=== PATIENT | female | born 1930 | race Caucasian/White ===

== ENCOUNTER 2016-11-09 13:50 | Inpatient (IN) ==
[2016-11-09] MEDS ORDERED: SODIUM CHLORIDE 0.9% 1,000 ML IV STA (14:37)
[2016-11-09] MEDS ORDERED: ALBUTEROL/IPRATROPIUM 3 ML NEB RESP TX STA (14:42)
--- NOTE | 2016-11-09 14:42 | Emergency Department Note ---
Harrison Romero Meredith, am scribing for, and in the presence of, Fredrick Foreman MD 14:39. Kellen Romero Phillip K, MD, personally performed the services described in this documentation, ascribed by Natacha Terry in my presence, and it is both accurate and complete [id number] . Arrival - Arrival Chief Complaint: Shortness of Breath Stated Complaint: ?pneumonia/afib ED Nursing Triage Note: pt found on floor by family this morning. didnt feel well yesterday. has been sick with a cough and cold. pt had low sugar on ems arrival. Mode of Arrival: Stretcher Limitations: No Limitations Source: Patient, Family, Old Records Reviewed, RN Notes Reviewed Time Seen by Provider: 11/09/16 14:32 - History of Present Illness HPI Narrative: Pt is an 86 y/o white female transferred to the ED by EMS after family found her on the floor this morning. When EMS arrived at [facility] she had a blood sugar of 35 mg/dL and was in atrial fibrillation. Pt was given D5 and normal saline. Pt had a liter of fluid and Zosyn IV. Her sugar has now improved and she is back in normal sinus rhythm. Pt has been ill with a cough and cold for about a week. She confirms fever, chills, and shortness of breath. At [facility], pt had a scan which showed a right lower lobe pneumonia. Pt has a history of HTN , HLD, thyroid disorder, and NIDDM. Daughter states pt is a former smoker. Onset (ago): hour(s) Allergies/Adverse Reactions: Allergies Allergy/AdvReac Type Severity Reaction Status Date / Time No Known Allergies Allergy Unverified 11/09/16 14:11 Review of System - Review of System 12 point system: reviewed and no additional remarkable complaints except as stated - Review of System Constitutional: Present: as per HPI, chills, fever, other (hypoglycemia) Respiratory: Present: as per HPI, cough, other (SOB) Cardiovascular: Present: as per HPI, other (a-fib) Medical,Surgical,& Family Hx - Medical History Cardio: History of: Hypertension Endocrine: History of: Diabetes Mellitus (NIDDM), Dyslipidemia, Thyroid Disorder - Surgical History Neurologic Surgeries: Patient denies: Neurologic Surgery - Family History Family History: Denies;: Additional Family History - Social History Smoking Status: Former smoker Exam Vital Signs: Vital Signs Temperature 97.5 F L 11/09/16 14:55 Pulse Rate 92 H 11/09/16 16:30 Respiratory Rate 20 11/09/16 16:30 Blood Pressure 113/61 11/09/16 16:30 O2 Sat by Pulse Oximetry 97 11/09/16 16:30 - General General appearance: alert, in no apparent distress - Head Head exam: Present: atraumatic, normocephalic - Eye Eye exam: Present: normal appearance, PERRL, EOMI - ENT ENT exam: Present: mucous membranes dry, normal external ear exam - Neck Neck exam: Present: full ROM, trachea midline. Absent: tenderness, meningismus , lymphadenopathy, thyromegaly - Chest Chest inspection: Present: symmetric chest wall rise. Absent: tenderness, rash - Respiratory Respiratory exam: Present: rales, wheezes (expiratory) - Cardiovascular Cardiovascular exam: Present: normal rhythm, tachycardia - Abdominal Exam Abdominal exam: Present: soft, normal bowel sounds. Absent: distention, tenderness - Extremities Exam Extremities exam: Present: full ROM, normal capillary refill. Absent: tenderness, pedal edema, calf tenderness - Back Exam Back exam: Present: full ROM. Absent: tenderness - Neurological Exam Neurological exam: Present: alert, oriented X3, CN II-XII intact. Absent: motor sensory deficit - Psychiatric Psychiatric exam: Present: normal affect, normal mood - Skin Skin exam: Present: warm, dry, intact, normal color Course Course Narrative: Patient discussed with the hospitalist who admitted for IV fluids and antibiotics. Results - Labs CBC & BMP: 11/09/16 15:15 11/09/16 15:15 Lab Results: I have reviewed the patients labs Labs: Laboratory Tests 11/09/16 15:15 WBC 15.8 H RBC 3.69 L Hgb 10.6 L Hct 33.7 L MCHC 31.5 L Plt Count 189 Neut % (Auto) 95.4 H Lymph % (Auto) 1.3 L Neut # (Auto) 15.1 H Lymph # (Auto) 0.2 L Laboratory Tests 11/09/16 11/09/16 14:06 15:15 Sodium 147 H Potassium 3.0 L Chloride 110 H Anion Gap 18.0 H BUN 51 H Creatinine 1.30 H BUN/Creatinine Ratio 39.00 H Glucose 154 H POC Glucose 245 H Calculated Osmolality 308.4 H Calcium 7.9 L ALT 12 L Total Protein 5.1 L Albumin 2.2 L Albumin/Globulin Ratio 0.7 L - EKG EKG results: interpreted by SAAD (sinus tachycardia) - Diagnostic Findings Procedure: Chest x-ray: report reviewed by me (Dense consolidation of the right upper lobe. Enlarged heart. Suspected hiatal hernia. ) Disposition Clinical Impression: Right upper lobe pneumonia, rule out early sepsis Case discussed with: patient Disposition: Still a Patient Condition: Critical
--- NOTE | 2016-11-09 14:53 | XRay Report ---
Portable chest. Indication: Shortness of breath. Comparison: Exam from earlier today. The heart is enlarged. Calcific plaque is present within the aortic knob. There is a large hiatal hernia suggested. There is consolidation of the right upper lobe. No pneumothorax or pleural effusion. Degenerative changes of both shoulders. Postoperative changes of the right shoulder. Scoliosis and degenerative change in the spinal column. Carotid bulb calcification. Impression: Dense consolidation of the right upper lobe. Enlarged heart. Suspected hiatal hernia. Follow-up recommended. PROCEDURE INTERPRETED AT [facility] DEPARTMENT OF RADIOLOGY Final Report Signed by: Dr. Mulu Yoon
[2016-11-09 15:34] LABS: Basophils # 0.1 10*3/uL (0.0-0.2); Basophils % 0.6 % (0.0-0.8); Hematocrit 33.7 VOL% (35.7-47.0); Hemoglobin 10.6 GM/DL (12.0-16.0); Immature Granulocytes % 0.8 %; Immature Granulocytes Absolute 0.13 #; Lymphocytes # 0.2 10*3/uL (1.4-4.0); Lymphocytes % 1.3 % (21.3-54.2); Mean Corpuscular HGB Conc 31.5 GM/DL (32-36); Mean Corpuscular Hemoglobin 29 PG (27-34); Mean Corpuscular Volume 91.3 FL (87-102); Monocytes # 0.3 10*3/uL (0.11-0.8); Monocytes % 1.9 % (1.7-12.7); NRBC # 0.02 10*3/uL; Neutrophils # 15.1 10*3/uL (1.4-7.4); Neutrophils % 95.4 % (38.7-73.9); Platelet Count 189 T/CUMM (130-400); Red Blood Count 3.69 MC/CUMM (3.8-5.5); Red Cell Distribution Width 17.1 % (9.3-17.3); White Blood Count 15.8 T/CUMM (4-12)
[2016-11-09 15:49] LABS: Albumin 2.2 G/DL (3.4-5.0); Bilirubin,Total 0.6 MG/DL (0.2-1.0); Calcium 7.9 MG/DL (8.5-10.1); Magnesium 2.2 MG/DL (1.8-2.4); Osmolality,Calculated 308.4 MOS/KG (273-304); Total Protein 5.1 G/DL (6.4-8.3)
--- NOTE | 2016-11-09 16:08 | Hospitalist History & Physical ---
<Mukund Esparza - Last Filed: 11/09/16 17:11> Assessment and Plan (1) RLL pneumonia Status: Acute Assessment and plan: Breathing treatments ordered. Oxygen therapy initiated. IV antibiotics ordered. Will continue to monitor Current Visit: Yes (2) Respiratory distress Status: Acute Assessment and plan: Pt. placed in ICU for close monitoring. ABGs ordered. O2 ordered for pt. Current Visit: Yes (3) Leukocytosis Status: Acute Assessment and plan: Believed to be secondary to underlying disease process. Will monitor CBC for any changes. Current Visit: Yes History of Present Illness Chief complaint: shortness of breath History of present illness: Ms. Lake is a 86-year-old white female patient was brought into the ED today via EMS from [facility]. Pt. was found lethargic on floor at home this am by granddaughter. Pt's daughter is at bedside and stated pt had a similar incident yesterday afternoon where she was found lethargic on living room floor. Pt. states that she doesn't remember episode. Pt's daughter said that the pt. didn't want to be brought in for examination at that time. Today when pt was found, BP was taken at home and reported to be "low". Upon arrival to patient's home, EMS discovered pt to be hypoglycemic with blood sugar of 35. The patient was taken to [facility] for stabilization. At [facility] patient was found to be hypotensive and in afib with RLL pneumonia. The patient was transferred here for further evaluation. Pt has been ill with a cough and cold for about a week. Pt. states that the cough was productive but she doesn't know how it looks. She did confirm feeling feverish and short of breath. Pt. is visibly having difficulties with breathing. O2 in ER at 0.5. R D [employer] increased to 2L. Pt. is a former smoker with a history of htn, hld, thyroid disorder. Pt. will be admitted to the ICU Allergies Allergy/AdvReac Type Severity Reaction Status Date / Time No Known Allergies Allergy Unverified 11/09/16 14:11 Medical,Surgical,& Family Hx - Medical History Cardio: History of: Hypertension Endocrine: History of: Diabetes Mellitus (NIDDM), Dyslipidemia, Thyroid Disorder - Surgical History Neurologic Surgeries: Patient denies: Neurologic Surgery - Family History Family History: Denies;: Additional Family History - Social History Smoking Status: Former smoker Lives With:: Children Functional capacity: independent ambulation - Constitutional Constitutional: Present: chills, fever(s) - EENT Eyes: Absent: loss of vision - Cardiovascular Cardiovascular: Absent: chest pain at rest - Respiratory Respiratory: Present: cough, dyspnea, wheezing - Gastrointestinal Gastrointestinal: Absent: abdominal pain, nausea, vomiting - Genitourinary Genitourinary: Absent: difficulty urinating - Neurological Neurological: Present: behavioral changes, confusion, memory loss Exam - Constitutional Vitals: Period Temp Pulse Resp BP Sys/Aquino Pulse Ox Last 24 Hr 97.5 F-97.5 F 89-98 18-24 97-109/57-66 96-98 General appearance: normal weight, mild distress - Head Head exam: Present: normal inspection, normocephalic - Eye Eye exam: Present: EOMI Pupils: Present: ROMANA - Respiratory Respiratory exam: Present: wheezes - Cardiovascular Cardiovascular exam: Present: irregular rhythm - GI/Abdominal GI/Abdominal exam: Present: normal bowel sounds, soft. Absent: tenderness - Extremities Exam Extremities exam: Present: normal inspection, normal capillary refill, full ROM. Absent: edema - Neurological Exam Neurological exam: Present: alert, oriented X3, normal gait - Psychiatric Psychiatric exam: Present: normal affect, normal mood - Skin Skin exam: Present: normal color, warm, dry Results - Labs CBC & BMP: 11/09/16 15:15 11/09/16 15:15 Lab Results: I have reviewed the past 24 hour labs <Randi Hagen - Last Filed: 11/10/16 07:33> History of Present Illness History of present illness: Ms. Lake is a 86 year old female with hypoglycemic episode,pneumonia and respiratory distress. ICU IV Zosyn ABG IV steroids SSC BC,SC IVF Nebs treatment Exam - Constitutional Vitals: Period Temp Pulse Resp BP Sys/Aquino Pulse Ox Last 24 Hr 97.4 F-98.8 F 7-100 19-28 76-140/41-75 91-100 Results - Labs CBC & BMP: 11/10/16 04:14 11/10/16 04:14
[2016-11-09] MEDS ORDERED: DEXTROSE 50% 25 GM/50 ML VIAL IV PRN (17:34)
[2016-11-09] MEDS ORDERED: guaiFENesin/DM ER 600-30 MG TABLET PO PRN (17:34)
[2016-11-09] MEDS ORDERED: ENOXAPARIN 40 MG/0.4 ML SYRINGE SUBCUT SCH (17:34)
[2016-11-09] MEDS ORDERED: ONDANSETRON 4 MG/2 ML VIAL IV PRN (17:34)
[2016-11-09] MEDS ORDERED: GLUCAGON 1 MG VIAL IM PRN (17:34)
[2016-11-09] MEDS ORDERED: POTASSIUM CHLORIDE INJ 10 MEQ in SODIUM CHLORIDE 0.9% 1,000 ML IV SCH (17:34)
[2016-11-09] MEDS ORDERED: ACETAMINOPHEN 325 MG TABLET PO PRN (17:34)
[2016-11-09] MEDS ORDERED: SODIUM CHLORIDE 0.9% 1,000 ML IV SCH (17:34)
[2016-11-09] MEDS ORDERED: methylPREDNISolone SOD SUC 40 MG/1 ML VIAL ONE (17:55)
[2016-11-09] MEDS: methylPREDNISolone SOD SUC 40 MG/1 ML VIAL IV SCH (18:14)
[2016-11-09 18:20] LABS: ABG Base Excess -5.4 MMOL/L (-2.5-2.5); ABG HCO3 17.7 MMOL/L (20-26); ABG Oxygen Saturation 94.3 % (95-100); ABG PCO2 27.1 MM HG (35-48); ABG PH 7.433 (7.35-7.45); ABG PO2 73.4 MM HG (80-95); ABG TCO2 18.5 MMOL/L (23-27); Allen Test Positive
[2016-11-09 18:43] LABS: Band Neutrophils 9 % (0-10); Lymphocytes 1 % (20-55); Segmented Neutrophils 87 % (50-85); Total Cells Counted 100
[2016-11-09 18:44] LABS: Platelet Estimate Adequate; Polychromasia Few
--- NOTE | 2016-11-09 18:51 | CT Report ---
CT of the head without contrast. Indication: Right-sided weakness. Comparison: Exam from earlier today at an outside hospital. There is calcific plaque present within the intracranial internal carotid arteries and vertebral arteries. The ventricles are normal in size and configuration for the patient's age. There is no mass effect, midline shift, or area of hemorrhage. No cortical infarcts are seen at this time. There are prominent areas of low density in the periventricular white matter, likely attributable to chronic microvascular ischemia. There are lacunar infarcts in the basal ganglia bilaterally, worse on the right, including the right external capsule. The calvarium is intact. The included paranasal sinuses and the mastoid air cells are clear. Impression: Prominent findings of chronic microvascular ischemia. Lacunar infarcts within the basal ganglia. No cortical infarct is seen at this time. The CT exam was performed using one or more of the following dose reduction techniques: Automated exposure control, adjustment of the mA and/or kV according to patient size, or use of iterative reconstruction technique. PROCEDURE INTERPRETED AT [facility] DEPARTMENT OF RADIOLOGY Final Report Signed by: Dr. Mulu Yoon
[2016-11-09] MEDS: INSULIN LISPRO 100 UNIT/ML SUBCUT SCH ×2 (19:01→23:51)
[2016-11-09] MEDS: PIPERACILLIN/TAZOBACTAM 3,375 MG in SODIUM CHLORIDE 0.9% 100 ML IV SCH (19:27)
[2016-11-09 19:56] LABS: INR 1.1; PT Patient Result 11.9 SECS; Partial Thromboplastin Time 36.4 SECS (0-40)
[2016-11-09] MEDS ORDERED: tiZANidine 4 MG TABLET PO PRN (21:08)
[2016-11-09] MEDS ORDERED: SODIUM CHLORIDE 0.9% 500 ML IV ONE (22:18)
[2016-11-09] MEDS ORDERED: PHENYLEPHRINE DRIP 40 MG/250 ML PREMIX IV ONE (23:10)
--- NOTE | 2016-11-09 23:16 | Event Note ---
Patient had a change in mental status. She is becoming less responsive. We repeated a CT scan. Results of that are pending. This is a second CT scan of the night. According to nursing this is different than how she was earlier. When I examined the patient she is minimally responsive but will open up her eyes when you talk to her. Her blood pressure is significantly lower ordered pressors to be placed on the patient. This could be part of a sepsis scenario or could be a stroke.
[2016-11-09] MEDS ORDERED: PHENYLEPHRINE DRIP 40 MG/250 ML PREMIX IV SCH (23:30)
[2016-11-10] MEDS: methylPREDNISolone SOD SUC 40 MG/1 ML VIAL IV SCH ×3 (00:38→16:26)
[2016-11-10] MEDS: PIPERACILLIN/TAZOBACTAM 3,375 MG in SODIUM CHLORIDE 0.9% 100 ML IV SCH ×3 (03:20→20:05)
[2016-11-10 04:50] LABS: Basophils # 0.1 10*3/uL (0.0-0.2); Basophils % 0.6 % (0.0-0.8); Hematocrit 29.9 VOL% (35.7-47.0); Hemoglobin 9.6 GM/DL (12.0-16.0); Immature Granulocytes % 0.8 %; Immature Granulocytes Absolute 0.14 #; Lymphocytes # 0.2 10*3/uL (1.4-4.0); Mean Corpuscular HGB Conc 32.1 GM/DL (32-36); Mean Corpuscular Hemoglobin 29 PG (27-34); Mean Corpuscular Volume 90.1 FL (87-102); Monocytes # 0.2 10*3/uL (0.11-0.8); Monocytes % 1.2 % (1.7-12.7); Neutrophils # 17.2 10*3/uL (1.4-7.4); Neutrophils % 96.4 % (38.7-73.9); Platelet Count 185 T/CUMM (130-400); Red Blood Count 3.32 MC/CUMM (3.8-5.5); Red Cell Distribution Width 17.3 % (9.3-17.3); White Blood Count 17.8 T/CUMM (4-12)
[2016-11-10 05:11] LABS: Alanine Aminotransferase 11 U/L (13-56); Albumin 1.8 G/DL (3.4-5.0); Alkaline Phosphatase 88 U/L (45-117); Aspartate Amino Transferase 15 U/L (0-37); Blood Urea Nitrogen 45 MG/DL (7-18); Calcium 7.8 MG/DL (8.5-10.1); Cholesterol 69 MG/DL (50-200); Glucose 141 MG/DL (74-106); HDL Cholesterol < 10 MG/DL (40-60); Magnesium 2.3 MG/DL (1.8-2.4); Potassium 3.5 MMOL/L (3.5-5.1); Sodium 150 MMOL/L (136-145); Total Protein 4.5 G/DL (6.4-8.3); Triglycerides 102 MG/DL (2-150); VLDL CHOLESTEROL 20.4 MG/DL
[2016-11-10 05:14] LABS: Band Neutrophils 4 % (0-10); Burr Cells Slight; Platelet Estimate Normal; Segmented Neutrophils 95 % (50-85); Total Cells Counted 100
[2016-11-10] MEDS: INSULIN LISPRO 100 UNIT/ML SUBCUT SCH ×3 (05:54→18:35)
--- NOTE | 2016-11-10 06:32 | CT Report ---
CT head/brain wo con Indication: 86-year-old female, altered mental status. Change occurred in [address] BRAIN WITH AND WITHOUT CONTRAST DLP: 1073 mGy*cm. One or more of the following dose reduction techniques was used: Automated exposure control, adjustment of the mA and/or kV according the patient size, or use of iterative reconstruction techniques. Comparison: 11/10/2016 at 1839 hours. Date of admission: 11/10/2016. Technique: Axial CT images of the brain were obtained before and after the IV administration of Omnipaque 350, 80 cc. Findings: Generalized atrophy and extensive patchy periventricular white matter hypodensities again shown, stable. Prior left frontal lobe infarct is stable. No acute hemorrhage. No mass or mass effect. No new ischemic changes identified on CT. Vascular calcinosis of the augustine of Leon noted. No bone lesion seen. Impression: No change from 4 hours earlier. PROCEDURE INTERPRETED AT [facility] DEPARTMENT OF RADIOLOGY Final Report Signed by: Quintin Irene M.D.
[2016-11-10] MEDS ORDERED: PANTOPRAZOLE 40 MG TABLET PO SCH (09:00)
[2016-11-10] MEDS: ASPIRIN 300 MG SUPP RECTAL SCH (09:22)
--- NOTE | 2016-11-10 09:42 | Hospitalist Progress Note ---
Assessment and Plan (1) Altered mental status Status: Acute Assessment and plan: CT head x2- showed no acute changes. Patient is less conversive, her right UE is flaccid. Her WBC is up,no fever documented. Her sodium is higher at 150. Plan DC IV Nacl start free water MR of the brain Speech therapy for swallowing eval Carotids Echo cardiac enzymes, ammonia level Aspirin Neuro consult Current Visit: Yes (2) Hypernatremia Status: Acute Assessment and plan: will start free water, dc Nacl, follow response Current Visit: Yes (3) Right upper lobe pneumonia Status: Acute Assessment and plan: continue with IV Zosyn. follow cultures Current Visit: Yes (4) Acute respiratory distress Status: Acute Assessment and plan: continue with IV steroids, nebs treatment and IV antibiotics Current Visit: Yes (5) Right sided weakness Status: Acute Assessment and plan: will r/o a TIA vs CVA Plan MRI ASA stroke workup lipids-noted Current Visit: Yes Hospitalist: Subjective Interval history: Patient had a mental status change overnight. A repeat CT head didnt show any acute change. This am, she was less conversive, restless and her right upper extremity was flaccid with some weakness on her right side. Exam - Constitutional Vitals: Period Temp Pulse Resp BP Sys/Aquino Pulse Ox Last 24 Hr 97.4 F-98.8 F 7-100 19-28 76-140/41-75 91-100 General appearance: no acute distress, other (right sided weakness UE>LE) - Head Head exam: Present: normal inspection - Respiratory Respiratory exam: Present: clear to auscultation bilaterally - Cardiovascular Cardiovascular exam: Present: regular rate and rhythm - GI/Abdominal GI/Abdominal exam: Present: normal bowel sounds - Extremities Exam Extremities exam: Present: normal inspection - Neurological Exam Neurological exam: Present: alert (less conversive, flaccid RUE), other Results - Labs CBC & BMP: 11/10/16 04:14 11/10/16 04:14 Lab Results: I have reviewed the past 24 hour labs
--- NOTE | 2016-11-10 10:41 | Physician Query Form ---
CLICK EDIT DOCUMENT TO SELECT QUERY ANSWER --> OK --> SIGN Clarisa Lindsey RN Clinical Vendor Relationship Manager W) [phone] (f) [phone] [email or web address]: Make your selection(s) from the choices in EACH section by typing an "x" and enter comments in the comment section. Please use your independent medical judgment in providing your response. This request does not imply that any particular answer is desired or expected. CLINICAL INDICATORS: (Providers should not edit this section) Based on documentation of "Acute respiratory distress" "Acute pneumonia" Oxygen saturation 94% on 2L NC. tachypnea, shortness of breath, labored respirations. respirations of 28. If possible, please further clarify the type and acuity of respiratory diagnosis : AxCUITY: (x ) Acute ( ) Chronic ( ) Acute on Chronic TYPE: ( x) Respiratory failure with hypoxia ( ) Respiratory failure with hypercapnia ( ) Respiratory Arrest ( ) Postprocedural/postoperative respiratory failure ( ) ARDS (Adult/Acute Respiratory Distress Syndrome) ( ) Other, please specify: ( ) Clinically unable to determine Recognized criteria for respiratory failure PH <7.35 or >7.45 PO2 <60 PCO2 >50 RR >24 O2 Sat <90% on RA or <95% on O2 Use of accessory muscles Unable to speak in full sentences Intubation is not required COMMENTS: Use of terms such as suspected, likely, or probable (associated with a specific diagnosis that is being evaluated, monitored, or treated as if it exists) are acceptable and can be restated in the discharge summary if not ruled out. MTDD
--- NOTE | 2016-11-10 10:45 | Physician Query Form ---
CLICK EDIT DOCUMENT TO SELECT QUERY ANSWER --> OK --> SIGN Clarisa Lindsey RN Clinical Representative W) [phone] (f) [phone] [email or web address]: Make your selection(s) from the choices in EACH section by typing an "x" and enter comments in the comment section. Please use your independent medical judgment in providing your response. This request does not imply that any particular answer is desired or expected. CLINICAL INDICATORS: (Providers should not edit this section) Based on documentation of "Rule out early sepsis" "Blood pressure is significantly lower. ordered pressors. Could be a part of sepsis scenario" "Had change in mental status" Treated with IV Zosyn, IV Jaycob, and IV Solu Medrol. WBC 17.8. Banded Neutrophils 9 Please clarify which, if any, of the following is the etiology of the above symptoms and treatment rendered: (x ) Septic Shock (severe sepsis with hypotension) ( ) Severe Sepsis (sepsis with acute organ failure) - Please specify type acute organ failure: ( ) Sepsis due to a localized infection, please specify site: ( ) Sepsis due to a device, implant or graft, please specify: ( ) Localized infection only, without systemic illness, please specify site: ( ) Bacteremia (abnormal lab finding only, does not indicate systemic illness) ( ) Other condition, please specify: ( ) Clinically unable to determine Criteria for Sepsis (SIRS due to an infection) should be based on 2 or more of the following being present: Temperature > 101F or < 96.8F WBC > 12,000 or < 4,000, or > 10% bands Tachycardia HR > 90 beats/minute Tachypnea RR > 20 breaths/minute or PaCO2 > 32mmHg Lactate level > 2.0 mmol/L (>4 is equivalent to severe sepsis) Altered Mental Status Mottling of skin or prolonged capillary refill Non-diabetic hyperglycemia (blood sugar >120 mg/dl) Other evidence of acute organ failure associated with sepsis ( severe sepsis) COMMENTS: Use of terms such as suspected, likely, or probable (associated with a specific diagnosis that is being evaluated, monitored, or treated as if it exists) are acceptable and can be restated in the discharge summary if not ruled out. MTDD
--- NOTE | 2016-11-10 10:48 | Physician Query Form ---
CLICK EDIT DOCUMENT TO SELECT QUERY ANSWER --> OK --> SIGN Clarisa Lindsey RN Clinical Upholstery Trimmer W) [phone] (f) [phone] [email or web address]: Make your selection(s) from the choices in EACH section by typing an "x" and enter comments in the comment section. Please use your independent medical judgment in providing your response. This request does not imply that any particular answer is desired or expected. CLINICAL INDICATORS: (Providers should not edit this section) Based on documentation of "Acute pneumonia" Acute hyponatremia" "Acute altered mental status" "Less conversive" Treated with IV Zosyn, IV Solu Medrol, and NS bolus. ACUITY: (x ) Acute ( ) Acute on Chronic ( ) Chronic ( ) Clinically unable to determine NATURE: ( ) Delirium due to general medical condition ( ) Dementia (x ) Encephalopathy ( ) Unconscious ( ) Transient level of awareness ( ) Comatose ( ) Locked-in State ( ) Persistent Vegetative State ( ) Other, please specify: ( ) Clinically unable to determine Please indicate the underlying cause of the altered mental status (CHECK ALL THAT APPLY): ( ) Baseline dementia ( ) Alzheimer's disease ( ) Parkinson's disease ( ) Lewy body dementia (x ) Acute stroke ( ) Late effect of stroke ( ) Reactive (from emotional stress, psychological trauma) ( ) Due to narcotics/other drugs ( ) Post procedural delirium ( ) Transient ischemic attack ( ) Generalized cerebral edema ( ) Normal pressure hydrocephalus ( ) Psychiatric illness ( ) Other, please specify: ( ) Clinically unable to determine Please indicate if there is an infection, sepsis, dehydration or specific organ failure that is causing the dementia. Be specific with clarifying the relationship between that process and the mental status change. COMMENTS: Use of terms such as suspected, likely, or probable (associated with a specific diagnosis that is being evaluated, monitored, or treated as if it exists) are acceptable and can be restated in the discharge summary if not ruled out. MTDD
--- NOTE | 2016-11-10 10:53 | Physician Query Form ---
CLICK EDIT DOCUMENT TO SELECT QUERY ANSWER --> OK --> SIGN Clarisa Lindsey RN Clinical Home Care Attendant W) [phone] (f) [phone] [email or web address] PROVIDERS: Make your selection(s) from the choices in EACH section by typing an "x" and enter comments in the comment section. Please use your independent medical judgment in providing your response. This request does not imply that any particular answer is desired or expected. CLINICAL INDICATORS: (Providers should not edit this section) Based on documentation of "Had a change in mental status" "Blood pressure is significantly lower. ordered pressors. Could be a stroke" "CT didnt show any acute changes" "Less conversive, restless, right upper ext was flaccid, weakness on right side." CT done. NS bolus given, IV JOHANNA started. Based on the above, could you clarify the appropriate diagnosis, if significant , that supports the above abnormalities and additional evaluation, monitoring, and/or treatment rendered: x( ) Left sided hemiparesis due to acute CVA ( ) Left sided hemiparesis due to ( ) Did not have a CVA ( ) Other, please specify: ( ) Clinically unable to determine COMMENTS: Use of terms such as suspected, likely, or probable (associated with a specific diagnosis that is being evaluated, monitored, or treated as if it exists) are acceptable and can be restated in the discharge summary if not ruled out. MTDD
--- NOTE | 2016-11-10 11:12 | Magnetic Resonance Report ---
MR angio head wo con (COW) Indication: Right-sided weakness Comparison: None Technique: MRA of the brain was performed without the use of intravenous contrast. 3-D reformats provided. Findings: Study somewhat limited secondary to motion. No significant vessel cut off or gross evidence of aneurysm formation demonstrated within the anterior or posterior intracranial circulation. origin of the right PILLAR MAN noted. The left posterior commuting artery is not well demonstrated. IMPRESSION: Limited exam without convincing evidence of significant intracranial arterial abnormality. PROCEDURE INTERPRETED AT [facility] DEPARTMENT OF RADIOLOGY Final Report Signed by: Dr Hernan Moreira
[2016-11-10 11:16] LABS: ABG Base Excess -10.9 MMOL/L (-2.5-2.5); ABG HCO3 15.9 MMOL/L (20-26); ABG Oxygen Saturation 96.6 % (95-100); ABG PCO2 23.3 MM HG (35-48); ABG PH 7.359 (7.35-7.45); ABG TCO2 11.8 MMOL/L (23-27)
[2016-11-10] MEDS ORDERED: DILTIAZEM INJ 100 MG in SODIUM CHLORIDE 0.9% 100 ML IV SCH (11:30)
[2016-11-10] MEDS: PANTOPRAZOLE 40 MG VIAL IV SCH (11:41)
[2016-11-10] MEDS ORDERED: DIGOXIN 0.5 MG/2 ML AMP IV ONE (12:26)
--- NOTE | 2016-11-10 12:39 | Cardiology Consult Note ---
<Mulu Otero - Last Filed: 11/10/16 13:52> Assessment and Plan - Time spent with patient Time spent with patient: Greater than 30 minutes (1) Atrial fibrillation with rapid ventricular response Status: Acute Assessment and plan: This appears to be a new onset. IV digoxin and Cardizem unsuccessful. After further discussing this patient with Dr. Ochoa, we will switch patient to IV amiodarone and anticoagulate her with heparin drip. Current Visit: Yes (2) Altered mental status Status: Acute Assessment and plan: Urine culture and sputum culture revealed no growth at 12 hours. Blood cultures pending. Carotid ultrasound pending. CT head x2- showed no acute changes. Head MRA showed no evidence of significant intracranial arterial abnormality. Neurology has been consulted by attending. Current Visit: Yes (3) Dyslipidemia Status: Chronic Assessment and plan: Continue current plan of care with lipid lowering agent. Current Visit: Yes (4) Right sided weakness Status: Acute Assessment and plan: Defer further management to attending and neurology. Current Visit: Yes (5) Right upper lobe pneumonia Status: Acute Assessment and plan: Continue current plan of care with antibiotics. Current Visit: Yes (6) Hypertension Status: Acute Assessment and plan: Patient has actually been hypotensive this admission. All antihypertensive medications are on hold. Current Visit: Yes (7) Hypothyroidism Status: Acute Assessment and plan: I have ordered a TSH Current Visit: Yes (8) Anemia Status: Acute Assessment and plan: Patient is mildly anemic. Will order anemia profile and check stools for occult blood. Current Visit: Yes (9) Acute respiratory distress Status: Acute Assessment and plan: Continue with duo nebs, IV steroids and IV antibiotics. Current Visit: Yes History of Present Illness - Data of Consult Patient: new to practice Consult date: 11/10/16 Requesting Physician: Randi Hagen - Consult Narrative Reason for consult: Atrial fibrillation with rapid ventricular response History of present illness: Disclaimer: Patient is a very poor historian. Unable to obtain adequate review of systems and past medical history due to patient's altered mental status. Majority of information in this HPI was obtained from medical personnel and past medical records. Ms. Lake is a 86 year old female without known history of coronary artery disease, not routinely followed by cardiology. Patient was brought into the emergency department yesterday via EMS from [facility]. Patient's granddaughter found her at home with altered mental status. At that time the patient's granddaughter arrived at her home the patient was on the floor and seemed very lethargic. Patient has cardiac risk factors significant for advanced age, hyperlipidemia former smoker, sedentary lifestyle and hypertension. Patient has a past medical history of hypothyroidism, patient is on Synthroid. No known prior history of atrial fibrillation. Patient was transferred from [facility] yesterday after being found at home by her granddaughter with altered mental status. Patient was noted to be on the floor at the time of her granddaughters arrival to her home and seemed to be very lethargic. Her blood pressure was noted to be "low" when her granddaughter took it at home. Apparently, she had a similar incident 2 days ago where she was found to be lethargic on living room floor. However, at that time the patient refused to go to ER for further evaluation. Upon arrival to [facility] ER yesterday, patient was noted to be hypoglycemic with a blood sugar of 35. She was also hypotensive and noted to be in atrial fibrillation. She was then transferred to [facility]. Upon arrival to [place] ER she was noted to be in normal sinus rhythm. Chest x-ray revealed right lower lobe pneumonia. Head CT revealed no cortical infarct. Patient was admitted to the hospitalist' s service and housed in the ICU. Late last night patient was noted to have a change in mental status. She became less responsive. CT head was repeated at that time. No new findings were noted. She was seen and examined in the ICU. Patient is lethargic this afternoon and appears to be in mild distress. Altered mental status continues. Oxygen saturations are stable. Right-sided weakness noted. Nurse reports that after she came back from MRI she was noted to be in atrial fibrillation with rapid ventricular response. Patient did not respond to IV Cardizem nor IV digoxin. Will change patient to IV amiodarone at this time and anticoagulate her with heparin drip. Head MRA showed no evidence of significant intracranial arterial abnormality. Neurology has been consulted by attending. Echo has been ordered. Carotid ultrasound pending. We will continue to monitor patient closely in the ICU. CC: Randi Hagen MD - Home Medications and Allergies Home Medications: Home Medications Medication Instructions Recorded Confirmed Type Levothyroxine Tab [Synthroid Tab] 0.025 mg PO DAILY 11/09/16 11/09/16 History Lisinopril/Hydrochlorothiazide 1 tablet PO DAILY 11/09/16 11/09/16 History [Lisinopril-Hctz 10-12.5 mg Tab] Lovastatin 80 mg PO AC LUNCH 11/09/16 11/09/16 History Sertraline [Zoloft] 50 mg PO BEDTIME 11/09/16 11/09/16 History rOPINIRole [Requip] 0.5 mg PO BEDTIME 11/09/16 11/09/16 History tiZANidine [Zanaflex] 2 mg PO Q8HR PRN 11/09/16 11/09/16 History Allergies/Adverse Reactions: Allergies Allergy/AdvReac Type Severity Reaction Status Date / Time No Known Allergies Allergy Unverified 11/09/16 14:11 ROS unobtainable: due to mental status Medical,Surgical,& Family Hx - Medical History Cardio: History of: Hypertension Neurology: History of: Dementia Endocrine: History of: Dyslipidemia, Thyroid Disorder Gastrointestinal: History of: Diverticulitis/ Diverticulosis, Ulcerative Colitis - Surgical History Neurologic Surgeries: Patient denies: Neurologic Surgery HEENT Surgeries: Surgical HX of: Eye Surgery (cataracts) Abdominal Surgeries: Surgical HX of: Cholecystectomy Reproductive Surgeries: Surgical HX of;: Hysterectomy Orthopedic Surgeries: Surgical HX of;: Orthopedic Surgery (shoulder repair) - Family History Family History: Reports;: Family Cancer (father colon, brother gastric), Family Heart Disease (siblings CABG, Mother [place], brother [place]) Denies;: Additional Family History - Social History Smoking Status: Former smoker Physical Examination Vital Signs Temp Pulse Resp BP Pulse Ox 97.5 F L 98 H 18 109/66 98 11/09/16 14:02 11/09/16 14:02 11/09/16 14:02 11/09/16 14:02 11/09/16 14:02 General: Present: Other (Patient appears lethargic and in mild distress.) Neck: Present: Supple Neck, Midline Trachea, No Masses Cardiac: Present: No Murmur, Tachycardia, Other (Atrial fibrillation with rapid ventricular response). Absent: Gallop Lungs: Present: Bibasilar Rales, Scattered Rhonchi, Oxygen Neuro: Present: Other (Right upper extremity weakness) Abdomen: Present: Soft, Active Bowel Sounds, No Masses, Non-Tender. Absent: Tender, Firm Skin: Present: Clear. Absent: Rash, Suspicious Lesions, Ulceration Extremities: Present: No Clubbing, No Cyanosis, No Edema, Normal Upper Extr. Pulses, Normal Lower Extr. Pulses Result/EKG - Labs CBC & BMP: 11/10/16 04:14 11/10/16 04:14 Lab Results: I have reviewed the past 24 hour labs Labs: Laboratory Results - last 24 hr 11/09/16 11/09/16 11/09/16 18:15 18:24 18:25 WBC RBC Hgb Hct MCV MCH MCHC RDW Plt Count MPV Neut % (Auto) Lymph % (Auto) [place] % (Auto) Eos % (Auto) Baso % (Auto) Neut # (Auto) Lymph # (Auto) [place] # (Auto) Eos # (Auto) Baso # (Auto) Total Counted Immature Gran % Nucleated RBC % Immature Gran # Segmented Neutrophils Band Neutrophils Monocytes Nucleated RBCs # Platelet Estimate Yariel Cells Morphology Comment INR PT Patient/Control Mix Circ Anticoag PTT ABG pH 7.433 ABG pCO2 27.1 L ABG pO2 73.4 L ABG HCO3 17.7 L ABG Total CO2 18.5 L ABG O2 Saturation 94.3 L ABG Base Excess -5.4 L FiO2 28.00 Sodium Potassium Chloride Carbon Dioxide Anion Gap BUN Creatinine GFR Calculation BUN/Creatinine Ratio Glucose POC Glucose 110 H Calculated Osmolality Lactic Acid 2.0 Calcium Magnesium Total Bilirubin AST ALT Alkaline Phosphatase Total Protein Albumin Globulin Albumin/Globulin Ratio Triglycerides Cholesterol LDL Cholesterol VLDL Cholesterol HDL Cholesterol Heart Disease Risk Ratio 11/09/16 11/09/16 11/09/16 19:20 22:10 23:47 WBC RBC Hgb Hct MCV MCH MCHC RDW Plt Count MPV Neut % (Auto) Lymph % (Auto) [place] % (Auto) Eos % (Auto) Baso % (Auto) Neut # (Auto) Lymph # (Auto) [place] # (Auto) Eos # (Auto) Baso # (Auto) Total Counted Immature Gran % Nucleated RBC % Immature Gran # Segmented Neutrophils Band Neutrophils Monocytes Nucleated RBCs # Platelet Estimate Yariel Cells Morphology Comment INR 1.1 PT Patient/Control Mix 11.9 Circ Anticoag PTT 36.4 ABG pH ABG pCO2 ABG pO2 ABG HCO3 ABG Total CO2 ABG O2 Saturation ABG Base Excess FiO2 Sodium Potassium Chloride Carbon Dioxide Anion Gap BUN Creatinine GFR Calculation BUN/Creatinine Ratio Glucose POC Glucose 139 H 144 H Calculated Osmolality Lactic Acid Calcium Magnesium Total Bilirubin AST ALT Alkaline Phosphatase Total Protein Albumin Globulin Albumin/Globulin Ratio Triglycerides Cholesterol LDL Cholesterol VLDL Cholesterol HDL Cholesterol Heart Disease Risk Ratio 11/10/16 11/10/16 11/10/16 04:14 04:14 04:14 WBC 17.8 H RBC 3.32 L Hgb 9.6 L Hct 29.9 L MCV 90.1 MCH 29 MCHC 32.1 RDW 17.3 Plt Count 185 MPV 11.0 Neut % (Auto) 96.4 H Lymph % (Auto) 1.0 L [place] % (Auto) 1.2 L Eos % (Auto) 0.0 Baso % (Auto) 0.6 Neut # (Auto) 17.2 H Lymph # (Auto) 0.2 L [place] # (Auto) 0.2 Eos # (Auto) 0.0 Baso # (Auto) 0.1 Total Counted 100 Immature Gran % 0.8 Nucleated RBC % 0.0 Immature Gran # 0.14 Segmented Neutrophils 95 H Band Neutrophils 4 Monocytes 1 L Nucleated RBCs # 0.00 Platelet Estimate Normal [place] Cells Slight Morphology Comment INR PT Patient/Control Mix Circ Anticoag PTT ABG pH ABG pCO2 ABG pO2 ABG HCO3 ABG Total CO2 ABG O2 Saturation ABG Base Excess FiO2 Sodium 150 H Potassium 3.5 Chloride 117 H Carbon Dioxide 17 L Anion Gap 19.5 H BUN 45 H Creatinine 0.90 GFR Calculation 54 BUN/Creatinine Ratio 50.00 H Glucose 141 H POC Glucose Calculated Osmolality 311.0 H Lactic Acid 1.3 Calcium 7.8 L Magnesium 2.3 Total Bilirubin 1.00 AST 15 ALT 11 L Alkaline Phosphatase 88 Total Protein 4.5 L Albumin 1.8 L Globulin 2.7 Albumin/Globulin Ratio 0.6 L Triglycerides 102 Cholesterol 69 LDL Cholesterol 33.0 VLDL Cholesterol 20.4 HDL Cholesterol < 10 L Heart Disease Risk Ratio 6.90 11/10/16 11/10/16 11/10/16 05:49 09:39 11:16 WBC RBC Hgb Hct MCV MCH MCHC RDW Plt Count MPV Neut % (Auto) Lymph % (Auto) [place] % (Auto) Eos % (Auto) Baso % (Auto) Neut # (Auto) Lymph # (Auto) [place] # (Auto) Eos # (Auto) Baso # (Auto) Total Counted Immature Gran % Nucleated RBC % Immature Gran # Segmented Neutrophils Band Neutrophils Monocytes Nucleated RBCs # Platelet Estimate [place] Cells Morphology Comment INR PT Patient/Control Mix Circ Anticoag PTT ABG pH 7.359 ABG pCO2 23.3 L ABG pO2 89.0 ABG HCO3 15.9 L ABG Total CO2 11.8 L ABG O2 Saturation 96.6 ABG Base Excess -10.9 L FiO2 32.00 Sodium Potassium Chloride Carbon Dioxide Anion Gap BUN Creatinine GFR Calculation BUN/Creatinine Ratio Glucose POC Glucose 145 H 131 H Calculated Osmolality Lactic Acid Calcium Magnesium Total Bilirubin AST ALT Alkaline Phosphatase Total Protein Albumin Globulin Albumin/Globulin Ratio Triglycerides Cholesterol LDL Cholesterol VLDL Cholesterol HDL Cholesterol Heart Disease Risk Ratio 11/10/16 11:38 WBC RBC Hgb Hct MCV MCH MCHC RDW Plt Count MPV Neut % (Auto) Lymph % (Auto) [place] % (Auto) Eos % (Auto) Baso % (Auto) Neut # (Auto) Lymph # (Auto) [place] # (Auto) Eos # (Auto) Baso # (Auto) Total Counted Immature Gran % Nucleated RBC % Immature Gran # Segmented Neutrophils Band Neutrophils Monocytes Nucleated RBCs # Platelet Estimate [place] Cells Morphology Comment INR PT Patient/Control Mix Circ Anticoag PTT ABG pH ABG pCO2 ABG pO2 ABG HCO3 ABG Total CO2 ABG O2 Saturation ABG Base Excess FiO2 Sodium Potassium Chloride Carbon Dioxide Anion Gap BUN Creatinine GFR Calculation BUN/Creatinine Ratio Glucose POC Glucose 133 H Calculated Osmolality Lactic Acid Calcium Magnesium Total Bilirubin AST ALT Alkaline Phosphatase Total Protein Albumin Globulin Albumin/Globulin Ratio Triglycerides Cholesterol LDL Cholesterol VLDL Cholesterol HDL Cholesterol Heart Disease Risk Ratio <Tracey Ochoa - Last Filed: 11/10/16 17:08> History of Present Illness - Consult Narrative History of present illness: I personally interviewed and examined the patient, reviewed the chart and discussed medical decision-making with practitioner Branden. I have read this note and agree with the findings herein. The patient likely has her paroxysmal atrial fibrillation due to her pneumonia, possibly sepsis contributing to her hypotension. It is very concerning that she has right upper extremity paralysis , I suspect she may have had a stroke. We're going to begin anticoagulation. Because her rhythm has been paroxysmal we will try amiodarone to keep her in a regular rhythm. I have discussed the patient's care with her daughter and son- in-law. CC: Randi Hagen MD Physical Examination Vital Signs Temp Pulse Resp BP Pulse Ox 97.5 F L 98 H 18 109/66 98 11/09/16 14:02 11/09/16 14:02 11/09/16 14:02 11/09/16 14:02 11/09/16 14:02 Result/EKG - Labs CBC & BMP: 11/10/16 14:17 11/10/16 04:14 Labs: Laboratory Results - last 24 hr 11/09/16 11/09/16 11/09/16 18:15 18:24 18:25 WBC RBC Hgb Hct MCV MCH MCHC RDW Plt Count MPV Neut % (Auto) Lymph % (Auto) [place] % (Auto) Eos % (Auto) Baso % (Auto) Neut # (Auto) Lymph # (Auto) [place] # (Auto) Eos # (Auto) Baso # (Auto) Total Counted Immature Gran % Nucleated RBC % Immature Gran # Segmented Neutrophils Band Neutrophils Lymphocytes Monocytes Nucleated RBCs # Platelet Estimate Yariel Cells Morphology Comment ESR Westergren Absolute Retic Percent Retic Retic Hgb Equivalent INR PT Patient/Control Mix Circ Anticoag PTT ABG pH 7.433 ABG pCO2 27.1 L ABG pO2 73.4 L ABG HCO3 17.7 L ABG Total CO2 18.5 L ABG O2 Saturation 94.3 L ABG Base Excess -5.4 L FiO2 28.00 Sodium Potassium Chloride Carbon Dioxide Anion Gap BUN Creatinine GFR Calculation BUN/Creatinine Ratio Glucose POC Glucose 110 H Calculated Osmolality Lactic Acid 2.0 Calcium Magnesium Ferritin Total Bilirubin AST ALT Alkaline Phosphatase Ammonia Total Creatine Kinase CK-MB (CK-2) CK and CKMB Interp Troponin I Total Protein Albumin Globulin Albumin/Globulin Ratio Triglycerides Cholesterol LDL Cholesterol VLDL Cholesterol HDL Cholesterol Heart Disease Risk Ratio TSH 3rd Generation Urine Color Urine Appearance Urine pH Ur Specific [place] Urine Protein Urine Glucose (UA) Urine Ketones Urine Blood Urine Nitrate Urine Bilirubin Urine Urobilinogen Urine Leukocytes Urine RBC Urine WBC Ur Culture Indicated? REYNA (IgG-AHG) REYNA, Polyspecific 11/09/16 11/09/16 11/09/16 19:20 22:10 23:47 WBC RBC Hgb Hct MCV MCH MCHC RDW Plt Count MPV Neut % (Auto) Lymph % (Auto) [place] % (Auto) Eos % (Auto) Baso % (Auto) Neut # (Auto) Lymph # (Auto) [place] # (Auto) Eos # (Auto) Baso # (Auto) Total Counted Immature Gran % Nucleated RBC % Immature Gran # Segmented Neutrophils Band Neutrophils Lymphocytes Monocytes Nucleated RBCs # Platelet Estimate [place] Cells Morphology Comment ESR Westergren Absolute Retic Percent Retic Retic Hgb Equivalent INR 1.1 PT Patient/Control Mix 11.9 Circ Anticoag PTT 36.4 ABG pH ABG pCO2 ABG pO2 ABG HCO3 ABG Total CO2 ABG O2 Saturation ABG Base Excess FiO2 Sodium Potassium Chloride Carbon Dioxide Anion Gap BUN Creatinine GFR Calculation BUN/Creatinine Ratio Glucose POC Glucose 139 H 144 H Calculated Osmolality Lactic Acid Calcium Magnesium Ferritin Total Bilirubin AST ALT Alkaline Phosphatase Ammonia Total Creatine Kinase CK-MB (CK-2) CK and CKMB Interp Troponin I Total Protein Albumin Globulin Albumin/Globulin Ratio Triglycerides Cholesterol LDL Cholesterol VLDL Cholesterol HDL Cholesterol Heart Disease Risk Ratio TSH 3rd Generation Urine Color Urine Appearance Urine pH Ur Specific [place] Urine Protein Urine Glucose (UA) Urine Ketones Urine Blood Urine Nitrate Urine Bilirubin Urine Urobilinogen Urine Leukocytes Urine RBC Urine WBC Ur Culture Indicated? REYNA (IgG-AHG) REYNA, Polyspecific 11/10/16 11/10/16 11/10/16 04:14 04:14 04:14 WBC 17.8 H RBC 3.32 L Hgb 9.6 L Hct 29.9 L MCV 90.1 MCH 29 MCHC 32.1 RDW 17.3 Plt Count 185 MPV 11.0 Neut % (Auto) 96.4 H Lymph % (Auto) 1.0 L [place] % (Auto) 1.2 L Eos % (Auto) 0.0 Baso % (Auto) 0.6 Neut # (Auto) 17.2 H Lymph # (Auto) 0.2 L [place] # (Auto) 0.2 Eos # (Auto) 0.0 Baso # (Auto) 0.1 Total Counted 100 Immature Gran % 0.8 Nucleated RBC % 0.0 Immature Gran # 0.14 Segmented Neutrophils 95 H Band Neutrophils 4 Lymphocytes Monocytes 1 L Nucleated RBCs # 0.00 Platelet Estimate Normal [place] Cells Slight Morphology Comment ESR Westergren Absolute Retic Percent Retic Retic Hgb Equivalent INR PT Patient/Control Mix Circ Anticoag PTT ABG pH ABG pCO2 ABG pO2 ABG HCO3 ABG Total CO2 ABG O2 Saturation ABG Base Excess FiO2 Sodium 150 H Potassium 3.5 Chloride 117 H Carbon Dioxide 17 L Anion Gap 19.5 H BUN 45 H Creatinine 0.90 GFR Calculation 54 BUN/Creatinine Ratio 50.00 H Glucose 141 H POC Glucose Calculated Osmolality 311.0 H Lactic Acid 1.3 Calcium 7.8 L Magnesium 2.3 Ferritin Total Bilirubin 1.00 AST 15 ALT 11 L Alkaline Phosphatase 88 Ammonia Total Creatine Kinase CK-MB (CK-2) CK and CKMB Interp Troponin I Total Protein 4.5 L Albumin 1.8 L Globulin 2.7 Albumin/Globulin Ratio 0.6 L Triglycerides 102 Cholesterol 69 LDL Cholesterol 33.0 VLDL Cholesterol 20.4 HDL Cholesterol < 10 L Heart Disease Risk Ratio 6.90 TSH 3rd Generation Urine Color Urine Appearance Urine pH Ur Specific [place] Urine Protein Urine Glucose (UA) Urine Ketones Urine Blood Urine Nitrate Urine Bilirubin Urine Urobilinogen Urine Leukocytes Urine RBC Urine WBC Ur Culture Indicated? REYNA (IgG-AHG) REYNA, Polyspecific 11/10/16 11/10/16 11/10/16 04:14 05:49 09:39 WBC RBC Hgb Hct MCV MCH MCHC RDW Plt Count MPV Neut % (Auto) Lymph % (Auto) [place] % (Auto) Eos % (Auto) Baso % (Auto) Neut # (Auto) Lymph # (Auto) [place] # (Auto) Eos # (Auto) Baso # (Auto) Total Counted Immature Gran % Nucleated RBC % Immature Gran # Segmented Neutrophils Band Neutrophils Lymphocytes Monocytes Nucleated RBCs # Platelet Estimate Yariel Cells Morphology Comment ESR Westergren Absolute Retic Percent Retic Retic Hgb Equivalent INR PT Patient/Control Mix Circ Anticoag PTT ABG pH ABG pCO2 ABG pO2 ABG HCO3 ABG Total CO2 ABG O2 Saturation ABG Base Excess FiO2 Sodium Potassium Chloride Carbon Dioxide Anion Gap BUN Creatinine GFR Calculation BUN/Creatinine Ratio Glucose POC Glucose 145 H 131 H Calculated Osmolality Lactic Acid Calcium Magnesium Ferritin Total Bilirubin AST ALT Alkaline Phosphatase Ammonia Total Creatine Kinase CK-MB (CK-2) CK and CKMB Interp Troponin I Total Protein Albumin Globulin Albumin/Globulin Ratio Triglycerides Cholesterol LDL Cholesterol VLDL Cholesterol HDL Cholesterol Heart Disease Risk Ratio TSH 3rd Generation Urine Color Urine Appearance Urine pH Ur Specific [place] Urine Protein Urine Glucose (UA) Urine Ketones Urine Blood Urine Nitrate Urine Bilirubin Urine Urobilinogen Urine Leukocytes Urine RBC Urine WBC Ur Culture Indicated? REYNA (IgG-AHG) Negative REYNA, Polyspecific Negative 11/10/16 11/10/16 11/10/16 11:16 11:38 12:44 WBC RBC Hgb Hct MCV MCH MCHC RDW Plt Count MPV Neut % (Auto) Lymph % (Auto) [place] % (Auto) Eos % (Auto) Baso % (Auto) Neut # (Auto) Lymph # (Auto) [place] # (Auto) Eos # (Auto) Baso # (Auto) Total Counted Immature Gran % Nucleated RBC % Immature Gran # Segmented Neutrophils Band Neutrophils Lymphocytes Monocytes Nucleated RBCs # Platelet Estimate [place] Cells Morphology Comment ESR Westergren Absolute Retic Percent Retic Retic Hgb Equivalent INR PT Patient/Control Mix Circ Anticoag PTT ABG pH 7.359 ABG pCO2 23.3 L ABG pO2 89.0 ABG HCO3 15.9 L ABG Total CO2 11.8 L ABG O2 Saturation 96.6 ABG Base Excess -10.9 L FiO2 32.00 Sodium Potassium Chloride Carbon Dioxide Anion Gap BUN Creatinine GFR Calculation BUN/Creatinine Ratio Glucose POC Glucose 133 H Calculated Osmolality Lactic Acid Calcium Magnesium Ferritin 165.5 Total Bilirubin AST ALT Alkaline Phosphatase Ammonia Total Creatine Kinase CK-MB (CK-2) CK and CKMB Interp Troponin I Total Protein Albumin Globulin Albumin/Globulin Ratio Triglycerides Cholesterol LDL Cholesterol VLDL Cholesterol HDL Cholesterol Heart Disease Risk Ratio TSH 3rd Generation Urine Color Urine Appearance Urine pH Ur Specific [place] Urine Protein Urine Glucose (UA) Urine Ketones Urine Blood Urine Nitrate Urine Bilirubin Urine Urobilinogen Urine Leukocytes Urine RBC Urine WBC Ur Culture Indicated? REYNA (IgG-AHG) REYNA, Polyspecific 11/10/16 11/10/16 11/10/16 12:44 12:53 13:48 WBC RBC Hgb Hct MCV MCH MCHC RDW Plt Count MPV Neut % (Auto) Lymph % (Auto) [place] % (Auto) Eos % (Auto) Baso % (Auto) Neut # (Auto) Lymph # (Auto) [place] # (Auto) Eos # (Auto) Baso # (Auto) Total Counted Immature Gran % Nucleated RBC % Immature Gran # Segmented Neutrophils Band Neutrophils Lymphocytes Monocytes Nucleated RBCs # Platelet Estimate [place] Cells Morphology Comment ESR [place]gren Absolute Retic Percent Retic Retic Hgb Equivalent INR PT Patient/Control Mix Circ Anticoag PTT ABG pH ABG pCO2 ABG pO2 ABG HCO3 ABG Total CO2 ABG O2 Saturation ABG Base Excess FiO2 Sodium Potassium Chloride Carbon Dioxide Anion Gap BUN Creatinine GFR Calculation BUN/Creatinine Ratio Glucose POC Glucose Calculated Osmolality Lactic Acid Calcium Magnesium Ferritin Total Bilirubin AST ALT Alkaline Phosphatase Ammonia 12 Total Creatine Kinase 65 CK-MB (CK-2) 6.9 H CK and CKMB Interp 10.6 Troponin I 0.531 H Total Protein Albumin Globulin Albumin/Globulin Ratio Triglycerides Cholesterol LDL Cholesterol VLDL Cholesterol HDL Cholesterol Heart Disease Risk Ratio TSH 3rd Generation 2.030 Urine Color Yellow Urine Appearance Clear Urine pH 5.0 Ur Specific [place] 1.021 Urine Protein 30 Urine Glucose (UA) Negative Urine Ketones 5 Urine Blood Moderate Urine Nitrate Negative Urine Bilirubin Negative Urine Urobilinogen < 2.0 H Urine Leukocytes Negative Urine RBC 3 Urine WBC 3 Ur Culture Indicated? Not indicated REYNA (IgG-AHG) REYNA, Polyspecific 11/10/16 11/10/16 14:17 14:17 WBC 15.9 H RBC 3.58 L Hgb 10.3 L Hct 32.7 L MCV 91.3 MCH 29 MCHC 31.5 L RDW 17.3 Plt Count 182 MPV 11.2 Neut % (Auto) 96.0 H Lymph % (Auto) 1.9 L [place] % (Auto) 1.1 L Eos % (Auto) 0.0 Baso % (Auto) 0.2 Neut # (Auto) 15.2 H Lymph # (Auto) 0.3 L [place] # (Auto) 0.2 Eos # (Auto) 0.0 Baso # (Auto) 0.0 Total Counted 100 Immature Gran % 0.8 Nucleated RBC % 0.1 Immature Gran # 0.13 Segmented Neutrophils 94 H Band Neutrophils 3 Lymphocytes 3 L Monocytes Nucleated RBCs # 0.02 Platelet Estimate Adequate [place] Cells Few Morphology Comment ESR Westergren 114 H Absolute Retic 0.0 Percent Retic 0.7 Retic Hgb Equivalent 23.6 L INR 1.0 PT Patient/Control Mix 10.9 Circ Anticoag PTT 39.2 ABG pH ABG pCO2 ABG pO2 ABG HCO3 ABG Total CO2 ABG O2 Saturation ABG Base Excess FiO2 Sodium Potassium Chloride Carbon Dioxide Anion Gap BUN Creatinine GFR Calculation BUN/Creatinine Ratio Glucose POC Glucose Calculated Osmolality Lactic Acid Calcium Magnesium Ferritin Total Bilirubin AST ALT Alkaline Phosphatase Ammonia Total Creatine Kinase CK-MB (CK-2) CK and CKMB Interp Troponin I Total Protein Albumin Globulin Albumin/Globulin Ratio Triglycerides Cholesterol LDL Cholesterol VLDL Cholesterol HDL Cholesterol Heart Disease Risk Ratio TSH 3rd Generation Urine Color Urine Appearance Urine pH Ur Specific [place] Urine Protein Urine Glucose (UA) Urine Ketones Urine Blood Urine Nitrate Urine Bilirubin Urine Urobilinogen Urine Leukocytes Urine RBC Urine WBC Ur Culture Indicated? REYNA (IgG-AHG) REYNA, Polyspecific
[2016-11-10] MEDS: HEPARIN DRIP 25,000 UNITS/500 ML PREMIX IV SCH (13:37)
[2016-11-10 13:38] LABS: CKMB % 10.6 %
[2016-11-10 13:40] LABS: Troponin I Only 0.531 NG/ML (0.00-0.045)
[2016-11-10] MEDS ORDERED: AMIODARONE INJ 450 MG in DEXTROSE 5% 241 ML IV SCH (14:00)
[2016-11-10 14:05] LABS: Apearance,Urine CLEAR (Clear); Bilirubin,Urine Negative (Negative); Blood, Urine Moderate mg/dL (Negative); Glucose,Urine (UA) Negative (Negative); Ketones,Urine 5 mg/dL (Negative); Nitrite,Urine Negative (Negative); Protein,Urine 30 MG/DL; RBC,Urine 3 /HPF (0-4); Urine Color Yellow (Yellow); Urine Specific Gravity 1.021 (1.001-1.035); Urine Urobilinogen < 2.0 EU/DL (0.2-1.0); WBC,Urine 3 /HPF (0-6)
[2016-11-10 14:33] LABS: Basophils % 0.2 % (0.0-0.8); Hematocrit 32.7 VOL% (35.7-47.0); Hemoglobin 10.3 GM/DL (12.0-16.0); Immature Granulocytes % 0.8 %; Immature Granulocytes Absolute 0.13 #; Lymphocytes # 0.3 10*3/uL (1.4-4.0); Lymphocytes % 1.9 % (21.3-54.2); Mean Corpuscular HGB Conc 31.5 GM/DL (32-36); Mean Corpuscular Hemoglobin 29 PG (27-34); Mean Corpuscular Volume 91.3 FL (87-102); Mean Platelet Volume 11.2 FL (9.6-12.0); Monocytes # 0.2 10*3/uL (0.11-0.8); Monocytes % 1.1 % (1.7-12.7); NRBC # 0.02 10*3/uL; Neutrophils # 15.2 10*3/uL (1.4-7.4); Platelet Count 182 T/CUMM (130-400); Red Blood Count 3.58 MC/CUMM (3.8-5.5); Red Cell Distribution Width 17.3 % (9.3-17.3); White Blood Count 15.9 T/CUMM (4-12)
[2016-11-10 14:44] LABS: PT Patient Result 10.9 SECS; Partial Thromboplastin Time 39.2 SECS (0-40)
--- NOTE | 2016-11-10 14:57 | ECHO Report ---
Jacy Lake Exam Date: 11/10/2016 10:56 Referring Physician: Technologist: Kayla Mtz RDCS Age: 86 Ht (in): 61 Wt (lb): 131 Gender: F Exam Location: [facility] ([place]) Echo Indications: RLL pneumonia, Altered mental status, Shortness of breath, Essential (primary) hypertension, NIDDM, Lethargic, Respiratory distress, Leukocytosis BP: 127 / 72 HR: 176 Rhythm: Atrial fibrillation Technical Quality: Fair IMPRESSIONS Normal left ventricular cavity size. Mild left ventricular hypertrophy. Left ventricular ejection fraction is estimated at 65 %. The right ventricle is normal in size and function. Mild atrial enlargement in apical view (elongated RA). Mild atrial enlargement in apical view (elongated LA). Morphologically normal mitral valve. Mild mitral annular calcification. Mild-moderate mitral valve regurgitation. Aortic valve sclerosis without stenosis. Trace to mild aortic valve regurgitation. Morphologically normal tricuspid valve. Nyvjbhna-kb-fxkfao tricuspid valve regurgitation. Tricuspid regurgitation velocities suggest a PAP of 57 mmHg. Morphologically normal pulmonic valve without significant stenosis. There is no pulmonic regurgitation. Normal pericardium without effusion. Normal ascending aorta dimension. MEASUREMENTS (Male / Female) Normal Values 2D ECHO LV Diastolic Diameter PLAX 3.9 cm 4.2 - 5.9 / 3.9 - 5.3 cm LV Systolic Diameter PLAX 3.2 cm LV Fractional Shortening PLAX 19.6 % IVS Diastolic Thickness 1.1 cm 0.6 - 1.0 / 0.6 - 0.9 cm LVPW Diastolic Thickness 1.1 cm 0.6 - 1.0 / 0.6 - 0.9 cm RV Internal Dim ED PLAX 2.1 cm Aortic Root Diameter 3.0 cm LA Systolic Diameter LX 3.4 cm 3.0 - 4.0 / 2.7 - 3.8 cm DOPPLER TR Peak Velocity 341.0 cm/s TR Peak Gradient 46.5 mmHg FINDINGS Left Ventricle Normal left ventricular cavity size. Mild left ventricular hypertrophy. Left ventricular ejection fraction is estimated at 65 %. Right Ventricle The right ventricle is normal in size and function. Right Atrium Mild atrial enlargement in apical view (elongated RA). Left Atrium Mild atrial enlargement in apical view (elongated LA). Mitral Valve Morphologically normal mitral valve. Mild mitral annular calcification. Mild-moderate mitral valve regurgitation. Aortic Valve Aortic valve sclerosis without stenosis. Trace to mild aortic valve regurgitation. Tricuspid Valve Morphologically normal tricuspid valve. Kzlooetp-ux-ungsmx tricuspid valve regurgitation. Tricuspid regurgitation velocities suggest a PAP of 57 mmHg. Pulmonic Valve Morphologically normal pulmonic valve without significant stenosis. There is no pulmonic regurgitation. Pericardium Normal pericardium without effusion. Aorta Normal ascending aorta dimension. Benjamín Paulino MD (Electronically Signed) Final Date: 10 November 2016 14:57
[2016-11-10] MEDS: SODIUM CHLORIDE 23.4% CONC INJ 38.5 MEQ in STERILE WATER INJ 1,000 ML IV SCH (15:19)
--- NOTE | 2016-11-10 15:22 | XRay Report ---
XR chest 1V portable Indication: Confirm NG tube placement Comparison: Chest x-ray dated November 09, 2016 Technique: Single frontal view of the chest Findings: Continued cardiomegaly. Continued significant consolidation of the right mid and upper lung. Nonweighted enteric tube takes a serpentine course with distal tip directed superolaterally just below the level of the left diaphragm. Tube likely within a hiatal hernia . IMPRESSION: As above. PROCEDURE INTERPRETED AT [facility] DEPARTMENT OF RADIOLOGY Final Report Signed by: Dr Hernan Moreira
[2016-11-10 15:29] LABS: Band Neutrophils 3 % (0-10); Burr Cells Few; Lymphocytes 3 % (20-55); Segmented Neutrophils 94 % (50-85); Total Cells Counted 100
[2016-11-10 15:30] LABS: Platelet Estimate Adequate
--- NOTE | 2016-11-10 15:31 | EKG Report ---
Stationary ECG Study [facility] ER Test Date: 11/09/2016 2:24:44 PM Pat Name: CORDELL JAMES Department: Room: 111 Gender: F Last Trimmer: : [id number] Requested by: Fredrick Parry Order Number: [id number] Arlette MD: JACQUELIN ROLAND Intervals [place] Rate: 95 P: 999 MT: 0 QRS: 43 QRSD: 96 T: 80 QT: 325 QTc: 377 Interpretive Statements SINUS RHYTHM MINOR NON-SPECIFIC ST-T ABNORMALITIES Electronically Signed On 11-11-16 07:12:10 CDT by JACQUELIN ROLAND [email or web address]
[2016-11-10 15:37] LABS: Sedimentation Rate-Westergren 114 MM/HR (0-30)
--- NOTE | 2016-11-10 16:40 | Ultrasound Report ---
Bilateral carotid Doppler. Indication: Right-sided weakness. Grayscale, color-flow, and spectral analysis performed and interpreted. There is heavy calcific plaque present within each carotid bulb, and proximal internal carotid artery. Scattered areas of mixed plaque are seen within the external carotid arteries in the common carotid arteries. The right internal carotid artery peak systolic velocity is 82 cm/s, with an IC/CC ratio of 1.1. The left internal carotid artery peak systolic velocity is 212 cm/s, with an IC/CC ratio of 7.0. The right common carotid artery peak systolic velocity is 76 cm/s The left common carotid artery peak systolic velocity is 30 cm/s. It is possible that there is a degree of stenosis at the origin of the left common carotid artery. There is antegrade flow within each vertebral artery. Impression: Using NASCET criteria, findings consistent with less than 50% stenosis on the right, and greater than 70% stenosis on the left. Suggested possibility of stenosis at the origin of the left common carotid artery. A CTA or MRA of the neck is recommended with contrast. PROCEDURE INTERPRETED AT [facility] DEPARTMENT OF RADIOLOGY Final Report Signed by: Dr. Mulu Yoon
[2016-11-10 19:06] LABS: Folate 5.5 NG/ML (5.4-24.0); Vitamin B12 > 2000 PG/ML (211-911)
[2016-11-10] MEDS ORDERED: ETOMIDATE 20 MG/10 ML VIAL IV ONE (19:25)
[2016-11-10] MEDS ORDERED: VECURONIUM 10 MG VIAL IV ONE (19:25)
[2016-11-10] MEDS ORDERED: HEPARIN 5,000 UNIT/1 ML VIAL ONE (20:32)
[2016-11-10] MEDS: AMIODARONE INJ 450 MG in DEXTROSE 5% 241 ML IV SCH (20:45)
[2016-11-10] MEDS: HEPARIN 5,000 UNIT/1 ML VIAL IV PRN (20:46)
[2016-11-11] MEDS: methylPREDNISolone SOD SUC 40 MG/1 ML VIAL IV SCH ×4 (00:32→23:55)
[2016-11-11] MEDS: INSULIN LISPRO 100 UNIT/ML SUBCUT SCH ×5 (00:32→23:55)
[2016-11-11 01:25] LABS: PT Patient Result 10.7 SECS
[2016-11-11 01:36] LABS: Partial Thromboplastin Time 47.5 SECS (0-40)
[2016-11-11] MEDS: PIPERACILLIN/TAZOBACTAM 3,375 MG in SODIUM CHLORIDE 0.9% 100 ML IV SCH ×3 (02:28→20:05)
[2016-11-11 05:15] LABS: Basophils % 0.1 % (0.0-0.8); Hematocrit 35.2 VOL% (35.7-47.0); Hemoglobin 11.1 GM/DL (12.0-16.0); Immature Granulocytes Absolute 0.17 #; Lymphocytes # 0.4 10*3/uL (1.4-4.0); Lymphocytes % 2.7 % (21.3-54.2); Mean Corpuscular HGB Conc 31.5 GM/DL (32-36); Mean Corpuscular Hemoglobin 29 PG (27-34); Mean Platelet Volume 11.3 FL (9.6-12.0); Monocytes # 0.4 10*3/uL (0.11-0.8); Monocytes % 2.1 % (1.7-12.7); NRBC # 0.02 10*3/uL; Neutrophils # 15.3 10*3/uL (1.4-7.4); Neutrophils % 94.1 % (38.7-73.9); Platelet Count 194 T/CUMM (130-400); Red Blood Count 3.87 MC/CUMM (3.8-5.5); Red Cell Distribution Width 17.4 % (9.3-17.3); White Blood Count 16.3 T/CUMM (4-12)
[2016-11-11 05:27] LABS: PT Patient Result 10.6 SECS; Partial Thromboplastin Time 32.9 SECS (0-40)
[2016-11-11 05:40] LABS: Band Neutrophils 2 % (0-10); Burr Cells Slight; Elliptocytes Few; Hypochromasia Slight; Lymphocytes 4 % (20-55); Platelet Estimate Normal; Segmented Neutrophils 94 % (50-85); Total Cells Counted 100
[2016-11-11 05:43] LABS: Calcium 8.1 MG/DL (8.5-10.1); Magnesium 2.4 MG/DL (1.8-2.4); Osmolality,Calculated 309.1 MOS/KG (273-304); Potassium 3.6 MMOL/L (3.5-5.1)
[2016-11-11 05:48] LABS: Phosphorous 4.2 MG/DL (2.5-4.9); Prealbumin 4.2 MG/DL (20-40)
--- NOTE | 2016-11-11 08:34 | Vascular Surgery Consult Note ---
History of Present Illness Chief complaint: symptomatic left carotid stenosis History of present illness: Ms. Lake is a 86 year old female Ms. Lake is an 86-year-old woman previously healthy and active food was found at home lethargic on the floor has been admitted with a right lower lobe pneumonia but also developed apparent left brain CVA with aphasia or dysphagia and right upper extremity flaccidity. The initial CT scan to his initial CT scans have not revealed an obvious stroke and MRA of the brain was done yesterday that did not reveal any obvious abnormalities there but clinically she has never had a left brain CVA. Carotid ultrasound as indicated a significant left internal carotid artery stenosis and possibly stenosis in the origin of the left internal carotid arteries well. The patient also has apparently developed atrial fibrillation is being currently treated for that. On exam she is basically nonverbal but awake and alert it appears she has no use of the right arm is moving the right leg some point. At this point I think it would be appropriate to get an MRI to get a CT angiogram to best to find the aortic arch and carotids and determine if there is critical stenosis that should be addressed sometime in the future. Generally it is not recommended to operate on the carotid arteries in the face of a completed stroke. Also I have been somewhat dissatisfied with the accuracy of the MRA studies versus the CT angiograms and normal carotid arteriograms. I will order a CT angiogram as it appears her creatinine is normal. Home Medications Medication Instructions Recorded Confirmed Type Levothyroxine Tab [Synthroid Tab] 0.025 mg PO DAILY 11/09/16 11/09/16 History Lisinopril/Hydrochlorothiazide 1 tablet PO DAILY 11/09/16 11/09/16 History [Lisinopril-Hctz 10-12.5 mg Tab] Lovastatin 80 mg PO AC LUNCH 11/09/16 11/09/16 History Sertraline [Zoloft] 50 mg PO BEDTIME 11/09/16 11/09/16 History rOPINIRole [Requip] 0.5 mg PO BEDTIME 11/09/16 11/09/16 History tiZANidine [Zanaflex] 2 mg PO Q8HR PRN 11/09/16 11/09/16 History Allergies Allergy/AdvReac Type Severity Reaction Status Date / Time No Known Allergies Allergy Unverified 11/09/16 14:11 Medical,Surgical,& Family Hx - Medical History Cardio: History of: Hypertension Neurology: History of: Dementia Endocrine: History of: Diabetes Mellitus (NIDDM), Dyslipidemia, Thyroid Disorder Gastrointestinal: History of: Diverticulitis/ Diverticulosis, Ulcerative Colitis - Surgical History Neurologic Surgeries: Patient denies: Neurologic Surgery HEENT Surgeries: Surgical HX of: Eye Surgery (cataracts) Abdominal Surgeries: Surgical HX of: Cholecystectomy Reproductive Surgeries: Surgical HX of;: Hysterectomy Orthopedic Surgeries: Surgical HX of;: Orthopedic Surgery (shoulder repair) - Family History Family History: Reports;: Family Cancer (father colon, brother gastric), Family Heart Disease (siblings CABG, Mother IN, brother IN) Denies;: Additional Family History - Social History Smoking Status: Former smoker Exam - Constitutional Vitals: Period Temp Pulse Resp BP Sys/Aquino Pulse Ox Last 24 Hr 97.0 F-98.1 F 81-159 14-33 93-137/55-98 92-99 Results - Labs CBC & BMP: 11/11/16 04:30 11/11/16 04:30
--- NOTE | 2016-11-11 08:53 | Neurology Consult Note ---
History of Present Illness History of present illness: Patient is unable to provide me any history. History basically obtained from the chart. Ms. Lake is a 86-year-old white female patient was brought into the ED today via EMS from [facility]. Pt. was found lethargic on floor at home by granddaughter. Back to back to CT scan did not reveal any acute pathology the day she was brought into the hospital. She was found to have extremely low blood sugar as well. The patient was taken to [facility] for stabilization. At [facility] patient was found to be hypotensive and in afib with RLL pneumonia. She has not been able to swallow either. The patient was transferred here for further evaluation. Pt has been ill with a cough and cold for about a week. Home Medications Medication Instructions Recorded Confirmed Type Levothyroxine Tab [Synthroid Tab] 0.025 mg PO DAILY 11/09/16 11/09/16 History Lisinopril/Hydrochlorothiazide 1 tablet PO DAILY 11/09/16 11/09/16 History [Lisinopril-Hctz 10-12.5 mg Tab] Lovastatin 80 mg PO AC LUNCH 11/09/16 11/09/16 History Sertraline [Zoloft] 50 mg PO BEDTIME 11/09/16 11/09/16 History rOPINIRole [Requip] 0.5 mg PO BEDTIME 11/09/16 11/09/16 History tiZANidine [Zanaflex] 2 mg PO Q8HR PRN 11/09/16 11/09/16 History Allergies Allergy/AdvReac Type Severity Reaction Status Date / Time No Known Allergies Allergy Unverified 11/09/16 14:11 ROS unobtainable: due to mental status Medical,Surgical,& Family Hx - Medical History Cardio: History of: Hypertension Neurology: History of: Dementia Endocrine: History of: Diabetes Mellitus (NIDDM), Dyslipidemia, Thyroid Disorder Gastrointestinal: History of: Diverticulitis/ Diverticulosis, Ulcerative Colitis - Surgical History Neurologic Surgeries: Patient denies: Neurologic Surgery HEENT Surgeries: Surgical HX of: Eye Surgery (cataracts) Abdominal Surgeries: Surgical HX of: Cholecystectomy Reproductive Surgeries: Surgical HX of;: Hysterectomy Orthopedic Surgeries: Surgical HX of;: Orthopedic Surgery (shoulder repair) - Family History Family History: Reports;: Family Cancer (father colon, brother gastric), Family Heart Disease (siblings CABG, Mother PA, brother PA) Denies;: Additional Family History - Social History Smoking Status: Former smoker Exam - Constitutional Vitals: Period Temp Pulse Resp BP Sys/Aquino Pulse Ox Last 24 Hr 97.0 F-98.1 F 81-159 14-33 93-137/55-98 92-99 Exam: GENERAL: Patient is in no acute distress. NECK: Neck is supple. There is no JVD. No carotid bruits present. No thyroid masses. CVS: First and second heart sounds are normal. There is no S3 present. Regular rate and rhythm. RESPIRATORY: Lungs are clear to auscultation without any rales or rhonchi. ABDOMEN: Soft and non-tender. Bowel sounds are present. There is no hepatosplenomegaly. EXT: There is no palpable edema. Peripheral pulses are present. Skin: No rashes Central Nervous system: General: Alert, awake Speech: Non-fluent Comprehension: Fair Facial expressions: Normal Cranial Nerves: CN1/Olfactory: Normal CN II/ Optic: Normal, Visual Chatman right homonymous hemianopia. CN III, and : ROMANA & EOMI Motor: Bulk and Tone is normal. Strength in the right 1-2/5 Strength in the left 3-4/5 Sensory: Unreliable Reflexes: 1+ and symmetrical Cerebellar function: Not tested Toes: Equivocal Gait: Not tested Results - Labs CBC & BMP: 11/11/16 04:30 11/11/16 04:30 Assessment and Plan (1) Acute CVA (cerebrovascular accident) Status: Acute Assessment and plan: This is likely acute CVA in the left MCA distribution. Risk factors included atrial fibrillation as well as left ICA stenosis. Continue IV heparin. We will not pursue a carotid artery stenosis at this time and wait for few weeks Add Coumadin once she has feeding tube in place We will try to do MRI of the brain Consult TMR Current Visit: Yes (2) Carotid artery disease Status: Acute Assessment and plan: Cancel CTA Current Visit: Yes
--- NOTE | 2016-11-11 09:01 | Hospitalist Progress Note ---
Assessment and Plan (1) Altered mental status Status: Acute Assessment and plan: 11/10/2016 CT head x2- showed no acute changes. Patient is less conversive, her right UE is flaccid. Her WBC is up,no fever documented. Her sodium is higher at 150. 11/11/2016- She is scheduled for an MRI this am.Carotid dopplers showed findings consistent with less than 50% stenosis on the right,greater than 70% stenosis on the left, suggested possibility of stenosis at the origin of the left common carotid artery.Vascular Surgery has seen her and they have ordered a CT angiogram. Echo showed normal left ventricular cavity size, mild left ventricular hypertrophy. EF-65%. Neuro has seen-they think it is likely acute CVA in the left MCA distribution. Risk factors included atrial fibrillation as well as left ICA stenosis. Sodium level is slowly improving.Sputum culture grew gram positive cocci- microstrep Plan Follow CT angiogram, MRI brain Continue anticogulation Continue with Neuro's recommendations continue IV antibiotics t Current Visit: Yes (2) Hypernatremia Status: Acute Assessment and plan: slowly improving on sterile water, bmp in am Current Visit: Yes (3) Right upper lobe pneumonia Status: Acute Assessment and plan: Sputum grew gram positive cocci-microstrep. BC-negative so far plan continue with IV Zosyn. Current Visit: Yes (4) Acute respiratory distress Status: Acute Assessment and plan: continue with IV steroids, nebs treatment and IV antibiotics Current Visit: Yes (5) Right sided weakness Status: Acute Assessment and plan: This is likely acute CVA in the left MCA distribution. Risk factors included atrial fibrillation as well as left ICA stenosis. CT head x2-no active changes Carotid dopplers showed findings consistent with less than 50% stenosis on the right,greater than 70% stenosis on the left, suggested possibility of stenosis at the origin of the left common carotid artery.Vascular Surgery has seen her and they have ordered a CT angiogram. Echo showed normal left ventricular cavity size, mild left ventricular hypertrophy. EF-65%. Neurology and CT surgery are following-will not pursue a carotid artery stenosis at this time and wait for few weeks Failed swallowing study Plan Continue IV heparin. Start Coumadin Follow MR brain and CT angiogram of the neck For a dubboff tube placement today Continue PT/OT Continue other management. Current Visit: Yes (6) Atrial fibrillation with rapid ventricular response Status: Acute Assessment and plan: Appears to be new onset. Heart rate did not respond to IV Cardizem or digoxin. She was initiated on IV amiodarone infusion continue with Amiodarone and Heparin ggt Follow Cardiology's recommendations Commence Coumadin-Pharmacy to dose Current Visit: Yes (7) Septic shock Status: Acute Assessment and plan: -improving. Jaycob has been weaned off, BC-no growth so far. Sputum grew gram positive cocci- microstrep. Plan Continue with IV antibiotics, IVF Current Visit: Yes Hospitalist: Subjective Interval history: Patient went into A.Fib with RVR yesterday. Heart rate did not respond to IV Cardizem or digoxin. She was initiated on IV amiodarone infusion.She will going for an MRI today and we are trying to pass a dubboff tube as well for feeding. Exam - Constitutional Vitals: Period Temp Pulse Resp BP Sys/Aquino Pulse Ox Last 24 Hr 97.0 F-98.1 F 81-159 14-33 93-137/55-98 92-99 General appearance: no acute distress - Respiratory Respiratory exam: Present: clear to auscultation bilaterally - Cardiovascular Cardiovascular exam: Present: irregular rhythm - GI/Abdominal GI/Abdominal exam: Present: normal bowel sounds - Extremities Exam Extremities exam: Present: normal inspection - Neurological Exam Neurological exam: Present: alert, other (right sided weakness) Results - Labs CBC & BMP: 11/11/16 04:30 11/11/16 04:30 Lab Results: I have reviewed the past 24 hour labs
[2016-11-11] MEDS: ASPIRIN 300 MG SUPP RECTAL SCH (09:19)
[2016-11-11] MEDS: PANTOPRAZOLE 40 MG VIAL IV SCH (09:19)
[2016-11-11 10:17] LABS: Hemoglobin A1 (Alkaline) 97.5 % (96.5-98.5); Hemoglobin A2 (Alkaline) 2.5 % (1.5-3.5)
[2016-11-11] MEDS: HEPARIN 5,000 UNIT/1 ML VIAL IV PRN (10:21)
[2016-11-11] MEDS: HEPARIN DRIP 25,000 UNITS/500 ML PREMIX IV SCH ×2 (10:22→17:48)
[2016-11-11] MEDS: MORPHINE 2 MG/1 ML SYRINGE IV PRN ×3 (10:25→20:43)
[2016-11-11] MEDS: SODIUM CHLORIDE 23.4% CONC INJ 38.5 MEQ in STERILE WATER INJ 1,000 ML IV SCH (10:43)
[2016-11-11] MEDS: AMIODARONE INJ 450 MG in DEXTROSE 5% 241 ML IV SCH (14:01)
--- NOTE | 2016-11-11 16:20 | Magnetic Resonance Report ---
Referring physician: Randi Hagen MD Exam: MRI brain without contrast Date: November 11, 2016 Comparison: MRA head November 10, 2016, CT brain without contrast November 09, 2016 Reason: Right-sided weakness The patient is an inpatient who was admitted on November 09, 2016. Technique: MRI of the brain was performed without the use of contrast. Obtained images include sagittal T1, axial diffusion-weighted, axial FLAIR, axial T2, coronal T2, axial gradient and axial T1 sequences. Findings: There are scattered areas of diffusion restriction with corresponding T2/FLAIR hyperintensity at the posterior left frontal lobe, left parietal lobe and left parietal occipital region. This involves the cortex and subcortical white matter and is concerning for moderate to large acute infarction. This is mainly in a left MCA distribution, but a watershed type infarction could also be considered. There is mild generalized cerebral atrophy/volume loss. Multiple scattered areas of T2/FLAIR hyperintensity are seen within the cerebral white matter bilaterally and slightly within the poonam. This is nonspecific but likely represents prominent chronic microvascular ischemic change. Less likely considerations include a demyelinating process, vasculitis or viral process. No hydrocephalus or midline shift is present. There is no evidence of recent intracranial hemorrhage or an abnormal extra-axial fluid collection. Major vascular flow voids are visualized. There is a questionable small remote lacunar type infarction at the left cerebellum. The patient is likely status post cataract surgery. The orbits, sella and brainstem are otherwise unremarkable. The paranasal sinuses and mastoid air cells are clear. Impression: 1. Scattered areas of diffusion restriction are seen within the left cerebral hemisphere. This is concerning for a moderate to large acute infarction. It is mainly in a left MCA distribution, but a watershed type infarction should also be considered. 2. Mild generalized cerebral atrophy/volume loss and probable prominent chronic microvascular ischemic change. Findings were discussed with Dr. Hagen on November 11, 2016 at 4:15 PM. This is a critical test. PROCEDURE INTERPRETED AT [facility] DEPARTMENT OF RADIOLOGY Final Report Signed by: Dr. Toni Das
[2016-11-11] MEDS: WARFARIN 5 MG TABLET PO SCH (17:56)
--- NOTE | 2016-11-11 23:13 | Cardiology Progress Note ---
Jeremy Romero Vanessa, RN, am scribing for, and in the presence of, Tracey Ochoa MD 23:13. Assessment and Plan - Time spent with patient Time spent with patient: Greater than 30 minutes (1) Atrial fibrillation with rapid ventricular response Status: Acute Assessment and plan: Appears to be new onset. Heart rate did not respond to IV Cardizem or digoxin. She was initiated on IV amiodarone infusion yesterday, and today he is currently infusing at 0.5 mg/min per protocol. More controlled ventricular response today and pulse rate is 110 bpm. Currently anticoagulated with IV heparin drip. Echocardiogram 11/10/16 with mild LVH, LV ejection fraction 65%, moderate to severe TR with PA pressure 57 mmHg. Current Visit: Yes (2) Acute respiratory distress Status: Acute Current Visit: Yes (3) Altered mental status Status: Acute Assessment and plan: Urine and blood cultures with no growth at this time. Carotid Doppler ultrasound did reveal significant stenosis of the right ICA. MRA of head yesterday showed no evidence of and intracranial abnormality. MRI brain to be completed today. Neurology has been consulted, and they will evaluate also. Current Visit: Yes (4) Anemia Status: Acute Assessment and plan: Anemia panel is pending. Current Visit: Yes (5) Hypertension Status: Acute Assessment and plan: Blood pressure well controlled at this time antihypertensive medications have been held as she has been actually hypotensive on admission. Current Visit: Yes (6) Hypothyroidism Status: Chronic Assessment and plan: TSH level 2.03. Current Visit: Yes (7) Right sided weakness Status: Acute Current Visit: Yes (8) Right upper lobe pneumonia Status: Acute Assessment and plan: Agree with IV steroids and IV antibiotics and DuoNebs. Defer primary management to hospital medicine. Current Visit: Yes (9) Dyslipidemia Status: Chronic Assessment and plan: Will need to resume statin when able to. She is to have Keofeed tube placed later today in interventional radiology as there was difficulty attempting to place yesterday due to hiatal hernia that could not be bypassed. Current Visit: Yes Cardiology - PN: Subj Interval history: Close observation in ICU this morning. Patient is awake and does not appear to be in any acute distress. Atrial fib with more controlled ventricular response today, pulse rate is 110 bpm. She does have her verbal response, but also response to every question asked is "yes". Right-sided weakness is observed today also, but she does very weakly move right lower extremity. She does not track to the right with her eyes. Carotid Doppler ultrasound 11/10/16 reveals greater than 70% stenosis of the left ICA with a less than 50% stenosis of the right ICA. MRI of the brain to be obtained this morning. WBC 16,300, H&H is stable, sodium is 149, potassium is 3.6, and magnesium is 2.4. Exam (Progress Note) - Constitutional Vitals: Period Temp Pulse Resp BP Sys/Aquino Pulse Ox Last 24 Hr 97.0 F-98.1 F 81-159 14-33 93-137/55-98 92-99 Exam: General: Present: No acute distress, frail. Neck: Present: Supple Neck, Midline Trachea, No Masses Cardiac: Present: No Murmur, Tachycardia, Other. Absent: Gallop Lungs: Present: Bibasilar Rales, Scattered Rhonchi, Oxygen Neuro: Present: Other (Right upper extremity weakness) Abdomen: Present: Soft, Active Bowel Sounds, No Masses, Non-Tender. Absent: Tender, Firm Skin: Present: Clear. Absent: Rash, Suspicious Lesions, Ulceration Extremities: Present: No Clubbing, No Cyanosis, No Edema, Normal Upper Extr. Pulses, Normal Lower Extr. Pulses Result/EKG - Labs CBC & BMP: 11/11/16 04:30 11/11/16 04:30 Lab Results: I have reviewed the past 24 hour labs Labs: Laboratory Results - last 24 hr 11/10/16 11/10/16 11/10/16 04:14 09:39 11:16 WBC RBC Hgb Hct MCV MCH MCHC RDW Plt Count MPV Neut % (Auto) Lymph % (Auto) [place] % (Auto) Eos % (Auto) Baso % (Auto) Neut # (Auto) Lymph # (Auto) [place] # (Auto) Eos # (Auto) Baso # (Auto) Total Counted Immature Gran % Nucleated RBC % Immature Gran # Segmented Neutrophils Band Neutrophils Lymphocytes Nucleated RBCs # Platelet Estimate Hypochromasia [place] Cells Elliptocytes ESR [place]gren Absolute Retic Percent Retic Retic Hgb Equivalent INR PT Patient/Control Mix Circ Anticoag PTT ABG pH 7.359 ABG pCO2 23.3 L ABG pO2 89.0 ABG HCO3 15.9 L ABG Total CO2 11.8 L ABG O2 Saturation 96.6 ABG Base Excess -10.9 L FiO2 32.00 Sodium Potassium Chloride Carbon Dioxide Anion Gap BUN Creatinine GFR Calculation BUN/Creatinine Ratio Glucose POC Glucose 131 H Calculated Osmolality Calcium Phosphorus Magnesium Ferritin Ammonia Total Creatine Kinase CK-MB (CK-2) CK and CKMB Interp Troponin I Prealbumin Vitamin B12 Folate TSH 3rd Generation Urine Color Urine Appearance Urine pH Ur Specific [place] Urine Protein Urine Glucose (UA) Urine Ketones Urine Blood Urine Nitrate Urine Bilirubin Urine Urobilinogen Urine Leukocytes Urine RBC Urine WBC Ur Culture Indicated? REYNA (IgG-AHG) Negative REYNA, Polyspecific Negative 11/10/16 11/10/16 11/10/16 11:38 12:44 12:44 WBC RBC Hgb Hct MCV MCH MCHC RDW Plt Count MPV Neut % (Auto) Lymph % (Auto) [place] % (Auto) Eos % (Auto) Baso % (Auto) Neut # (Auto) Lymph # (Auto) [place] # (Auto) Eos # (Auto) Baso # (Auto) Total Counted Immature Gran % Nucleated RBC % Immature Gran # Segmented Neutrophils Band Neutrophils Lymphocytes Nucleated RBCs # Platelet Estimate Hypochromasia [place] Cells Elliptocytes ESR [place]gren Absolute Retic Percent Retic Retic Hgb Equivalent INR PT Patient/Control Mix Circ Anticoag PTT ABG pH ABG pCO2 ABG pO2 ABG HCO3 ABG Total CO2 ABG O2 Saturation ABG Base Excess FiO2 Sodium Potassium Chloride Carbon Dioxide Anion Gap BUN Creatinine GFR Calculation BUN/Creatinine Ratio Glucose POC Glucose 133 H Calculated Osmolality Calcium Phosphorus Magnesium Ferritin 165.5 Ammonia Total Creatine Kinase CK-MB (CK-2) CK and CKMB Interp Troponin I Prealbumin Vitamin B12 Folate TSH 3rd Generation 2.030 Urine Color Urine Appearance Urine pH Ur Specific [place] Urine Protein Urine Glucose (UA) Urine Ketones Urine Blood Urine Nitrate Urine Bilirubin Urine Urobilinogen Urine Leukocytes Urine RBC Urine WBC Ur Culture Indicated? REYNA (IgG-AHG) REYNA, Polyspecific 11/10/16 11/10/16 11/10/16 12:53 13:48 14:17 WBC 15.9 H RBC 3.58 L Hgb 10.3 L Hct 32.7 L MCV 91.3 MCH 29 MCHC 31.5 L RDW 17.3 Plt Count 182 MPV 11.2 Neut % (Auto) 96.0 H Lymph % (Auto) 1.9 L [place] % (Auto) 1.1 L Eos % (Auto) 0.0 Baso % (Auto) 0.2 Neut # (Auto) 15.2 H Lymph # (Auto) 0.3 L [place] # (Auto) 0.2 Eos # (Auto) 0.0 Baso # (Auto) 0.0 Total Counted 100 Immature Gran % 0.8 Nucleated RBC % 0.1 Immature Gran # 0.13 Segmented Neutrophils 94 H Band Neutrophils 3 Lymphocytes 3 L Nucleated RBCs # 0.02 Platelet Estimate Adequate Hypochromasia [place] Cells Few Elliptocytes ESR Westergren 114 H Absolute Retic 0.0 Percent Retic 0.7 Retic Hgb Equivalent 23.6 L INR PT Patient/Control Mix Circ Anticoag PTT ABG pH ABG pCO2 ABG pO2 ABG HCO3 ABG Total CO2 ABG O2 Saturation ABG Base Excess FiO2 Sodium Potassium Chloride Carbon Dioxide Anion Gap BUN Creatinine GFR Calculation BUN/Creatinine Ratio Glucose POC Glucose Calculated Osmolality Calcium Phosphorus Magnesium Ferritin Ammonia 12 Total Creatine Kinase 65 CK-MB (CK-2) 6.9 H CK and CKMB Interp 10.6 Troponin I 0.531 H Prealbumin Vitamin B12 Folate TSH 3rd Generation Urine Color Yellow Urine Appearance Clear Urine pH 5.0 Ur Specific [place] 1.021 Urine Protein 30 Urine Glucose (UA) Negative Urine Ketones 5 Urine Blood Moderate Urine Nitrate Negative Urine Bilirubin Negative Urine Urobilinogen < 2.0 H Urine Leukocytes Negative Urine RBC 3 Urine WBC 3 Ur Culture Indicated? Not indicated REYNA (IgG-AHG) REYNA, Polyspecific 11/10/16 11/10/16 11/10/16 14:17 14:17 17:55 WBC RBC Hgb Hct MCV MCH MCHC RDW Plt Count MPV Neut % (Auto) Lymph % (Auto) [place] % (Auto) Eos % (Auto) Baso % (Auto) Neut # (Auto) Lymph # (Auto) [place] # (Auto) Eos # (Auto) Baso # (Auto) Total Counted Immature Gran % Nucleated RBC % Immature Gran # Segmented Neutrophils Band Neutrophils Lymphocytes Nucleated RBCs # Platelet Estimate Hypochromasia [place] Cells Elliptocytes ESR [place]gren Absolute Retic Percent Retic Retic Hgb Equivalent INR 1.0 PT Patient/Control Mix 10.9 Circ Anticoag PTT 39.2 ABG pH ABG pCO2 ABG pO2 ABG HCO3 ABG Total CO2 ABG O2 Saturation ABG Base Excess FiO2 Sodium Potassium Chloride Carbon Dioxide Anion Gap BUN Creatinine GFR Calculation BUN/Creatinine Ratio Glucose POC Glucose 165 H Calculated Osmolality Calcium Phosphorus Magnesium Ferritin Ammonia Total Creatine Kinase CK-MB (CK-2) CK and CKMB Interp Troponin I Prealbumin Vitamin B12 > 2000 H Folate 5.5 TSH 3rd Generation Urine Color Urine Appearance Urine pH Ur Specific [place] Urine Protein Urine Glucose (UA) Urine Ketones Urine Blood Urine Nitrate Urine Bilirubin Urine Urobilinogen Urine Leukocytes Urine RBC Urine WBC Ur Culture Indicated? REYNA (IgG-AHG) REYNA, Polyspecific 11/10/16 11/11/16 11/11/16 19:58 00:06 01:00 WBC RBC Hgb Hct MCV MCH MCHC RDW Plt Count MPV Neut % (Auto) Lymph % (Auto) [place] % (Auto) Eos % (Auto) Baso % (Auto) Neut # (Auto) Lymph # (Auto) [place] # (Auto) Eos # (Auto) Baso # (Auto) Total Counted Immature Gran % Nucleated RBC % Immature Gran # Segmented Neutrophils Band Neutrophils Lymphocytes Nucleated RBCs # Platelet Estimate Hypochromasia [place] Cells Elliptocytes ESR W[place] Absolute Retic Percent Retic Retic Hgb Equivalent INR 1.0 PT Patient/Control Mix 10.7 Circ Anticoag PTT 25.2 D 47.5 H D ABG pH ABG pCO2 ABG pO2 ABG HCO3 ABG Total CO2 ABG O2 Saturation ABG Base Excess FiO2 Sodium Potassium Chloride Carbon Dioxide Anion Gap BUN Creatinine GFR Calculation BUN/Creatinine Ratio Glucose POC Glucose 174 H Calculated Osmolality Calcium Phosphorus Magnesium Ferritin Ammonia Total Creatine Kinase CK-MB (CK-2) CK and CKMB Interp Troponin I Prealbumin Vitamin B12 Folate TSH 3rd Generation Urine Color Urine Appearance Urine pH Ur Specific [place] Urine Protein Urine Glucose (UA) Urine Ketones Urine Blood Urine Nitrate Urine Bilirubin Urine Urobilinogen Urine Leukocytes Urine RBC Urine WBC Ur Culture Indicated? REYNA (IgG-AHG) REYNA, Polyspecific 11/11/16 11/11/16 11/11/16 04:30 04:30 04:30 WBC 16.3 H RBC 3.87 Hgb 11.1 L Hct 35.2 L MCV 91.0 MCH 29 MCHC 31.5 L RDW 17.4 H Plt Count 194 MPV 11.3 Neut % (Auto) 94.1 H Lymph % (Auto) 2.7 L [place] % (Auto) 2.1 Eos % (Auto) 0.0 Baso % (Auto) 0.1 Neut # (Auto) 15.3 H Lymph # (Auto) 0.4 L [place] # (Auto) 0.4 Eos # (Auto) 0.0 Baso # (Auto) 0.0 Total Counted 100 Immature Gran % 1.0 Nucleated RBC % 0.1 Immature Gran # 0.17 Segmented Neutrophils 94 H Band Neutrophils 2 Lymphocytes 4 L Nucleated RBCs # 0.02 Platelet Estimate Normal Hypochromasia Slight [place] Cells Slight Elliptocytes Few ESR Westergren Absolute Retic Percent Retic Retic Hgb Equivalent INR 1.0 PT Patient/Control Mix 10.6 Circ Anticoag PTT 32.9 D ABG pH ABG pCO2 ABG pO2 ABG HCO3 ABG Total CO2 ABG O2 Saturation ABG Base Excess FiO2 Sodium 149 H Potassium 3.6 Chloride 119 H Carbon Dioxide 16 L Anion Gap 17.6 H BUN 44 H Creatinine 0.90 GFR Calculation 54 BUN/Creatinine Ratio 48.00 H Glucose 156 H POC Glucose Calculated Osmolality 309.1 H Calcium 8.1 L Phosphorus Magnesium 2.4 Ferritin Ammonia Total Creatine Kinase CK-MB (CK-2) CK and CKMB Interp Troponin I Prealbumin Vitamin B12 Folate TSH 3rd Generation Urine Color Urine Appearance Urine pH Ur Specific [place] Urine Protein Urine Glucose (UA) Urine Ketones Urine Blood Urine Nitrate Urine Bilirubin Urine Urobilinogen Urine Leukocytes Urine RBC Urine WBC Ur Culture Indicated? REYNA (IgG-AHG) REYNA, Polyspecific 11/11/16 11/11/16 04:30 06:03 WBC RBC Hgb Hct MCV MCH MCHC RDW Plt Count MPV Neut % (Auto) Lymph % (Auto) [place] % (Auto) Eos % (Auto) Baso % (Auto) Neut # (Auto) Lymph # (Auto) [place] # (Auto) Eos # (Auto) Baso # (Auto) Total Counted Immature Gran % Nucleated RBC % Immature Gran # Segmented Neutrophils Band Neutrophils Lymphocytes Nucleated RBCs # Platelet Estimate Hypochromasia [place] Cells Elliptocytes ESR [place] Absolute Retic Percent Retic Retic Hgb Equivalent INR PT Patient/Control Mix Circ Anticoag PTT ABG pH ABG pCO2 ABG pO2 ABG HCO3 ABG Total CO2 ABG O2 Saturation ABG Base Excess FiO2 Sodium Potassium Chloride Carbon Dioxide Anion Gap BUN Creatinine GFR Calculation BUN/Creatinine Ratio Glucose POC Glucose 168 H Calculated Osmolality Calcium Phosphorus 4.2 Magnesium Ferritin Ammonia Total Creatine Kinase CK-MB (CK-2) CK and CKMB Interp Troponin I Prealbumin 4.2 L Vitamin B12 Folate TSH 3rd Generation Urine Color Urine Appearance Urine pH Ur Specific [place] Urine Protein Urine Glucose (UA) Urine Ketones Urine Blood Urine Nitrate Urine Bilirubin Urine Urobilinogen Urine Leukocytes Urine RBC Urine WBC Ur Culture Indicated? REYNA (IgG-AHG) REYNA, Polyspecific - EKG EKG results: interpreted by me EKG shows: atrial fibrillation (Pulse rate 110 bpm per) IDon Jennifer, MD, personally performed the services described in this documentation, ascribed by Elsy Luna RN in my presence, and it is both accurate and complete 313 .
[2016-11-12] MEDS: ALBUTEROL/IPRATROPIUM 3 ML NEB RESP TX PRN (01:12)
[2016-11-12] MEDS: PIPERACILLIN/TAZOBACTAM 3,375 MG in SODIUM CHLORIDE 0.9% 100 ML IV SCH ×3 (04:23→18:48)
[2016-11-12 05:47] LABS: Calcium 7.9 MG/DL (8.5-10.1); Osmolality,Calculated 298.8 MOS/KG (273-304); Potassium 3.6 MMOL/L (3.5-5.1)
[2016-11-12] MEDS: INSULIN LISPRO 100 UNIT/ML SUBCUT SCH ×3 (06:42→18:47)
[2016-11-12 06:59] LABS: Basophils % 0.1 % (0.0-0.8); Hematocrit 32.3 VOL% (35.7-47.0); Immature Granulocytes % 1.1 %; Immature Granulocytes Absolute 0.09 #; Lymphocytes # 0.4 10*3/uL (1.4-4.0); Lymphocytes % 4.5 % (21.3-54.2); Mean Corpuscular Hemoglobin 29 PG (27-34); Mean Corpuscular Volume 93.6 FL (87-102); Mean Platelet Volume 11.4 FL (9.6-12.0); Monocytes # 0.3 10*3/uL (0.11-0.8); Monocytes % 3.3 % (1.7-12.7); NRBC # 0.04 10*3/uL; Neutrophils # 7.5 10*3/uL (1.4-7.4); Platelet Count 171 T/CUMM (130-400); Red Blood Count 3.45 MC/CUMM (3.8-5.5); Red Cell Distribution Width 17.3 % (9.3-17.3); White Blood Count 8.3 T/CUMM (4-12)
[2016-11-12 07:18] LABS: Burr Cells Slight; Hypochromasia Slight; Lymphocytes 1 % (20-55); Nucleated Red Blood Cells 1 (0-5); Ovalocytes Slight; Platelet Estimate Normal; Polychromasia Slight; Segmented Neutrophils 96 % (50-85); Total Cells Counted 100
[2016-11-12] MEDS: SODIUM CHLORIDE 23.4% CONC INJ 38.5 MEQ in STERILE WATER INJ 1,000 ML IV SCH (07:47)
[2016-11-12] MEDS: AMIODARONE INJ 450 MG in DEXTROSE 5% 241 ML IV SCH ×3 (07:47→22:31)
--- NOTE | 2016-11-12 08:45 | Neurology Progress Note ---
Neurology - PN : Subjective Interval history: Ms. Lake seems to be doing better. He is more alert and awake and following commands in the left side. Some movement in the right leg but no movement in the right upper extremity. Swallowing better. Her chest x-ray reveals consolidation in the right lung and family is concerned about this mass. Will go ahead and order a CT of the chest. Exam (Progress Note) - Constitutional Vitals: Period Temp Pulse Resp BP Sys/Aquino Pulse Ox Last 24 Hr 96.5 F-97.8 F 88-117 17-26 97-140/56-97 93-100 Exam: GENERAL: Patient is in no acute distress. NECK: Neck is supple. There is no JVD. No carotid bruits present. No thyroid masses. CVS: First and second heart sounds are normal. There is no S3 present. Regular rate and rhythm. RESPIRATORY: Lungs are clear to auscultation without any rales or rhonchi. ABDOMEN: Soft and non-tender. Bowel sounds are present. There is no hepatosplenomegaly. EXT: There is no palpable edema. Peripheral pulses are present. Skin: No rashes Central Nervous system: General: Alert, awake Speech: Non-fluent Comprehension: Fair Facial expressions: Normal Cranial Nerves: CN1/Olfactory: Normal CN II/ Optic: Normal, Visual [place] right homonymous hemianopia. CN III, and : ROMANA & EOMI Motor: Bulk and Tone is normal. Strength in the right 1-2/5 Strength in the left 3-4/5 Sensory: Unreliable Reflexes: 1+ and symmetrical Cerebellar function: Not tested Toes: Equivocal Gait: Not tested Results - Labs CBC & BMP: 11/12/16 06:41 11/12/16 04:56 Assessment and Plan (1) Acute CVA (cerebrovascular accident) Status: Acute Assessment and plan: Left MCA acute CVA Continue IV heparin and Coumadin Check PT and INR periodically once Stable heart cano then will take her to rehab CT of the chest with and without Current Visit: Yes (2) Carotid artery disease Status: Acute Assessment and plan: Continue watchful observation Current Visit: Yes
[2016-11-12] MEDS: methylPREDNISolone SOD SUC 40 MG/1 ML VIAL IV SCH ×2 (08:52→16:01)
[2016-11-12] MEDS: ASPIRIN 300 MG SUPP RECTAL SCH (08:53)
[2016-11-12] MEDS: PANTOPRAZOLE 40 MG VIAL IV SCH (08:53)
--- NOTE | 2016-11-12 11:08 | Hospitalist Progress Note ---
Assessment and Plan (1) Altered mental status Status: Acute Assessment and plan: 11/10/2016 CT head x2- showed no acute changes. Patient is less conversive, her right UE is flaccid. Her WBC is up,no fever documented. Her sodium is higher at 150. 11/11/2016- She is scheduled for an MRI this am.Carotid dopplers showed findings consistent with less than 50% stenosis on the right,greater than 70% stenosis on the left, suggested possibility of stenosis at the origin of the left common carotid artery.Vascular Surgery has seen her and they have ordered a CT angiogram. Echo showed normal left ventricular cavity size, mild left ventricular hypertrophy. EF-65%. Neuro has seen-they think it is likely acute CVA in the left MCA distribution. Risk factors included atrial fibrillation as well as left ICA stenosis. Sodium level is slowly improving.Sputum culture grew gram positive cocci- microstrep 11/12/2016 Patient is more alert, oriented x3. MRI showed a moderate to large acute infarction mainly in the left MCA distribution, but a watershed type infarction should be considered. MRA- Limited exam without convincing evidence of significant intracranial arterial abnormalities Plan Continue with Neuro's recommendations continue IV antibiotics, IV Heparin and Coumadin PT/OT consult INR check t Current Visit: Yes (2) Hypernatremia Status: Acute Assessment and plan: improved, dc sterile water. Current Visit: Yes (3) Right upper lobe pneumonia Status: Acute Assessment and plan: Sputum grew gram positive cocci-microstrep. BC-negative so far plan continue with IV Zosyn. Current Visit: Yes (4) Acute respiratory distress Status: Acute Assessment and plan: Questionavle lung mass Plan Follow CT chest continue with IV steroids, nebs treatment and IV antibiotics Current Visit: Yes (5) Right sided weakness Status: Acute Assessment and plan: This is likely acute CVA in the left MCA distribution. Risk factors included atrial fibrillation as well as left ICA stenosis. CT head x2-no active changes Carotid dopplers showed findings consistent with less than 50% stenosis on the right,greater than 70% stenosis on the left, suggested possibility of stenosis at the origin of the left common carotid artery.Vascular Surgery has seen her and they have ordered a CT angiogram. Echo showed normal left ventricular cavity size, mild left ventricular hypertrophy. EF-65%. Neurology and CT surgery are following-will not pursue a carotid artery stenosis at this time and wait for few weeks 11/02/2016 Speech therapy re-evaluated patient and recommended a pureed diet. Patient is more alert and oriented x3. MRI showed a moderate to large acute infarction mainly in the left MCA distribution, but a watershed type infarction should be considered. MRA- Limited exam without convincing evidence of significant intracranial arterial abnormalities Plan Continue IV heparin and Coumadin Pharmacy consult Continue PT/OT Continue other management. Current Visit: Yes (6) Atrial fibrillation with rapid ventricular response Status: Acute Assessment and plan: Appears to be new onset. Heart rate did not respond to IV Cardizem or digoxin. She was initiated on IV amiodarone infusion continue with Amiodarone and Heparin ggt Follow Cardiology's recommendations, Pharm will dose Coumadin Current Visit: Yes (7) Septic shock Status: Acute Assessment and plan: -improving. [place]ob has been weaned off, BC-no growth so far. Sputum grew gram positive cocci- microstrep. Plan Continue with IV antibiotics, dc IVF Current Visit: Yes Hospitalist: Subjective Interval history: Patient seen this am, she was more alert, conversive, obeyed commands. Exam - Constitutional Vitals: Period Temp Pulse Resp BP Sys/Aquino Pulse Ox Last 24 Hr 96.5 F-97.8 F 88-117 17-26 97-140/56-87 93-100 General appearance: no acute distress - Respiratory Respiratory exam: Present: clear to auscultation bilaterally - Cardiovascular Cardiovascular exam: Present: regular rate and rhythm - GI/Abdominal GI/Abdominal exam: Present: normal bowel sounds - Extremities Exam Extremities exam: Present: other (right sided weakness UR>LE) - Neurological Exam Neurological exam: Present: alert, oriented X3, other (RUE flaccid) Results - Labs CBC & BMP: 11/12/16 06:41 11/12/16 04:56 Lab Results: I have reviewed the past 24 hour labs
--- NOTE | 2016-11-12 11:48 | CT Report ---
CT chest wo/w con Indication: Mass. CT CHEST WITH AND WITHOUT CONTRAST DLP: 546 mGy*cm. One or more of the following dose reduction techniques was used: Automated exposure control, adjustment of the mA and/or kV according the patient size, or use of iterative reconstruction techniques. Comparison: None Technique: Axial CT images of the chest were obtained before and after the IV administration of Omnipaque 350, 80 cc. Findings: Surrounding the right hilum is an 18 x 20 mm soft tissue mantle that may be inflammatory in nature, or may be a mass. It does not cause significant compression of the adjacent pulmonary arteries or airways. There is dense alveolar consolidation without volume loss involving the majority of the lateral and posterior right upper lobe. Air bronchograms are present and there are several cystic areas noted within this area of consolidation. The consolidation is such that underlying tumor cannot be excluded. There is an area of developing groundglass and reticular prominence within the anterior and central left upper lobe mostly around the periphery. However, this is nowhere near the degree of opacification of the process in the right lung. Both lower lobes demonstrate atelectasis, and tiny bilateral pleural effusions are present. Heart is minimally enlarged. Calcified atheromatous disease the aorta is significant in the aortic arch is elongated. No aneurysm or dissection of the aorta. No pathologic mediastinal, axillary or left hilar lymphadenopathy. There is a large hiatal hernia containing at least 80% of the stomach. In the upper abdomen, there is a subcapsular 15 mm hypodensity associated with the medial segment left liver lobe. Internal density is close to water, 15 Hounsfield units. This does not enhance appreciably. No other liver lesion identified. Mild intrahepatic duct prominence is noted. Upper abdomen is otherwise unremarkable. Impression: 1. Area of dense alveolar consolidation involving the right upper lobe with air bronchograms and several cystic changes concerning for developing cavities. No volume loss. Although tumor cannot be excluded, favor infectious etiology. 2. There is an area of faint alveolar density developing within the lateral left upper lobe and more central left upper lobe, also favoring infection. 3. Soft tissue mantle encasing the right hilum without narrowing the associated pulmonary arteries or airway. Mass versus reactive lymphadenopathy. 4. Bibasilar atelectasis and scarring. Tiny bilateral pleural effusions. 5. Mild cardiomegaly. 6. Calcified atheromatous disease. Elongation of the thoracic aorta. 7. Large hiatal hernia. 8. 15 mm hypodense lesion within the medial segment left liver lobe, likely a cyst. PROCEDURE INTERPRETED AT [facility] Final Report Signed by: Quintin Irene M.D.
[2016-11-12 12:04] LABS: INR 1.1; PT Patient Result 11.4 SECS
--- NOTE | 2016-11-12 13:50 | Cardiology Progress Note ---
Jeremy Romero Vanessa, RN, am scribing for, and in the presence of, Tracey Ochoa MD 13:49. Assessment and Plan - Time spent with patient Time spent with patient: Greater than 30 minutes (1) Atrial fibrillation with rapid ventricular response Status: Acute Assessment and plan: Appears to be new onset. Initially it seems that she was having some paroxysms normal sinus rhythm so we started amiodarone therapy in an attempt to rhythm control her, but she has remained in atrial fibrillation. Accordingly we will switch to trying to rate control her and stop the rhythm controlling attempts. She is on heparin, her hemoglobin has been stable. We will perform an anemia workup and if this is stable convert her IV to oral anticoagulants or Lovenox. Current Visit: Yes (2) Acute respiratory distress Status: Resolved Current Visit: Yes (3) Altered mental status Status: Acute Assessment and plan: This appears to be related to her stroke. Urine and blood cultures were negative. Sputum culture with gram-positive cocci. Carotid doppler US with significant stenosis of right ICA. Vascular surgery has evaluated patient, CTA to be obtained. MRA head (-) for acute process. MRI brain 11/11/16 with scattered areas of restriction within left cerebral hemisphere concerning for moderate to large acute infarct, mainly in a left MCA distribution. Neurology is also following patient. Current Visit: Yes (4) Anemia Status: Acute Assessment and plan: Anemia panel results reviewed. See discussion above. Current Visit: Yes (5) Hypertension Status: Acute Assessment and plan: Patient was actually hypotensive on presentation. Antihypertensives previously held. BP is increased now and SBP is 110-140 mm Hg. Adjust medication regimen. Current Visit: Yes (6) Hypothyroidism Status: Chronic Assessment and plan: TSH level 2.03. Current Visit: Yes (7) Right sided weakness Status: Acute Current Visit: Yes (8) Right upper lobe pneumonia Status: Acute Assessment and plan: Agree with IV steroids and IV antibiotics and DuoNebs. WBC noted to be improved today. Defer primary management to hospital medicine. Current Visit: Yes (9) Dyslipidemia Status: Chronic Assessment and plan: Resume statin when able Current Visit: Yes Cardiology - PN: Subj Interval history: Ms. Lake is resting quietly in bed this morning. Remains in ICU under close observation. Neuro status is unchanged from previous exam. Atrial fibrillation continues with overall controlled ventricular response, pulse rate no greater than 110 bpm. Hypotension has improved, and systolic BP averaging 110-140 mmHg. MRI brain yesterday with findings consistent for moderate to large infarct, left MCA distribution. Labs reviewed white blood cell improved and within acceptable range at 8300 today. H&H is stable. PTT is 41.6 sodium 144, potassium is 3.6 and creatinine remained stable at 0.8 with GFR of 62. Exam (Progress Note) - Constitutional Vitals: Period Temp Pulse Resp BP Sys/Aquino Pulse Ox Last 24 Hr 96.5 F-97.8 F 88-117 17-26 97-140/56-97 93-100 Exam: General: Present: No acute distress, frail. Neck: Present: Supple Neck, Midline Trachea, No Masses Cardiac: Present: No Murmur, Tachycardia, irregularly irregular, Other. Absent : Gallop Lungs: Present: Bibasilar Rales, Oxygen Neuro: Present: Other (Right upper extremity weakness), a face EF. Moving the other 3 extremities. Abdomen: Present: Soft, Active Bowel Sounds, No Masses, Non-Tender. Absent: Tender, Firm Skin: Present: Clear. Absent: Rash, Suspicious Lesions, Ulceration. Other ( bruising BUE's) Extremities: Present: No Clubbing, No Cyanosis, No Edema, Normal Upper Extr. Pulses, Normal Lower Extr. Pulses Result/EKG - Labs CBC & BMP: 11/12/16 06:41 11/12/16 04:56 Lab Results: I have reviewed the past 24 hour labs Labs: Laboratory Results - last 24 hr 11/10/16 11/10/16 11/11/16 14:17 14:17 07:52 WBC 15.9 H RBC 3.58 L Hgb 10.3 L Hct 32.7 L MCV 91.3 MCH 29 MCHC 31.5 L RDW 17.3 Plt Count 182 MPV 11.2 Neut % (Auto) 96.0 H Lymph % (Auto) 1.9 L [place] % (Auto) 1.1 L Eos % (Auto) 0.0 Baso % (Auto) 0.2 Neut # (Auto) 15.2 H Lymph # (Auto) 0.3 L [place] # (Auto) 0.2 Eos # (Auto) 0.0 Baso # (Auto) 0.0 Total Counted 100 Immature Gran % 0.8 Nucleated RBC % 0.1 Immature Gran # 0.13 Segmented Neutrophils 94 H Band Neutrophils 3 Lymphocytes 3 L Monocytes Nucleated RBCs Nucleated RBCs # 0.02 Anemia Panel Interp Platelet Estimate Adequate Polychromasia Hypochromasia Ovalocytes Yariel Cells Few Morphology Comment ESR Westergren 114 H Absolute Retic 0.0 Percent Retic 0.7 Retic Hgb Equivalent 23.6 L Hemoglobin A1 97.5 Hemoglobin A2 2.5 Hgb ELP Interp Circ Anticoag PTT 34.8 Sodium Potassium Chloride Carbon Dioxide Anion Gap BUN Creatinine GFR Calculation BUN/Creatinine Ratio Glucose POC Glucose Calculated Osmolality Calcium Vitamin B12 > 2000 H Folate 5.5 11/11/16 11/11/16 11/11/16 12:18 16:27 18:09 WBC RBC Hgb Hct MCV MCH MCHC RDW Plt Count MPV Neut % (Auto) Lymph % (Auto) [place] % (Auto) Eos % (Auto) Baso % (Auto) Neut # (Auto) Lymph # (Auto) [place] # (Auto) Eos # (Auto) Baso # (Auto) Total Counted Immature Gran % Nucleated RBC % Immature Gran # Segmented Neutrophils Band Neutrophils Lymphocytes Monocytes Nucleated RBCs Nucleated RBCs # Anemia Panel Interp Platelet Estimate Polychromasia Hypochromasia Ovalocytes Yariel Cells Morphology Comment ESR [place] Absolute Retic Percent Retic Retic Hgb Equivalent Hemoglobin A1 Hemoglobin A2 Hgb ELP Interp Circ Anticoag PTT 45.1 H D Sodium Potassium Chloride Carbon Dioxide Anion Gap BUN Creatinine GFR Calculation BUN/Creatinine Ratio Glucose POC Glucose 139 H 221 H Calculated Osmolality Calcium Vitamin B12 Folate 11/11/16 11/11/16 11/12/16 22:14 23:37 04:56 WBC RBC Hgb Hct MCV MCH MCHC RDW Plt Count MPV Neut % (Auto) Lymph % (Auto) [place] % (Auto) Eos % (Auto) Baso % (Auto) Neut # (Auto) Lymph # (Auto) [place] # (Auto) Eos # (Auto) Baso # (Auto) Total Counted Immature Gran % Nucleated RBC % Immature Gran # Segmented Neutrophils Band Neutrophils Lymphocytes Monocytes Nucleated RBCs Nucleated RBCs # Anemia Panel Interp Platelet Estimate Polychromasia Hypochromasia Ovalocytes Yariel Cells Morphology Comment ESR [place] Absolute Retic Percent Retic Retic Hgb Equivalent Hemoglobin A1 Hemoglobin A2 Hgb ELP Interp Circ Anticoag PTT 51.8 H Sodium 144 Potassium 3.6 Chloride 115 H Carbon Dioxide 16 L Anion Gap 16.6 H BUN 41 H Creatinine 0.80 GFR Calculation 62 BUN/Creatinine Ratio 51.00 H Glucose 158 H POC Glucose 236 H Calculated Osmolality 298.8 Calcium 7.9 L Vitamin B12 Folate 11/12/16 11/12/16 11/12/16 04:56 06:13 06:41 WBC 8.3 D RBC 3.45 L Hgb 10.0 L Hct 32.3 L MCV 93.6 MCH 29 MCHC 31.0 L RDW 17.3 Plt Count 171 MPV 11.4 Neut % (Auto) 91.0 H Lymph % (Auto) 4.5 L [place] % (Auto) 3.3 Eos % (Auto) 0.0 Baso % (Auto) 0.1 Neut # (Auto) 7.5 H Lymph # (Auto) 0.4 L [place] # (Auto) 0.3 Eos # (Auto) 0.0 Baso # (Auto) 0.0 Total Counted 100 Immature Gran % 1.1 Nucleated RBC % 0.5 Immature Gran # 0.09 Segmented Neutrophils 96 H Band Neutrophils Lymphocytes 1 L Monocytes 3 Nucleated RBCs 1 Nucleated RBCs # 0.04 Anemia Panel Interp Platelet Estimate Normal Polychromasia Slight Hypochromasia Slight Ovalocytes Slight Yariel Cells Slight Morphology Comment ESR [place] Absolute Retic Percent Retic Retic Hgb Equivalent Hemoglobin A1 Hemoglobin A2 Hgb ELP Interp Circ Anticoag PTT 41.6 H Sodium Potassium Chloride Carbon Dioxide Anion Gap BUN Creatinine GFR Calculation BUN/Creatinine Ratio Glucose POC Glucose 164 H Calculated Osmolality Calcium Vitamin B12 Folate - Diagnostic Findings Procedure: X-ray: report reviewed by me - EKG EKG results: interpreted by me, no acute changes EKG shows: atrial fibrillation I, Tracey Ochoa MD, personally performed the services described in this documentation, ascribed by Elsy Luna RN in my presence, and it is both accurate and complete 350 .
[2016-11-12] MEDS: HEPARIN DRIP 25,000 UNITS/500 ML PREMIX IV SCH ×2 (15:20→22:34)
[2016-11-12] MEDS: WARFARIN 5 MG TABLET PO SCH (18:47)
[2016-11-13] MEDS: methylPREDNISolone SOD SUC 40 MG/1 ML VIAL IV SCH ×3 (00:01→16:41)
[2016-11-13] MEDS: INSULIN LISPRO 100 UNIT/ML SUBCUT SCH ×4 (00:02→18:10)
[2016-11-13] MEDS: PIPERACILLIN/TAZOBACTAM 3,375 MG in SODIUM CHLORIDE 0.9% 100 ML IV SCH ×3 (02:27→18:05)
[2016-11-13 06:09] LABS: Hemoglobin 9.3 GM/DL (12.0-16.0); Immature Granulocytes % 1.3 %; Immature Granulocytes Absolute 0.08 #; Lymphocytes # 0.3 10*3/uL (1.4-4.0); Lymphocytes % 5.1 % (21.3-54.2); Mean Corpuscular Hemoglobin 28 PG (27-34); Mean Corpuscular Volume 90.9 FL (87-102); Mean Platelet Volume 11.3 FL (9.6-12.0); Monocytes # 0.2 10*3/uL (0.11-0.8); Monocytes % 2.7 % (1.7-12.7); NRBC # 0.02 10*3/uL; Neutrophils # 5.7 10*3/uL (1.4-7.4); Neutrophils % 90.9 % (38.7-73.9); Platelet Count 153 T/CUMM (130-400); White Blood Count 6.2 T/CUMM (4-12)
[2016-11-13 06:18] LABS: INR 1.4; PT Patient Result 14.7 SECS
--- NOTE | 2016-11-13 06:18 | Cardiology Progress Note ---
Assessment and Plan (1) Atrial fibrillation with rapid ventricular response Status: Acute Assessment and plan: Appears to be new onset. Initially it seems that she was having some paroxysms normal sinus rhythm so we started amiodarone therapy in an attempt to rhythm control her, but she has remained in atrial fibrillation. Accordingly we will switch to trying to rate control her and stop the rhythm controlling attempts. She is on heparin and warfarin, her hemoglobin has decreased slightly. We will perform an anemia workup and if this is stable convert her IV to oral anticoagulants or Lovenox. Current Visit: Yes (2) Acute CVA (cerebrovascular accident) Status: Acute Current Visit: Yes (3) Anemia Status: Acute Assessment and plan: We will check for iron deficiency and heme check her stools. Current Visit: Yes (4) Hypertension Status: Acute Assessment and plan: Patient was actually hypotensive on presentation. Antihypertensives previously held. BP is now improved and we will start her on IV Cardizem until she is able to take oral medications. Current Visit: Yes (5) Right sided weakness Status: Acute Current Visit: Yes (6) Right upper lobe pneumonia Status: Acute Assessment and plan: Defer primary management to hospital medicine. Current Visit: Yes (7) Dyslipidemia Status: Chronic Assessment and plan: Resume statin when able Current Visit: Yes (8) Carotid artery disease Status: Acute Current Visit: Yes (9) Altered mental status Status: Acute Assessment and plan: This appears to be related to her stroke. Urine and blood cultures were negative. Sputum culture with gram-positive cocci. Carotid doppler US with significant stenosis of right ICA. Vascular surgery has evaluated patient, CTA to be obtained. MRA head (-) for acute process. MRI brain 11/11/16 with scattered areas of restriction within left cerebral hemisphere concerning for moderate to large acute infarct, mainly in a left MCA distribution. Neurology is also following patient. Current Visit: Yes (10) Hypothyroidism Status: Chronic Current Visit: Yes Cardiology - PN: Subj Interval history: Overall evening was uneventful. The patient is a little more alert and is expressing herself better today. She still has no use of her right arm. Exam (Progress Note) - Constitutional Vitals: Period Temp Pulse Resp BP Sys/Aquino Pulse Ox Last 24 Hr 97 F-97.9 F 89-112 15-26 116-145/73-96 93-99 Exam: General appearance: normal weight, no acute distress - Head Head exam: Present: normal inspection, normocephalic, atraumatic. Absent: hematoma, laceration - Eye Eye exam: Present: EOMI. Absent: conjunctival injection, nystagmus, periorbital swelling, scleral icterus, laceration to eyelids Pupils: Present: PERRL. Absent: constricted, dilated, fixed, irregular, unequal - ENT ENT exam: Present: normal exam, normal external ear exam - Neck Neck exam: Present: normal inspection. Absent: lymphadenopathy, meningismus, tenderness, thyromegaly - Respiratory Respiratory exam: Present: clear to auscultation bilaterally. Absent: accessory muscle use, chest wall tenderness - Cardiovascular Cardiovascular exam: Present: Irregularly irregular rate and rhythm. Absent: carotid bruit, gallop, JVD, rubs - GI/Abdominal GI/Abdominal exam: Present: normal bowel sounds, soft. Absent: distended, firm , guarding, hernia, mass, tenderness, rebound. - Extremities Exam Extremities exam: Present: normal inspection, normal capillary refill. Absent: calf tenderness, edema - Back Exam Back exam: Present: normal inspection. Absent: muscle spasm, vertebral tenderness - Neurological Exam Neurological exam: Present: She is unable to move her right upper extremity, cannot even wiggle her fingers. She is able to use her other 3 extremities without impairment. She is expressing herself more today than she has been and is more alert. - Psychiatric Psychiatric exam: Present: normal affect, normal mood - Skin Skin exam: Present: normal color, warm, dry, intact. Absent: cyanosis, diaphoretic, rash, urticaria Result/EKG - Labs CBC & BMP: 11/13/16 05:49 11/12/16 04:56 Lab Results: I have reviewed the past 24 hour labs Labs: Laboratory Results - last 24 hr 11/12/16 11/12/16 11/12/16 06:13 06:41 10:29 WBC 8.3 D RBC 3.45 L Hgb 10.0 L Hct 32.3 L MCV 93.6 MCH 29 MCHC 31.0 L RDW 17.3 Plt Count 171 MPV 11.4 Neut % (Auto) 91.0 H Lymph % (Auto) 4.5 L [place] % (Auto) 3.3 Eos % (Auto) 0.0 Baso % (Auto) 0.1 Neut # (Auto) 7.5 H Lymph # (Auto) 0.4 L [place] # (Auto) 0.3 Eos # (Auto) 0.0 Baso # (Auto) 0.0 Total Counted 100 Immature Gran % 1.1 Nucleated RBC % 0.5 Immature Gran # 0.09 Segmented Neutrophils 96 H Lymphocytes 1 L Monocytes 3 Nucleated RBCs 1 Nucleated RBCs # 0.04 Platelet Estimate Normal Polychromasia Slight Hypochromasia Slight Ovalocytes Slight [place] Cells Slight Morphology Comment INR PT Patient/Control Mix Circ Anticoag PTT 46.7 H POC Glucose 164 H 11/12/16 11/12/16 11/12/16 10:33 11:38 17:51 WBC RBC Hgb Hct MCV MCH MCHC RDW Plt Count MPV Neut % (Auto) Lymph % (Auto) [place] % (Auto) Eos % (Auto) Baso % (Auto) Neut # (Auto) Lymph # (Auto) [place] # (Auto) Eos # (Auto) Baso # (Auto) Total Counted Immature Gran % Nucleated RBC % Immature Gran # Segmented Neutrophils Lymphocytes Monocytes Nucleated RBCs Nucleated RBCs # Platelet Estimate Polychromasia Hypochromasia Ovalocytes [place] Cells Morphology Comment INR 1.1 PT Patient/Control Mix 11.4 Circ Anticoag PTT 24.2 D POC Glucose 143 H 11/12/16 11/12/16 11/13/16 18:17 23:26 00:51 WBC RBC Hgb Hct MCV MCH MCHC RDW Plt Count MPV Neut % (Auto) Lymph % (Auto) [place] % (Auto) Eos % (Auto) Baso % (Auto) Neut # (Auto) Lymph # (Auto) [place] # (Auto) Eos # (Auto) Baso # (Auto) Total Counted Immature Gran % Nucleated RBC % Immature Gran # Segmented Neutrophils Lymphocytes Monocytes Nucleated RBCs Nucleated RBCs # Platelet Estimate Polychromasia Hypochromasia Ovalocytes Yariel Cells Morphology Comment INR PT Patient/Control Mix Circ Anticoag PTT 47.6 H D POC Glucose 285 H 161 H 11/13/16 11/13/16 05:26 05:49 WBC 6.2 RBC 3.30 L Hgb 9.3 L Hct 30.0 L MCV 90.9 MCH 28 MCHC 31.0 L RDW 17.0 Plt Count 153 MPV 11.3 Neut % (Auto) 90.9 H Lymph % (Auto) 5.1 L [place] % (Auto) 2.7 Eos % (Auto) 0.0 Baso % (Auto) 0.0 Neut # (Auto) 5.7 Lymph # (Auto) 0.3 L [place] # (Auto) 0.2 Eos # (Auto) 0.0 Baso # (Auto) 0.0 Total Counted Immature Gran % 1.3 Nucleated RBC % 0.3 Immature Gran # 0.08 Segmented Neutrophils Lymphocytes Monocytes Nucleated RBCs Nucleated RBCs # 0.02 Platelet Estimate Polychromasia Hypochromasia Ovalocytes [place] Cells Morphology Comment INR PT Patient/Control Mix Circ Anticoag PTT POC Glucose 145 H
[2016-11-13 06:20] LABS: INR 1.4; PT Patient Result 14.7 SECS
[2016-11-13 06:36] LABS: Calcium 7.7 MG/DL (8.5-10.1); Magnesium 2.2 MG/DL (1.8-2.4); Osmolality,Calculated 295.8 MOS/KG (273-304); Potassium 3.5 MMOL/L (3.5-5.1)
[2016-11-13] MEDS: DILTIAZEM INJ 100 MG in SODIUM CHLORIDE 0.9% 100 ML IV SCH ×2 (06:44→22:33)
[2016-11-13 07:41] LABS: % Iron Saturation 19.6 % (18-50)
[2016-11-13 07:42] LABS: Hypochromasia 1+; Lymphocytes 3 % (20-55); Platelet Estimate Adequate; Segmented Neutrophils 95 % (50-85); Total Cells Counted 100
--- NOTE | 2016-11-13 09:05 | Hospitalist Progress Note ---
Assessment and Plan (1) Altered mental status Status: Acute Assessment and plan: 11/10/2016 CT head x2- showed no acute changes. Patient is less conversive, her right UE is flaccid. Her WBC is up,no fever documented. Her sodium is higher at 150. 11/11/2016- She is scheduled for an MRI this am.Carotid dopplers showed findings consistent with less than 50% stenosis on the right,greater than 70% stenosis on the left, suggested possibility of stenosis at the origin of the left common carotid artery.Vascular Surgery has seen her and they have ordered a CT angiogram. Echo showed normal left ventricular cavity size, mild left ventricular hypertrophy. EF-65%. Neuro has seen-they think it is likely acute CVA in the left MCA distribution. Risk factors included atrial fibrillation as well as left ICA stenosis. Sodium level is slowly improving.Sputum culture grew gram positive cocci- microstrep 11/12/2016 Patient is more alert, oriented x3. MRI showed a moderate to large acute infarction mainly in the left MCA distribution, but a watershed type infarction should be considered. MRA- Limited exam without convincing evidence of significant intracranial arterial abnormalities 11/13/2016 Patient is talking and obeying commands but has no use of the right upper extremity Plan Continue with Neuro's recommendations continue IV antibiotics, IV Heparin and Coumadin continue PT/OT consult INR check t Current Visit: Yes (2) Hypernatremia Status: Acute Assessment and plan: improved, dc sterile water. Current Visit: Yes (3) Right upper lobe pneumonia Status: Acute Assessment and plan: Sputum grew gram positive cocci-microstrep. BC-negative so far plan continue with IV Zosyn. Current Visit: Yes (4) Acute respiratory distress Status: Resolved Assessment and plan: improving. Plan continue with IV steroids, nebs treatment and IV antibiotics Current Visit: Yes (5) Right sided weakness Status: Acute Assessment and plan: This is likely acute CVA in the left MCA distribution. Risk factors included atrial fibrillation as well as left ICA stenosis. CT head x2-no active changes Carotid dopplers showed findings consistent with less than 50% stenosis on the right,greater than 70% stenosis on the left, suggested possibility of stenosis at the origin of the left common carotid artery.Vascular Surgery has seen her and they have ordered a CT angiogram. Echo showed normal left ventricular cavity size, mild left ventricular hypertrophy. EF-65%. Neurology and CT surgery are following-will not pursue a carotid artery stenosis at this time and wait for few weeks 11/11/2016 Speech therapy re-evaluated patient and recommended a pureed diet. Patient is more alert and oriented x3. MRI showed a moderate to large acute infarction mainly in the left MCA distribution, but a watershed type infarction should be considered. MRA- Limited exam without convincing evidence of significant intracranial arterial abnormalities 11/13/2016 Patient is talking and obeying commands. She has no use of the right upper extremity yet. Plan Continue IV heparin and Coumadin Pharmacy consult Continue PT/OT Continue other management and Follow Neuro's recommendations Current Visit: Yes (6) Atrial fibrillation with rapid ventricular response Status: Acute Assessment and plan: Patient is currently on Cardizem ggt and Heparin ggt. Coumadin has been initiated. Continue to follow Cardiology's recommendations. Current Visit: Yes (7) Septic shock Status: Acute Assessment and plan: -improving. Jaycob has been weaned off, BC-no growth so far. Sputum grew gram positive cocci- microstrep. Plan Continue with IV antibiotics, Current Visit: Yes (8) Lung mass Status: Acute Assessment and plan: Family members requested for a CT chest because they've been told in the past that patient has a mass. They would like to know what the mass was so they can plan if necessary end of life issues. CT chset showed area of dense consolidation involving the right upper lobe with air bronchograms and several cystic changes concerning for developing cavities.Area of faint alveolar density developing with in the lateral upper lobe and more central left lobe favouring infection. Soft tissue mantle encasing the right hilium without narrowing the associated pulmonary arteries or airway. Bibasilar atelectasis, scarring and tiny bilateral pleural effusions. Plan continue IV antibiotics consult Pulmonary Current Visit: Yes Hospitalist: Subjective Interval history: Patient was seen this am, awake, talking and answering all asked questions appropriately. Family members requested for a CT chest because they've been told in the past that patient has a mass. They would like to know what the mass was so they can plan if necessary end of life issues. CT chset showed area of dense consolidation involving the right upper lobe with air bronchograms and several cystic changes concerning for developing cavities.Area of faint alveolar density developing with in the lateral upper lobe and more central left lobe favouring infection. Soft tissue mantle encasing the right hilium without narrowing the associated pulmonary arteries or airway. Bibasilar atelectasis, scarring and tiny bilateral pleural effusions. Exam - Constitutional Vitals: Period Temp Pulse Resp BP Sys/Aquino Pulse Ox Last 24 Hr 97.2 F-97.9 F 89-112 15-26 116-145/68-96 93-99 General appearance: no acute distress - Respiratory Respiratory exam: Present: clear to auscultation bilaterally - Cardiovascular Cardiovascular exam: Present: regular rate and rhythm - GI/Abdominal GI/Abdominal exam: Present: normal bowel sounds - Extremities Exam Extremities exam: Present: normal inspection - Neurological Exam Neurological exam: Present: alert, oriented X3 Results - Labs CBC & BMP: 11/13/16 05:49 11/13/16 05:49 Lab Results: I have reviewed the past 24 hour labs
[2016-11-13] MEDS: ASPIRIN 300 MG SUPP RECTAL SCH (09:11)
[2016-11-13] MEDS: PANTOPRAZOLE 40 MG VIAL IV SCH (09:21)
--- NOTE | 2016-11-13 09:40 | Pulmonology Consult Note ---
Assessment and Plan (1) Right upper lobe pneumonia Status: Acute Assessment and plan: Patient looks like she has right upper lobe pneumonia. I do not see definite obstruction. We will continue with antibiotics for now. She may need a bronchoscope later. Current Visit: Yes (2) Atrial fibrillation with rapid ventricular response Status: Acute Assessment and plan: Her heart rate is under better control. Current Visit: Yes (3) Hypertension Status: Acute Assessment and plan: Her blood pressure is better now. Current Visit: Yes (4) Acute CVA (cerebrovascular accident) Status: Acute Assessment and plan: She has had a CVA and is on heparin infusion. She does have right-sided weakness. Current Visit: Yes History of Present Illness Chief complaint: Right upper lobe infiltrate History of present illness: Ms. Lake is a 86 year old white female that was admitted several days ago with altered mental status and has been found to have a CVA. She has a weakness of her right arm. She is in atrial fibrillation and is now on a heparin drip. She has been found to have a right upper lobe consolidation also. She is not having any respiratory distress at present. She does look extremely debilitated however. Home Medications Medication Instructions Recorded Confirmed Type Levothyroxine Tab [Synthroid Tab] 0.025 mg PO DAILY 11/09/16 11/09/16 History Lisinopril/Hydrochlorothiazide 1 tablet PO DAILY 11/09/16 11/09/16 History [Lisinopril-Hctz 10-12.5 mg Tab] Lovastatin 80 mg PO AC LUNCH 11/09/16 11/09/16 History Sertraline [Zoloft] 50 mg PO BEDTIME 11/09/16 11/09/16 History rOPINIRole [Requip] 0.5 mg PO BEDTIME 11/09/16 11/09/16 History tiZANidine [Zanaflex] 2 mg PO Q8HR PRN 11/09/16 11/09/16 History Allergies Allergy/AdvReac Type Severity Reaction Status Date / Time No Known Allergies Allergy Unverified 11/09/16 14:11 ROS unobtainable: due to mental status (She says she feels okay but is unable to give much history at all.) Exam (Pulmonay) H&P - Constitutional Vitals: Period Temp Pulse Resp BP Sys/Aquino Pulse Ox Last 24 Hr 97.2 F-97.9 F 89-112 15-26 116-145/68-96 93-99 General appearance: normal weight, other (She does look somewhat chronically ill ) - Head Head exam: Present: normal inspection, normocephalic - Eye Eye exam: Present: EOMI. Absent: scleral icterus Pupils: Present: ROMANA - ENT ENT exam: Present: normal exam - Neck Neck exam: Present: normal inspection. Absent: lymphadenopathy, thyromegaly - Respiratory Respiratory exam: Present: rales, rhonchi, other (She has fairly good breath sounds bilaterally.) - Cardiovascular Cardiovascular exam: Present: irregular rhythm. Absent: gallop, systolic murmur , tachycardia - GI/Abdominal GI/Abdominal exam: Present: normal bowel sounds, soft. Absent: organomegaly, tenderness - Extremities Exam Extremities exam: Absent: calf tenderness, edema - Neurological Exam Neurological exam: Present: altered (She will answer questions but gets confused easily), other (She is unable to move her right arm very well at all) - Psychiatric Psychiatric exam: Absent: anxious - Skin Skin exam: Present: warm, dry Medical,Surgical,& Family Hx - Medical History Cardio: History of: Hypertension Neurology: History of: Dementia Endocrine: History of: Diabetes Mellitus (NIDDM), Dyslipidemia, Thyroid Disorder Gastrointestinal: History of: Diverticulitis/ Diverticulosis, Ulcerative Colitis - Surgical History Neurologic Surgeries: Patient denies: Neurologic Surgery HEENT Surgeries: Surgical HX of: Eye Surgery (cataracts) Abdominal Surgeries: Surgical HX of: Cholecystectomy Reproductive Surgeries: Surgical HX of;: Hysterectomy Orthopedic Surgeries: Surgical HX of;: Orthopedic Surgery (shoulder repair) - Family History Family History: Reports;: Family Cancer (father colon, brother gastric), Family Heart Disease (siblings CABG, Mother [place], brother [place]) Denies;: Additional Family History - Social History Smoking Status: Former smoker Results - Labs CBC & BMP: 11/13/16 05:49 11/13/16 05:49 - Diagnostic Findings Procedure: Chest x-ray: image reviewed by me, report reviewed by me (Chest x- ray shows right upper lobe consolidation), CT - chest: image reviewed by me, report reviewed by me (CT does not show a definite mass)
[2016-11-13] MEDS: WARFARIN 5 MG TABLET PO SCH (18:04)
[2016-11-13] MEDS: ALBUTEROL/IPRATROPIUM 3 ML NEB RESP TX PRN (22:57)
[2016-11-14] MEDS: INSULIN LISPRO 100 UNIT/ML SUBCUT SCH ×4 (00:08→18:30)
[2016-11-14] MEDS: methylPREDNISolone SOD SUC 40 MG/1 ML VIAL IV SCH ×3 (00:19→15:47)
[2016-11-14] MEDS: HEPARIN DRIP 25,000 UNITS/500 ML PREMIX IV SCH (00:57)
[2016-11-14] MEDS: PIPERACILLIN/TAZOBACTAM 3,375 MG in SODIUM CHLORIDE 0.9% 100 ML IV SCH ×3 (03:12→18:11)
[2016-11-14 05:34] LABS: Hematocrit 29.7 VOL% (35.7-47.0); Hemoglobin 9.7 GM/DL (12.0-16.0); Immature Granulocytes % 1.5 %; Immature Granulocytes Absolute 0.09 #; Lymphocytes # 0.3 10*3/uL (1.4-4.0); Lymphocytes % 4.4 % (21.3-54.2); Mean Corpuscular HGB Conc 32.7 GM/DL (32-36); Mean Corpuscular Hemoglobin 29 PG (27-34); Mean Corpuscular Volume 88.1 FL (87-102); Mean Platelet Volume 11.5 FL (9.6-12.0); Monocytes # 0.1 10*3/uL (0.11-0.8); Monocytes % 2.2 % (1.7-12.7); Neutrophils # 5.4 10*3/uL (1.4-7.4); Neutrophils % 91.9 % (38.7-73.9); Platelet Count 172 T/CUMM (130-400); Red Blood Count 3.37 MC/CUMM (3.8-5.5); Red Cell Distribution Width 16.7 % (9.3-17.3); White Blood Count 5.9 T/CUMM (4-12)
[2016-11-14 05:55] LABS: INR 2.1
[2016-11-14 05:58] LABS: PT Patient Result 22.9 SECS
[2016-11-14 06:16] LABS: Calcium 7.8 MG/DL (8.5-10.1); Osmolality,Calculated 290.1 MOS/KG (273-304); Potassium 3.1 MMOL/L (3.5-5.1)
[2016-11-14 06:21] LABS: Magnesium 2.2 MG/DL (1.8-2.4); Osmolality,Calculated 289.1 MOS/KG (273-304); Potassium 3.1 MMOL/L (3.5-5.1)
[2016-11-14] MEDS: DILTIAZEM INJ 100 MG in SODIUM CHLORIDE 0.9% 100 ML IV SCH ×2 (06:22→09:13)
--- NOTE | 2016-11-14 06:59 | Pulmonology Progress Note ---
Pulmonary - PN: Subj Interval history: Patient is an 86-year-old white lady that came in with atrial fibrillation and had a CVA. The patient is on a heparin infusion. She has right-sided weakness. She has a significant consolidated right upper lobe pneumonia. She has pneumococcus growing her cultures. She is getting IV antibiotics. She does not appear to be in any significant respiratory distress at present. Her fever is down and she looks reasonably comfortable. Exam (Progress Note) - Constitutional Vitals: Period Temp Pulse Resp BP Sys/Aquino Pulse Ox Last 24 Hr 97.2 F-97.7 F 79-111 11-29 104-143/60-96 92-100 Exam: General appearance: normal weight, other (She does look somewhat chronically ill , she is resting comfortably.) - Head Head exam: Present: normal inspection, normocephalic - Eye Eye exam: Present: EOMI. Absent: scleral icterus Pupils: Present: ROMANA - ENT ENT exam: Present: normal exam - Neck Neck exam: Present: normal inspection. Absent: lymphadenopathy, thyromegaly - Respiratory Respiratory exam: Present: She has good breath sounds bilaterally is moving air well. She has mild rhonchi and crackles in the right upper lung field. - Cardiovascular Cardiovascular exam: Present: irregular rhythm. Absent: gallop, systolic murmur , tachycardia - GI/Abdominal GI/Abdominal exam: Present: normal bowel sounds, soft. Absent: organomegaly, tenderness - Extremities Exam Extremities exam: Absent: calf tenderness, edema - Neurological Exam Neurological exam: Present: altered (She will answer questions but gets confused easily), other (She is unable to move her right arm very well at all) - Psychiatric Psychiatric exam: Absent: anxious - Skin Skin exam: Present: warm, dry Results - Labs CBC & BMP: 11/14/16 05:27 11/14/16 05:27 Assessment and Plan (1) Right upper lobe pneumonia Status: Acute Assessment and plan: Patient looks like she has right upper lobe pneumonia. She is growing pneumococcus out of her sputum and this is certainly consistent with a pneumococcal pneumonia. She is tolerating antibiotics well and she does not appear toxic. Current Visit: Yes Qualifiers: Pneumonia type: due to Pneumococcus Qualified Code(s): J13 - Pneumonia due to Streptococcus pneumoniae (2) Atrial fibrillation with rapid ventricular response Status: Acute Assessment and plan: Her heart rate is under better control. Current Visit: Yes (3) Hypertension Status: Acute Assessment and plan: Her blood pressure is better now. Current Visit: Yes (4) Acute CVA (cerebrovascular accident) Status: Acute Assessment and plan: She has had a CVA and is on heparin infusion. She does have right-sided weakness. She is resting comfortably at present. Current Visit: Yes
[2016-11-14 07:39] LABS: Band Neutrophils 1 % (0-10); Hypochromasia Slight; Lymphocytes 2 % (20-55); Platelet Estimate Adequate; Segmented Neutrophils 94 % (50-85); Total Cells Counted 100
[2016-11-14] MEDS: PANTOPRAZOLE 40 MG VIAL IV SCH (09:43)
[2016-11-14] MEDS: ASPIRIN 300 MG SUPP RECTAL SCH (09:48)
--- NOTE | 2016-11-14 11:12 | Hospitalist Progress Note ---
Assessment and Plan (1) Altered mental status Status: Acute Assessment and plan: 11/10/2016 CT head x2- showed no acute changes. Patient is less conversive, her right UE is flaccid. Her WBC is up,no fever documented. Her sodium is higher at 150. 11/11/2016- She is scheduled for an MRI this am.Carotid dopplers showed findings consistent with less than 50% stenosis on the right,greater than 70% stenosis on the left, suggested possibility of stenosis at the origin of the left common carotid artery.Vascular Surgery has seen her and they have ordered a CT angiogram. Echo showed normal left ventricular cavity size, mild left ventricular hypertrophy. EF-65%. Neuro has seen-they think it is likely acute CVA in the left MCA distribution. Risk factors included atrial fibrillation as well as left ICA stenosis. Sodium level is slowly improving.Sputum culture grew gram positive cocci- microstrep 11/12/2016 Patient is more alert, oriented x3. MRI showed a moderate to large acute infarction mainly in the left MCA distribution, but a watershed type infarction should be considered. MRA- Limited exam without convincing evidence of significant intracranial arterial abnormalities 11/13/2016 Patient is talking and obeying commands but has no use of the right upper extremity 11/14/2016 Patient is talking, obeying commands. Plan Continue with Neuro's recommendations continue IV antibiotics, DC IV Heparin Continue Coumadin-Pharmacy is dosing continue PT/OT consult INR check t Current Visit: Yes (2) Hypernatremia Status: Acute Assessment and plan: improved Current Visit: Yes (3) Right upper lobe pneumonia Status: Acute Assessment and plan: Sputum grew Strep pneumoniae. BC-negative so far plan continue with IV Zosyn. Current Visit: Yes Qualifiers: Pneumonia type: due to Pneumococcus Qualified Code(s): J13 - Pneumonia due to Streptococcus pneumoniae (4) Acute respiratory distress Status: Resolved Assessment and plan: improving. Plan continue with IV steroids, nebs treatment and IV antibiotics Current Visit: Yes (5) Right sided weakness Status: Acute Assessment and plan: This is likely acute CVA in the left MCA distribution. Risk factors included atrial fibrillation as well as left ICA stenosis. CT head x2-no active changes Carotid dopplers showed findings consistent with less than 50% stenosis on the right,greater than 70% stenosis on the left, suggested possibility of stenosis at the origin of the left common carotid artery.Vascular Surgery has seen her and they have ordered a CT angiogram. Echo showed normal left ventricular cavity size, mild left ventricular hypertrophy. EF-65%. Neurology and CT surgery are following-will not pursue a carotid artery stenosis at this time and wait for few weeks 11/11/2016 Speech therapy re-evaluated patient and recommended a pureed diet. Patient is more alert and oriented x3. MRI showed a moderate to large acute infarction mainly in the left MCA distribution, but a watershed type infarction should be considered. MRA- Limited exam without convincing evidence of significant intracranial arterial abnormalities 11/13/2016 Patient is talking and obeying commands. She has no use of the right upper extremity yet. 11/14/2016 RUE weakness RLE-slowly improving Plan Continue anticoagulation Continue PT/OT Continue other management and Follow Neuro's recommendations Current Visit: Yes (6) Atrial fibrillation with rapid ventricular response Status: Acute Assessment and plan: Patient is currently on Cardizem ggt, INR is therapeutic Plan DC heparin ggt Continue to follow Cardiology's recommendations. Current Visit: Yes (7) Septic shock Status: Acute Assessment and plan: -improved Sputm grew Strep pneumoniae. Plan See treatment plan above Current Visit: Yes (8) Lung mass Status: Acute Assessment and plan: Family members requested for a CT chest because they've been told in the past that patient has a mass. They want to know details about the mass so they can plan if necessary end of life issues. CT chest showed area of dense consolidation involving the right upper lobe with air bronchograms and several cystic changes concerning for developing cavities.Area of faint alveolar density developing with in the lateral upper lobe and more central left lobe favouring infection. Soft tissue mantle encasing the right hilium without narrowing the associated pulmonary arteries or airway. Bibasilar atelectasis, scarring and tiny bilateral pleural effusions. 11/14/2016 Pulm has seen. They do not see definite obstruction. She may need a bronchoscope later. Plan continue IV antibiotics Appreciates Pulm's input Current Visit: Yes (9) Hypokalemia Status: Acute Assessment and plan: will replete, bmp in am Current Visit: Yes Hospitalist: Subjective Interval history: Patient was alert, obeyed all commands but still had no use of her right arm. Her INR is therapeutic so Heparin ggt has been held.Sputum culture grew Strep pneumoniae. Exam - Constitutional Vitals: Period Temp Pulse Resp BP Sys/Aquino Pulse Ox Last 24 Hr 97.2 F-97.7 F 77-111 11-29 104-142/60-96 92-100 General appearance: no acute distress - Head Head exam: Present: normal inspection - Respiratory Respiratory exam: Present: clear to auscultation bilaterally - Cardiovascular Cardiovascular exam: Present: irregular rhythm - GI/Abdominal GI/Abdominal exam: Present: normal bowel sounds - Extremities Exam Extremities exam: Present: other (right sided weakness UE>LE) - Neurological Exam Neurological exam: Present: alert, oriented X3 - Psychiatric Psychiatric exam: Present: normal affect Results - Labs CBC & BMP: 11/14/16 05:27 11/14/16 05:27 Lab Results: I have reviewed the past 24 hour labs
--- NOTE | 2016-11-14 12:21 | Cardiology Progress Note ---
Assessment and Plan (1) Atrial fibrillation with rapid ventricular response Status: Acute Assessment and plan: Appears to be new onset. Initially it seems that she was having some paroxysms normal sinus rhythm so we started amiodarone therapy in an attempt to rhythm control her, but she has remained in atrial fibrillation. Accordingly we changed our strategy to rate control. Current Visit: Yes (2) Acute CVA (cerebrovascular accident) Status: Acute Current Visit: Yes (3) Anemia Status: Acute Assessment and plan: H&H are stable Current Visit: Yes (4) Hypertension Status: Acute Assessment and plan: Hemodynamics are stable Current Visit: Yes (5) Right sided weakness Status: Acute Current Visit: Yes (6) Right upper lobe pneumonia Status: Acute Assessment and plan: Defer primary management to hospital medicine. Current Visit: Yes Qualifiers: Pneumonia type: due to Pneumococcus Qualified Code(s): J13 - Pneumonia due to Streptococcus pneumoniae (7) Dyslipidemia Status: Chronic Assessment and plan: Resume statin when able Current Visit: Yes (8) Carotid artery disease Status: Acute Current Visit: Yes (9) Altered mental status Status: Acute Assessment and plan: This appears to be related to her stroke. Urine and blood cultures were negative. Sputum culture with gram-positive cocci. Carotid doppler US with significant stenosis of right ICA. Vascular surgery has evaluated patient, CTA to be obtained. MRA head (-) for acute process. MRI brain 11/11/16 with scattered areas of restriction within left cerebral hemisphere concerning for moderate to large acute infarct, mainly in a left MCA distribution. Neurology is also following patient. Current Visit: Yes (10) Hypothyroidism Status: Chronic Assessment and plan: TSH level 2.03. Current Visit: Yes Cardiology - PN: Subj Interval history: This patient was admitted to the hospital with mental status changes, stroke, atrial fibrillation. She also now appears to have a pneumonia. Overall evening was uneventful. She continues to have some expressive aphasia although she is using more words than previously. She continues to not have use of her right arm. She denies chest pain or shortness of breath. She is still on a Cardizem drip, her INR is now therapeutic. We we will convert her to oral medications. Exam (Progress Note) - Constitutional Vitals: Period Temp Pulse Resp BP Sys/Aquino Pulse Ox Last 24 Hr 97.2 F-97.7 F 77-111 11-29 104-142/60-96 92-100 Exam: General appearance: normal weight, no acute distress - Head Head exam: Present: normal inspection, normocephalic, atraumatic. Absent: hematoma, laceration - Eye Eye exam: Present: EOMI. Absent: conjunctival injection, nystagmus, periorbital swelling, scleral icterus, laceration to eyelids Pupils: Present: PERRL. Absent: constricted, dilated, fixed, irregular, unequal - ENT ENT exam: Present: normal exam, normal external ear exam - Neck Neck exam: Present: normal inspection. Absent: lymphadenopathy, meningismus, tenderness, thyromegaly - Respiratory Respiratory exam: Present: clear to auscultation bilaterally. Absent: accessory muscle use, chest wall tenderness - Cardiovascular Cardiovascular exam: Present: Irregularly irregular rate and rhythm. Absent: carotid bruit, gallop, JVD, rubs - GI/Abdominal GI/Abdominal exam: Present: normal bowel sounds, soft. Absent: distended, firm , guarding, hernia, mass, tenderness, rebound. - Extremities Exam Extremities exam: Present: Mild edema of the right upper extremity, ecchymosis throughout both upper extremities, normal capillary refill. Absent: calf tenderness - Back Exam Back exam: Present: normal inspection. Absent: muscle spasm, vertebral tenderness - Neurological Exam Neurological exam: Present: She is unable to move her right upper extremity, cannot even wiggle her fingers. She is able to use her other 3 extremities without impairment. She is expressing herself more today than she has been and is more alert but has a persistent expressive aphasia. - Psychiatric Psychiatric exam: Present: normal affect, normal mood - Skin Skin exam: Present: normal color, warm, dry, intact. Absent: cyanosis, diaphoretic, rash, urticaria Result/EKG - Labs CBC & BMP: 11/14/16 05:27 11/14/16 05:27 Lab Results: I have reviewed the past 24 hour labs Labs: Laboratory Results - last 24 hr 11/13/16 11/13/16 11/13/16 12:12 18:06 18:11 WBC RBC Hgb Hct MCV MCH MCHC RDW Plt Count MPV Neut % (Auto) Lymph % (Auto) [place] % (Auto) Eos % (Auto) Baso % (Auto) Neut # (Auto) Lymph # (Auto) [place] # (Auto) Eos # (Auto) Baso # (Auto) Total Counted Immature Gran % Nucleated RBC % Immature Gran # Segmented Neutrophils Band Neutrophils Lymphocytes Monocytes Nucleated RBCs # Platelet Estimate Hypochromasia INR PT Patient/Control Mix Circ Anticoag PTT 49.9 H 57.8 H Sodium Potassium Chloride Carbon Dioxide Anion Gap BUN Creatinine GFR Calculation BUN/Creatinine Ratio Glucose POC Glucose 161 H Calculated Osmolality Calcium Magnesium 11/13/16 11/14/16 11/14/16 23:29 00:13 05:27 WBC RBC Hgb Hct MCV MCH MCHC RDW Plt Count MPV Neut % (Auto) Lymph % (Auto) [place] % (Auto) Eos % (Auto) Baso % (Auto) Neut # (Auto) Lymph # (Auto) [place] # (Auto) Eos # (Auto) Baso # (Auto) Total Counted Immature Gran % Nucleated RBC % Immature Gran # Segmented Neutrophils Band Neutrophils Lymphocytes Monocytes Nucleated RBCs # Platelet Estimate Hypochromasia INR 2.1 PT Patient/Control Mix 22.9 D Circ Anticoag PTT 54.6 H Sodium Potassium Chloride Carbon Dioxide Anion Gap BUN Creatinine GFR Calculation BUN/Creatinine Ratio Glucose POC Glucose 165 H Calculated Osmolality Calcium Magnesium 11/14/16 11/14/16 11/14/16 05:27 05:27 05:27 WBC 5.9 RBC 3.37 L Hgb 9.7 L Hct 29.7 L MCV 88.1 MCH 29 MCHC 32.7 RDW 16.7 Plt Count 172 MPV 11.5 Neut % (Auto) 91.9 H Lymph % (Auto) 4.4 L [place] % (Auto) 2.2 Eos % (Auto) 0.0 Baso % (Auto) 0.0 Neut # (Auto) 5.4 Lymph # (Auto) 0.3 L [place] # (Auto) 0.1 L Eos # (Auto) 0.0 Baso # (Auto) 0.0 Total Counted 100 Immature Gran % 1.5 Nucleated RBC % 0.0 Immature Gran # 0.09 Segmented Neutrophils 94 H Band Neutrophils 1 Lymphocytes 2 L Monocytes 3 Nucleated RBCs # 0.00 Platelet Estimate Adequate Hypochromasia Slight INR PT Patient/Control Mix Circ Anticoag PTT Sodium 142 142 Potassium 3.1 L 3.1 L Chloride 111 H 109 H Carbon Dioxide 19 L 20 L Anion Gap 15.1 H 16.1 H BUN 23 H 24 H Creatinine 0.50 L 0.50 L GFR Calculation 84 84 BUN/Creatinine Ratio 46.00 H 48.00 H Glucose 154 H 171 H POC Glucose Calculated Osmolality 289.1 290.1 Calcium 7.0 L 7.8 L Magnesium 2.2 11/14/16 11/14/16 05:30 05:33 WBC RBC Hgb Hct MCV MCH MCHC RDW Plt Count MPV Neut % (Auto) Lymph % (Auto) [place] % (Auto) Eos % (Auto) Baso % (Auto) Neut # (Auto) Lymph # (Auto) [place] # (Auto) Eos # (Auto) Baso # (Auto) Total Counted Immature Gran % Nucleated RBC % Immature Gran # Segmented Neutrophils Band Neutrophils Lymphocytes Monocytes Nucleated RBCs # Platelet Estimate Hypochromasia INR PT Patient/Control Mix Circ Anticoag PTT 44.1 H Sodium Potassium Chloride Carbon Dioxide Anion Gap BUN Creatinine GFR Calculation BUN/Creatinine Ratio Glucose POC Glucose 178 H Calculated Osmolality Calcium Magnesium
[2016-11-14] MEDS: POTASSIUM CHLORIDE 20 MEQ/15 ML UDCUP PO SCH (13:01)
[2016-11-14] MEDS: DILTIAZEM 30 MG TABLET PO SCH ×2 (15:46→21:41)
[2016-11-14] MEDS: MORPHINE 2 MG/1 ML SYRINGE IV PRN (20:03)
[2016-11-15] MEDS: INSULIN LISPRO 100 UNIT/ML SUBCUT SCH ×4 (01:03→17:54)
[2016-11-15] MEDS: methylPREDNISolone SOD SUC 40 MG/1 ML VIAL IV SCH ×3 (01:29→15:58)
[2016-11-15] MEDS: PIPERACILLIN/TAZOBACTAM 3,375 MG in SODIUM CHLORIDE 0.9% 100 ML IV SCH ×4 (03:09→21:54)
[2016-11-15 05:24] LABS: Hemoglobin 9.5 GM/DL (12.0-16.0); Immature Granulocytes % 1.8 %; Lymphocytes # 0.2 10*3/uL (1.4-4.0); Lymphocytes % 4.3 % (21.3-54.2); Mean Corpuscular HGB Conc 32.8 GM/DL (32-36); Mean Corpuscular Hemoglobin 28 PG (27-34); Mean Corpuscular Volume 86.8 FL (87-102); Mean Platelet Volume 11.3 FL (9.6-12.0); Monocytes # 0.1 10*3/uL (0.11-0.8); Neutrophils # 5.1 10*3/uL (1.4-7.4); Neutrophils % 91.9 % (38.7-73.9); Platelet Count 215 T/CUMM (130-400); Red Blood Count 3.34 MC/CUMM (3.8-5.5); Red Cell Distribution Width 16.6 % (9.3-17.3); White Blood Count 5.5 T/CUMM (4-12)
[2016-11-15 05:41] LABS: INR 2.7
[2016-11-15 05:56] LABS: Hypochromasia 1+; Lymphocytes 3 % (20-55); Ovalocytes Slight; Platelet Estimate Normal; Segmented Neutrophils 95 % (50-85); Total Cells Counted 100
[2016-11-15 06:07] LABS: Calcium 7.5 MG/DL (8.5-10.1); Magnesium 2.2 MG/DL (1.8-2.4); Osmolality,Calculated 291.8 MOS/KG (273-304); Potassium 3.7 MMOL/L (3.5-5.1)
--- NOTE | 2016-11-15 07:57 | Cardiology Progress Note ---
Assessment and Plan (1) Atrial fibrillation with rapid ventricular response Status: Acute Assessment and plan: 86-year-old female, presenting with acute MCA CVA, carotid artery stenosis, episode of A. fib/RVR, anemia, pneumonia. Mildly elevated cardiac biomarkers, without significant ischemic EKG changes or arrhythmia. -A. fib. Now back in sinus rhythm. If recurs, amiodarone is an option. I would pursue intensive rate/rhythm control, the heart rate was significantly elevated in AF. -Elevated cardiac biomarkers. Doubt ACS. Ejection fraction preserved. Switch aspirin to p.o. I would hold off statin, LDL 30, frail pt. Stop Cardizem. Start metoprolol 25 mg twice daily, increase dose as tolerated by blood pressure. -Anticoagulation. Coumadin was held yesterday. Unless there are neurological contraindications, continue Coumadin, follow INR daily, goal 2-3. -RIGO. Was seen by vascular surgery. Current Visit: Yes (2) RLL pneumonia Status: Acute Current Visit: Yes (3) Hypertension Status: Acute Current Visit: Yes (4) Hypothyroidism Status: Chronic Current Visit: Yes (5) Anemia Status: Acute Current Visit: Yes (6) Acute CVA (cerebrovascular accident) Status: Acute Current Visit: Yes (7) Carotid artery disease Status: Acute Current Visit: Yes (8) Lung mass Status: Acute Current Visit: Yes Cardiology - PN: Subj Interval history: She is still quite dysarthric. Responding with single words. Converted back to sinus rhythm. Blood pressure is normal. Exam (Progress Note) - Constitutional Vitals: Period Temp Pulse Resp BP Sys/Aquino Pulse Ox Last 24 Hr 97.3 F-98.7 F 63-107 16-30 111-151/62-94 91-100 General appearance: normal weight - Head Head exam: Present: normal inspection - Eye Eye exam: Absent: conjunctival injection Pupils: Absent: dilated - ENT ENT exam: Present: normal external ear exam - Neck Neck exam: Present: normal inspection - Respiratory Respiratory exam: Present: decreased breath sounds - Cardiovascular Cardiovascular exam: Present: regular rate and rhythm, systolic murmur - GI/Abdominal GI/Abdominal exam: Present: normal bowel sounds - Extremities Exam Extremities exam: Present: normal inspection, normal capillary refill. Absent: edema - Neurological Exam Neurological exam: Present: alert - Skin Skin exam: Present: normal color, warm. Absent: cyanosis Result/EKG - Labs CBC & BMP: 11/15/16 05:14 11/15/16 05:14 Lab Results: I have reviewed the past 24 hour labs Labs: Laboratory Results - last 24 hr 11/14/16 11/14/16 11/14/16 12:40 18:19 23:25 WBC RBC Hgb Hct MCV MCH MCHC RDW Plt Count MPV Neut % (Auto) Lymph % (Auto) [place] % (Auto) Eos % (Auto) Baso % (Auto) Neut # (Auto) Lymph # (Auto) [place] # (Auto) Eos # (Auto) Baso # (Auto) Total Counted Immature Gran % Nucleated RBC % Immature Gran # Segmented Neutrophils Lymphocytes Monocytes Nucleated RBCs # Platelet Estimate Hypochromasia Ovalocytes Morphology Comment INR PT Patient/Control Mix Sodium Potassium Chloride Carbon Dioxide Anion Gap BUN Creatinine GFR Calculation BUN/Creatinine Ratio Glucose POC Glucose 219 H 176 H 149 H Calculated Osmolality Calcium Magnesium 11/15/16 11/15/16 11/15/16 05:14 05:14 05:14 WBC 5.5 RBC 3.34 L Hgb 9.5 L Hct 29.0 L MCV 86.8 L MCH 28 MCHC 32.8 RDW 16.6 Plt Count 215 D MPV 11.3 Neut % (Auto) 91.9 H Lymph % (Auto) 4.3 L [place] % (Auto) 2.0 Eos % (Auto) 0.0 Baso % (Auto) 0.0 Neut # (Auto) 5.1 Lymph # (Auto) 0.2 L [place] # (Auto) 0.1 L Eos # (Auto) 0.0 Baso # (Auto) 0.0 Total Counted 100 Immature Gran % 1.8 Nucleated RBC % 0.0 Immature Gran # 0.10 Segmented Neutrophils 95 H Lymphocytes 3 L Monocytes 2 Nucleated RBCs # 0.00 Platelet Estimate Normal Hypochromasia 1+ Ovalocytes Slight Morphology Comment INR 2.7 PT Patient/Control Mix 31.0 D Sodium 144 Potassium 3.7 Chloride 111 H Carbon Dioxide 25 Anion Gap 11.7 BUN 23 H Creatinine 0.60 GFR Calculation 79 BUN/Creatinine Ratio 38.00 H Glucose 136 H POC Glucose Calculated Osmolality 291.8 Calcium 7.5 L Magnesium 2.2 11/15/16 11/15/16 05:14 05:20 WBC RBC Hgb Hct MCV MCH MCHC RDW Plt Count MPV Neut % (Auto) Lymph % (Auto) [place] % (Auto) Eos % (Auto) Baso % (Auto) Neut # (Auto) Lymph # (Auto) [place] # (Auto) Eos # (Auto) Baso # (Auto) Total Counted Immature Gran % Nucleated RBC % Immature Gran # Segmented Neutrophils Lymphocytes Monocytes Nucleated RBCs # Platelet Estimate Hypochromasia Ovalocytes Morphology Comment INR PT Patient/Control Mix Sodium 144 Potassium 3.7 Chloride 110 H Carbon Dioxide 25 Anion Gap 12.7 BUN 23 H Creatinine 0.60 GFR Calculation 79 BUN/Creatinine Ratio 38.00 H Glucose 136 H POC Glucose 127 H Calculated Osmolality 291.8 Calcium 7.5 L Magnesium
--- NOTE | 2016-11-15 08:03 | Pulmonology Progress Note ---
Pulmonary - PN: Subj Interval history: Patient is an 86-year-old white lady that came in with atrial fibrillation and had a CVA. The patient is on a heparin infusion. She has right-sided weakness. She has a significant consolidated right upper lobe pneumonia. She has pneumococcus growing her cultures. She is getting IV antibiotics. She does not appear to be in any significant respiratory distress at present. She has converted to sinus rhythm now. She is comfortable and not having any respiratory distress. She still cannot move her right arm. Overall she appears stable. She can move to telemetry. Will check a chest x-ray tomorrow. Exam (Progress Note) - Constitutional Vitals: Period Temp Pulse Resp BP Sys/Aquino Pulse Ox Last 24 Hr 97.4 F-98.7 F 63-107 16-30 111-151/62-94 91-100 Exam: General appearance: normal weight, other (She does look somewhat chronically ill , she is resting comfortably.) - Head Head exam: Present: normal inspection, normocephalic - Eye Eye exam: Present: EOMI. Absent: scleral icterus Pupils: Present: ROMANA - ENT ENT exam: Present: normal exam - Neck Neck exam: Present: normal inspection. Absent: lymphadenopathy, thyromegaly - Respiratory Respiratory exam: Present: She has good breath sounds bilaterally is moving air well. Her lungs sound better today. - Cardiovascular Cardiovascular exam: Present: regular rhythm. She had no loud murmur or gallop. - GI/Abdominal GI/Abdominal exam: Present: normal bowel sounds, soft. Absent: organomegaly, tenderness - Extremities Exam Extremities exam: Absent: calf tenderness, edema - Neurological Exam Neurological exam: Present: altered (She will answer questions but gets confused easily), other (She is unable to move her right arm very well at all) - Psychiatric Psychiatric exam: Absent: anxious - Skin Skin exam: Present: warm, dry Results - Labs CBC & BMP: 11/15/16 05:14 11/15/16 05:14 Assessment and Plan (1) Right upper lobe pneumonia Status: Acute Assessment and plan: Patient looks like she has right upper lobe pneumonia. She is growing pneumococcus out of her sputum and this is certainly consistent with a pneumococcal pneumonia. She is tolerating antibiotics well and she does not appear toxic. She is breathing well and will check a chest x-ray tomorrow. Current Visit: Yes Qualifiers: Pneumonia type: due to Pneumococcus Qualified Code(s): J13 - Pneumonia due to Streptococcus pneumoniae (2) Atrial fibrillation with rapid ventricular response Status: Acute Assessment and plan: Her heart rate is back in a sinus rhythm now. Current Visit: Yes (3) Hypertension Status: Acute Assessment and plan: Her blood pressure is better now. Current Visit: Yes (4) Acute CVA (cerebrovascular accident) Status: Acute Assessment and plan: She has had a CVA and is unable to move her right arm. Otherwise she seems relatively stable Current Visit: Yes
[2016-11-15] MEDS: ASPIRIN 325 MG TABLET PO SCH (08:51)
[2016-11-15] MEDS: METOPROLOL TARTRATE 25 MG TABLET PO SCH ×2 (08:51→21:01)
[2016-11-15] MEDS: POTASSIUM CHLORIDE 20 MEQ/15 ML UDCUP PO SCH (08:54)
[2016-11-15] MEDS: PANTOPRAZOLE 40 MG VIAL IV SCH (08:56)
--- NOTE | 2016-11-15 09:25 | Hospitalist Progress Note ---
Assessment and Plan (1) Altered mental status Status: Acute Assessment and plan: 11/10/2016 CT head x2- showed no acute changes. Patient is less conversive, her right UE is flaccid. Her WBC is up,no fever documented. Her sodium is higher at 150. 11/11/2016- She is scheduled for an MRI this am.Carotid dopplers showed findings consistent with less than 50% stenosis on the right,greater than 70% stenosis on the left, suggested possibility of stenosis at the origin of the left common carotid artery.Vascular Surgery has seen her and they have ordered a CT angiogram. Echo showed normal left ventricular cavity size, mild left ventricular hypertrophy. EF-65%. Neuro has seen-they think it is likely acute CVA in the left MCA distribution. Risk factors included atrial fibrillation as well as left ICA stenosis. Sodium level is slowly improving.Sputum culture grew gram positive cocci- microstrep 11/12/2016 Patient is more alert, oriented x3. MRI showed a moderate to large acute infarction mainly in the left MCA distribution, but a watershed type infarction should be considered. MRA- Limited exam without convincing evidence of significant intracranial arterial abnormalities 11/13/2016 Patient is talking and obeying commands but has no use of the right upper extremity 11/14/2016 Patient is talking, obeying commands. 11/15/2016 She is alert, obeys commands, gets disoriented every now and then. She has no use of the RUE Plan Continue with Neuro's recommendations t Current Visit: Yes (2) Hypernatremia Status: Acute Assessment and plan: improved Current Visit: Yes (3) Right upper lobe pneumonia Status: Acute Assessment and plan: Sputum grew Strep pneumoniae. BC-negative so far plan continue with IV Zosyn. Current Visit: Yes Qualifiers: Pneumonia type: due to Pneumococcus Qualified Code(s): J13 - Pneumonia due to Streptococcus pneumoniae (4) Acute respiratory distress Status: Resolved Assessment and plan: improving. Plan continue with IV steroids, nebs treatment and IV antibiotics Current Visit: Yes (5) Right sided weakness Status: Acute Assessment and plan: This is due to an acute moderate to large acute infarction mainly in the left MCA distribution, but a watershed type infarction should be considered. Risk factors included atrial fibrillation as well as left ICA stenosis. CT head x2-no active changes Carotid dopplers showed findings consistent with less than 50% stenosis on the right,greater than 70% stenosis on the left, suggested possibility of stenosis at the origin of the left common carotid artery.Vascular Surgery has seen her and they have ordered a CT angiogram. Echo showed normal left ventricular cavity size, mild left ventricular hypertrophy. EF-65%. Neurology and CT surgery are following-will not pursue a carotid artery stenosis at this time and wait for few weeks 11/11/2016 Speech therapy re-evaluated patient and recommended a pureed diet. Patient is more alert and oriented x3. MRI showed a moderate to large acute infarction mainly in the left MCA distribution, but a watershed type infarction should be considered. MRA- Limited exam without convincing evidence of significant intracranial arterial abnormalities 11/13/2016 Patient is talking and obeying commands. She has no use of the right upper extremity yet. 11/14/2016 RUE weakness RLE-slowly improving 11/15/2016 She is alert, obeys commands, gets disoriented every now and then. She has no use of the RUE Plan Continue anticoagulation Continue PT/OT Continue other management and Follow Neuro's recommendations Ok to transfer to Telemetry Current Visit: Yes (6) Atrial fibrillation with rapid ventricular response Status: Acute Assessment and plan: Patient has been switched to po metoprolol.INR is therapeutic.She converted to sinus rhythm last night. plan Continue to follow Cardiology's recommendations. Current Visit: Yes (7) Septic shock Status: Acute Assessment and plan: -improved Sputum grew Strep pneumoniae. Plan See treatment plan above Current Visit: Yes (8) Lung mass Status: Acute Assessment and plan: Family members requested for a CT chest because they've been told in the past that patient has a mass. They want to know details about the mass so they can plan if necessary end of life issues. CT chest showed area of dense consolidation involving the right upper lobe with air bronchograms and several cystic changes concerning for developing cavities.Area of faint alveolar density developing with in the lateral upper lobe and more central left lobe favouring infection. Soft tissue mantle encasing the right hilium without narrowing the associated pulmonary arteries or airway. Bibasilar atelectasis, scarring and tiny bilateral pleural effusions. Pulm has seen. They do not see definite obstruction. She may need a bronchoscope later. Plan continue IV antibiotics Appreciates Pulm's input Current Visit: Yes (9) Hypokalemia Status: Acute Assessment and plan: resolved, bmp in am Current Visit: Yes Hospitalist: Subjective Interval history: patient seen this am. She was alert, follows commands. She gets disoriented every now and then.She converted to sinus rhythm last night.She is still unable to move her right UE.She is stable to be transferred to Telemetry today. Heparin ggt was dcd yesterday and INR is therapeutic. Exam - Constitutional Vitals: Period Temp Pulse Resp BP Sys/Aquino Pulse Ox Last 24 Hr 97.4 F-98.7 F 63-107 16-30 111-151/62-94 91-100 General appearance: no acute distress, other (frail) - Head Head exam: Present: normal inspection - Respiratory Respiratory exam: Present: clear to auscultation bilaterally - Cardiovascular Cardiovascular exam: Present: regular rate and rhythm - GI/Abdominal GI/Abdominal exam: Present: normal bowel sounds - Extremities Exam Extremities exam: Present: normal inspection - Neurological Exam Neurological exam: Present: alert - Psychiatric Psychiatric exam: Present: normal affect Results - Labs CBC & BMP: 11/15/16 05:14 11/15/16 05:14 Lab Results: I have reviewed the past 24 hour labs
--- NOTE | 2016-11-15 09:54 | EKG Report ---
Stationary ECG Study [facility] Test Date: 11/15/2016 9:54:59 AM Pat Name: CORDELL JAMES Department: Room: 111 Gender: F Admissions Coordinator: DAVID : [id number] Requested by: Juan Antoino Gibbs Order Number: [id number] Reading MD: MARK WEST Intervals [place] Rate: 66 P: 83 MN: 182 QRS: -2 QRSD: 104 T: 72 QT: 402 QTc: 416 Interpretive Statements SINUS RHYTHM at [address] DEVIATION AND MODERATE T-WAVE ABNORMALITY, CONSIDER ANTERIOR ISCHEMIA; ST-T change since previous tracing 11/09/2016 Electronically Signed On 11-16-16 13:16:28 CDT by MARK WEST [email or web address]
--- NOTE | 2016-11-15 16:23 | Neurology Progress Note ---
Neurology - PN : Subjective Interval history: Ms. Lake seems to be doing better. She has dense right hemiplegia with extinction and neglect of the right body. However she is able to move her right lower extremity. Exam (Progress Note) - Constitutional Vitals: Period Temp Pulse Resp BP Sys/Aquino Pulse Ox Last 24 Hr 96.7 F-98.7 F 63-103 16-30 111-155/68-94 91-100 Exam: GENERAL: Patient is in no acute distress. NECK: Neck is supple. There is no JVD. No carotid bruits present. No thyroid masses. CVS: First and second heart sounds are normal. There is no S3 present. Regular rate and rhythm. RESPIRATORY: Lungs are clear to auscultation without any rales or rhonchi. ABDOMEN: Soft and non-tender. Bowel sounds are present. There is no hepatosplenomegaly. EXT: There is no palpable edema. Peripheral pulses are present. Skin: No rashes Central Nervous system: General: Alert, awake Speech: Non-fluent Comprehension: Fair Facial expressions: Normal Cranial Nerves: CN1/Olfactory: Normal CN II/ Optic: Normal, Visual [place] right homonymous hemianopia. CN III, and : ROMANA & EOMI Motor: Bulk and Tone is normal. Strength in the right 1-2/5 Strength in the left 3-4/5 Sensory: Unreliable Reflexes: 1+ and symmetrical Cerebellar function: Not tested Toes: Equivocal Gait: Not tested Results - Labs CBC & BMP: 11/15/16 05:14 11/15/16 05:14 Assessment and Plan (1) Acute CVA (cerebrovascular accident) Status: Acute Assessment and plan: Left MCA acute CVA INR is 2.7 We will resume Coumadin from tomorrow Awaiting PT report and will decide whether she needs to to go to TMR versus swing bed. Current Visit: Yes (2) Carotid artery disease Status: Acute Assessment and plan: Continue watchful observation Current Visit: Yes
[2016-11-16] MEDS: methylPREDNISolone SOD SUC 40 MG/1 ML VIAL IV SCH ×3 (00:31→16:12)
[2016-11-16] MEDS: INSULIN LISPRO 100 UNIT/ML SUBCUT SCH ×4 (00:38→18:04)
[2016-11-16] MEDS: PIPERACILLIN/TAZOBACTAM 3,375 MG in SODIUM CHLORIDE 0.9% 100 ML IV SCH ×3 (04:20→18:04)
[2016-11-16 04:46] LABS: INR 2.9
[2016-11-16 04:47] LABS: PT Patient Result 32.4 SECS
--- NOTE | 2016-11-16 07:46 | XRay Report ---
Single view of the chest. Indication: Pneumonia. Comparison: November 10, 2016. The heart is enlarged. There is uncoiling of the thoracic aorta. There is calcification present within the aortic knob. There is volume loss on the right, which shifted the mediastinal structures to the right. Dense infiltrate in the right upper lobe shows some partial clearing. New volume loss at the right lung base, with development of a moderate pleural effusion. Calcific plaque over the carotids. Postsurgical changes of the right shoulder. Nasogastric tube has been removed. Impression: Mixed findings, with partial clearing of the infiltrate of the right upper lobe, but development of right basilar volume loss and right-sided free pleural effusion. PROCEDURE INTERPRETED AT [facility] DEPARTMENT OF RADIOLOGY Final Report Signed by: Dr. Mulu Yoon
[2016-11-16] MEDS: METOPROLOL TARTRATE 25 MG TABLET PO SCH (08:38)
[2016-11-16] MEDS: PANTOPRAZOLE 40 MG VIAL IV SCH (08:38)
[2016-11-16] MEDS: ASPIRIN 325 MG TABLET PO SCH (08:39)
--- NOTE | 2016-11-16 09:33 | Pulmonology Progress Note ---
Pulmonary - PN: Subj Interval history: Patient is an 86-year-old white lady that came in with atrial fibrillation and had a CVA. She has been stabilized and back in a sinus rhythm. She is off the heparin drip although her INR is 2.9. She says she is breathing okay but does have considerable right upper lobe consolidation still. She is actually having more volume loss on the right lung. Will go ahead with the bronchoscope and check her airway. We will plan this for tomorrow. She does seem to be breathing comfortably. Exam (Progress Note) - Constitutional Vitals: Period Temp Pulse Resp BP Sys/Aquino Pulse Ox Last 24 Hr 96.7 F-97.9 F 63-68 16-25 126-155/70-91 90-100 Exam: General appearance: normal weight, other (She does look somewhat chronically ill , she is resting comfortably.) - Head Head exam: Present: normal inspection, normocephalic - Eye Eye exam: Present: EOMI. Absent: scleral icterus Pupils: Present: ROMANA - ENT ENT exam: Present: normal exam - Neck Neck exam: Present: normal inspection. Absent: lymphadenopathy, thyromegaly - Respiratory Respiratory exam: Present: She has good breath sounds bilaterally is moving air well. She does have some crackles in her right upper lung field. - Cardiovascular Cardiovascular exam: Present: regular rhythm. She had no loud murmur or gallop. - GI/Abdominal GI/Abdominal exam: Present: normal bowel sounds, soft. Absent: organomegaly, tenderness - Extremities Exam Extremities exam: Absent: calf tenderness, edema - Neurological Exam Neurological exam: Present: altered (She will answer questions but gets confused easily), other (She is unable to move her right arm very well at all) - Psychiatric Psychiatric exam: Absent: anxious - Skin Skin exam: Present: warm, dry Results - Labs CBC & BMP: 11/15/16 05:14 11/15/16 05:14 - Diagnostic Findings Procedure: Chest x-ray: image reviewed by me, report reviewed by me (Chest x- ray still shows right upper lobe consolidation with some volume loss now.) Assessment and Plan (1) Right upper lobe pneumonia Status: Acute Assessment and plan: Patient looks like she has right upper lobe pneumonia. She is growing pneumococcus out of her sputum and this is certainly consistent with a pneumococcal pneumonia. She is tolerating antibiotics well and she does not appear toxic. She still has considerable consolidation in the right upper lobe. We will plan a bronchoscope tomorrow to see if she is obstructed. Current Visit: Yes Qualifiers: Pneumonia type: due to Pneumococcus Qualified Code(s): J13 - Pneumonia due to Streptococcus pneumoniae (2) Atrial fibrillation with rapid ventricular response Status: Acute Assessment and plan: Her heart rate is back in a sinus rhythm now. She appears to be hemodynamically stable. Current Visit: Yes (3) Hypertension Status: Acute Assessment and plan: Her blood pressure is better now. Current Visit: Yes (4) Acute CVA (cerebrovascular accident) Status: Acute Assessment and plan: She has had a CVA and is unable to move her right arm. Otherwise she seems relatively stable Current Visit: Yes
--- NOTE | 2016-11-16 12:22 | Hospitalist Progress Note ---
Assessment and Plan (1) Altered mental status Status: Acute Assessment and plan: due to a moderate to large acute infarction mainly in the left MCA distribution , but a watershed type infarction should be considered. 11/10/2016 CT head x2- showed no acute changes. Patient is less conversive, her right UE is flaccid. Her WBC is up,no fever documented. Her sodium is higher at 150. 11/11/2016- She is scheduled for an MRI this am.Carotid dopplers showed findings consistent with less than 50% stenosis on the right,greater than 70% stenosis on the left, suggested possibility of stenosis at the origin of the left common carotid artery.Vascular Surgery has seen her and they have ordered a CT angiogram. Echo showed normal left ventricular cavity size, mild left ventricular hypertrophy. EF-65%. Neuro has seen-they think it is likely acute CVA in the left MCA distribution. Risk factors included atrial fibrillation as well as left ICA stenosis. Sodium level is slowly improving.Sputum culture grew gram positive cocci- microstrep 11/12/2016 Patient is more alert, oriented x3. MRI showed a moderate to large acute infarction mainly in the left MCA distribution, but a watershed type infarction should be considered. MRA- Limited exam without convincing evidence of significant intracranial arterial abnormalities 11/13/2016 Patient is talking and obeying commands but has no use of the right upper extremity 11/14/2016 Patient is talking, obeying commands. 11/15/2016 She is alert, obeys commands, gets disoriented every now and then. She has no use of the RUE 11/16/2016 Stable Plan Continue with Neuro's recommendations t Current Visit: Yes (2) Hypernatremia Status: Acute Assessment and plan: improved Current Visit: Yes (3) Right upper lobe pneumonia Status: Acute Assessment and plan: Sputum grew Strep pneumoniae. BC-negative so far. CXR report-noted plan continue with IV Zosyn. Current Visit: Yes Qualifiers: Pneumonia type: due to Pneumococcus Qualified Code(s): J13 - Pneumonia due to Streptococcus pneumoniae (4) Acute respiratory distress Status: Resolved Assessment and plan: improving. Plan continue with IV steroids, nebs treatment and IV antibiotics Current Visit: Yes (5) Right sided weakness Status: Acute Assessment and plan: This is due to an acute moderate to large acute infarction mainly in the left MCA distribution, but a watershed type infarction should be considered. Risk factors included atrial fibrillation as well as left ICA stenosis. CT head x2-no active changes Carotid dopplers showed findings consistent with less than 50% stenosis on the right,greater than 70% stenosis on the left, suggested possibility of stenosis at the origin of the left common carotid artery.Vascular Surgery has seen her and they have ordered a CT angiogram. Echo showed normal left ventricular cavity size, mild left ventricular hypertrophy. EF-65%. Neurology and CT surgery are following-will not pursue a carotid artery stenosis at this time and wait for few weeks 11/11/2016 Speech therapy re-evaluated patient and recommended a pureed diet. Patient is more alert and oriented x3. MRI showed a moderate to large acute infarction mainly in the left MCA distribution, but a watershed type infarction should be considered. MRA- Limited exam without convincing evidence of significant intracranial arterial abnormalities 11/13/2016 Patient is talking and obeying commands. She has no use of the right upper extremity yet. 11/14/2016 RUE weakness RLE-slowly improving 11/15/2016 She is alert, obeys commands, gets disoriented every now and then. She has no use of the RUE Plan Continue anticoagulation Continue PT/OT Continue other management and Follow Neuro's recommendations Ok to transfer to Telemetry Current Visit: Yes (6) Atrial fibrillation with rapid ventricular response Status: Acute Assessment and plan: Patient has been switched to po metoprolol.INR is therapeutic.She converted to sinus rhythm. plan Continue to follow Cardiology's recommendations. Current Visit: Yes (7) Septic shock Status: Acute Assessment and plan: -improved Sputum grew Strep pneumoniae. Plan See treatment plan above Current Visit: Yes (8) Lung mass Status: Acute Assessment and plan: Family members requested for a CT chest because they've been told in the past that patient has a mass. They want to know details about the mass so they can plan if necessary end of life issues. CT chest showed area of dense consolidation involving the right upper lobe with air bronchograms and several cystic changes concerning for developing cavities.Area of faint alveolar density developing with in the lateral upper lobe and more central left lobe favouring infection. Soft tissue mantle encasing the right hilium without narrowing the associated pulmonary arteries or airway. Bibasilar atelectasis, scarring and tiny bilateral pleural effusions. Pulm has seen. They do not see definite obstruction. She may need a bronchoscope later. Plan continue IV antibiotics Appreciates Pulm's input Current Visit: Yes (9) Hypokalemia Status: Acute Assessment and plan: resolved, bmp in am Current Visit: Yes (10) Carotid stenosis Status: Acute Assessment and plan: Carotid dopplers showed findings consistent with less than 50% stenosis on the right,greater than 70% stenosis on the left, suggested possibility of stenosis at the origin of the left common carotid artery. Vascular surgery has seen. Current Visit: Yes Hospitalist: Subjective Interval history: Patient seen and she appears stable. No new complaints. Exam - Constitutional Vitals: Period Temp Pulse Resp BP Sys/Aquino Pulse Ox Last 24 Hr 96.7 F-97.9 F 61-68 16-23 142-155/73-91 90-100 General appearance: no acute distress - Head Head exam: Present: normal inspection - Respiratory Respiratory exam: Present: clear to auscultation bilaterally - Cardiovascular Cardiovascular exam: Present: irregular rhythm - GI/Abdominal GI/Abdominal exam: Present: normal bowel sounds - Back Exam Back exam: Present: normal inspection - Neurological Exam Neurological exam: Present: alert Results - Labs CBC & BMP: 11/15/16 05:14 11/15/16 05:14 Lab Results: I have reviewed the past 24 hour labs
--- NOTE | 2016-11-16 18:07 | Cardiology Progress Note ---
I, Elsy Luna RN, am scribing for, and in the presence of, Juan Antonio Gibbs MD 18 :06. Assessment and Plan - Time spent with patient Time spent with patient: Greater than 30 minutes (1) Atrial fibrillation with rapid ventricular response Status: Acute Assessment and plan: 86-year-old female, presenting with acute MCA CVA, carotid artery stenosis, episode of A. fib/RVR, anemia, pneumonia. Mildly elevated cardiac biomarkers, without significant ischemic EKG changes or arrhythmia. -Atrial fib. No recurrence. Increase metoprolol to 50 mg bid. Amiodarone is an option for recurrent AF. I would pursue intensive rate/rhythm control, the heart rate was significantly elevated in AF. -Elevated cardiac biomarkers. No clinical findings for ACS. LV EF 65%. Continue ASA. I would hold off statin, LDL 30, frail pt. -Anticoagulation. Coumadin held for 2 days now. INR therapeutic, goal 2-3. -RIGO. Was seen by vascular surgery. On ASA Current Visit: Yes (2) Acute respiratory distress Status: Resolved Current Visit: Yes (3) Altered mental status Status: Acute Current Visit: Yes (4) Anemia Status: Acute Current Visit: Yes (5) Hypertension Status: Acute Current Visit: Yes (6) Hypothyroidism Status: Chronic Current Visit: Yes (7) Right sided weakness Status: Acute Current Visit: Yes (8) Right upper lobe pneumonia Status: Acute Current Visit: Yes Qualifiers: Pneumonia type: due to Pneumococcus Qualified Code(s): J13 - Pneumonia due to Streptococcus pneumoniae (9) Dyslipidemia Status: Chronic Assessment and plan: Resume statin when able Current Visit: Yes Cardiology - PN: Subj Interval history: Awake, appears comfortable today. Verbal response to open and closed ended questions is "yes." No recurrence of AF or other ectopy. SR with HR 60s. INR acceptable range today at 2.9. She is planned for FOB tomorrow for continued RUL PNA. Exam (Progress Note) - Constitutional Vitals: Period Temp Pulse Resp BP Sys/Aquino Pulse Ox Last 24 Hr 96.7 F-97.9 F 63-68 16-25 140-155/74-91 90-100 Exam: General appearance: normal weight, no acute distress. Other (frail) - Head Head exam: Present: normal inspection - Eye Eye exam: Absent: conjunctival injection Pupils: Absent: dilated - ENT ENT exam: Present: normal external ear exam - Neck Neck exam: Present: normal inspection. Absent: JVD, mass, tenderness - Respiratory Respiratory exam: Present: decreased breath sounds. Absent: rhonchi, stridor, wheeze - Cardiovascular Cardiovascular exam: Present: regular rate and rhythm, systolic murmur. Absent: bradycardia, tachycardia, irregular rhythm - GI/Abdominal GI/Abdominal exam: Present: normal bowel sounds, soft, nontender. Absent: firm, mass, guarding - Extremities Exam Extremities exam: Present: normal inspection, normal capillary refill. Absent: edema - Neurological Exam Neurological exam: Present: alert. Flat affect - Skin Skin exam: Present: normal color, warm. Absent: cyanosis, diaphoresis Result/EKG - Labs CBC & BMP: 11/15/16 05:14 11/15/16 05:14 Lab Results: I have reviewed the past 24 hour labs Labs: Laboratory Results - last 24 hr 11/15/16 11/15/16 11/16/16 11:30 17:52 00:30 INR PT Patient/Control Mix POC Glucose 194 H 157 H 199 H 11/16/16 11/16/16 03:59 06:23 INR 2.9 PT Patient/Control Mix 32.4 POC Glucose 92 - Diagnostic Findings Procedure: Chest x-ray: image reviewed by me, report reviewed by me (11/16/16: improvement of right upper lobe PNA, now right free pleural effusion and right basilar volume loss) - EKG EKG results: interpreted by me, no acute changes EKG shows: sinus rhythm IBernie Attila, MD, personally performed the services described in this documentation, ascribed by Elsy Luna RN in my presence, and it is both accurate and complete [id number] .
--- NOTE | 2016-11-16 18:42 | Neurology Progress Note ---
Neurology - PN : Subjective Interval history: Ms Lake seems to be doing ok. No new problems reported. Feeling better. Still quite weak in the right side. speech is improving slowly. Exam (Progress Note) - Constitutional Vitals: Period Temp Pulse Resp BP Sys/Aquino Pulse Ox Last 24 Hr 97.0 F-97.9 F 61-72 16-20 142-158/73-91 90-97 Exam: GENERAL: Patient is in no acute distress. NECK: Neck is supple. There is no JVD. No carotid bruits present. No thyroid masses. CVS: First and second heart sounds are normal. There is no S3 present. Regular rate and rhythm. RESPIRATORY: Lungs are clear to auscultation without any rales or rhonchi. ABDOMEN: Soft and non-tender. Bowel sounds are present. There is no hepatosplenomegaly. EXT: There is no palpable edema. Peripheral pulses are present. Skin: No rashes Central Nervous system: General: Alert, awake Speech: Non-fluent Comprehension: Fair Facial expressions: Normal Cranial Nerves: CN1/Olfactory: Normal CN II/ Optic: Normal, Visual Chatman right homonymous hemianopia. CN III, and : ROMANA & EOMI Motor: Bulk and Tone is normal. Strength in the right 1-2/5 Strength in the left 3-4/5 Sensory: Unreliable Reflexes: 1+ and symmetrical Cerebellar function: Not tested Toes: Equivocal Gait: Not tested Results - Labs CBC & BMP: 11/15/16 05:14 11/15/16 05:14 Assessment and Plan (1) Acute CVA (cerebrovascular accident) Status: Acute Assessment and plan: Left MCA acute CVA INR is 2.9 Coumadin is on hold. Current Visit: Yes (2) Carotid artery disease Status: Acute Assessment and plan: Continue watchful observation Current Visit: Yes
[2016-11-16] MEDS: METOPROLOL TARTRATE 50 MG TABLET PO SCH (20:51)
[2016-11-17] MEDS: INSULIN LISPRO 100 UNIT/ML SUBCUT SCH ×4 (00:26→18:28)
[2016-11-17] MEDS: methylPREDNISolone SOD SUC 40 MG/1 ML VIAL IV SCH ×3 (00:30→16:30)
[2016-11-17] MEDS: PIPERACILLIN/TAZOBACTAM 3,375 MG in SODIUM CHLORIDE 0.9% 100 ML IV SCH ×3 (03:21→18:29)
[2016-11-17 05:29] LABS: Hematocrit 29.3 VOL% (35.7-47.0); Hemoglobin 9.4 GM/DL (12.0-16.0); Immature Granulocytes % 1.9 %; Immature Granulocytes Absolute 0.16 #; Lymphocytes # 0.2 10*3/uL (1.4-4.0); Lymphocytes % 1.9 % (21.3-54.2); Mean Corpuscular HGB Conc 32.1 GM/DL (32-36); Mean Corpuscular Hemoglobin 29 PG (27-34); Mean Corpuscular Volume 89.1 FL (87-102); Mean Platelet Volume 11.2 FL (9.6-12.0); Monocytes # 0.2 10*3/uL (0.11-0.8); Monocytes % 1.8 % (1.7-12.7); Neutrophils % 94.4 % (38.7-73.9); Platelet Count 293 T/CUMM (130-400); Red Blood Count 3.29 MC/CUMM (3.8-5.5); Red Cell Distribution Width 17.1 % (9.3-17.3); White Blood Count 8.5 T/CUMM (4-12)
[2016-11-17 05:40] LABS: INR 3.3
[2016-11-17 05:42] LABS: PT Patient Result 37.2 SECS
[2016-11-17 05:57] LABS: Calcium 7.8 MG/DL (8.5-10.1); Potassium 4.2 MMOL/L (3.5-5.1)
[2016-11-17 05:59] LABS: Calcium 7.5 MG/DL (8.5-10.1); Elliptocytes Few; Hypochromasia 1+; Lymphocytes 3 % (20-55); Magnesium 2.2 MG/DL (1.8-2.4); Platelet Estimate Adequate; Potassium 4.2 MMOL/L (3.5-5.1); Segmented Neutrophils 95 % (50-85); Total Cells Counted 100
[2016-11-17] MEDS ORDERED: MIDAZOLAM 2 MG/2 ML VIAL ONE (06:51)
[2016-11-17] MEDS ORDERED: MEPERIDINE 50 MG/1 ML VIAL IM ONE (07:30)
[2016-11-17] MEDS ORDERED: PROMETHAZINE 25 MG/1 ML VIAL IM ONE (07:30)
--- NOTE | 2016-11-17 07:38 | Pulmonology Progress Note ---
Pulmonary - PN: Subj Interval history: Patient is an 86-year-old white lady that came in with atrial fibrillation and had a CVA. She has been stabilized and back in a sinus rhythm. She is off the heparin drip although her INR is 3.3. She has been reasonably stable but still does not talk much. She does not have any respiratory distress. We will plan a bronchoscope and check her airway. She does have right upper lobe consolidation. Her neuro status is about the same. Exam (Progress Note) - Constitutional Vitals: Period Temp Pulse Resp BP Sys/Aquino Pulse Ox Last 24 Hr 97.1 F-97.6 F 58-85 16-20 146-189/73-110 90-98 Exam: General appearance: normal weight, other (She does look somewhat chronically ill , she looks around but will not talk much. She is resting comfortably.) - Head Head exam: Present: normal inspection, normocephalic - Eye Eye exam: Present: EOMI. Absent: scleral icterus Pupils: Present: ROMANA - ENT ENT exam: Present: normal exam - Neck Neck exam: Present: normal inspection. Absent: lymphadenopathy, thyromegaly - Respiratory Respiratory exam: Present: She has good breath sounds bilaterally is moving air well. She does have some rhonchi and crackles in the right upper lung. - Cardiovascular Cardiovascular exam: Present: regular rhythm. She had no loud murmur or gallop. - GI/Abdominal GI/Abdominal exam: Present: normal bowel sounds, soft. Absent: organomegaly, tenderness - Extremities Exam Extremities exam: Absent: calf tenderness, edema - Neurological Exam Neurological exam: Present: altered (She will answer questions but gets confused easily), other (She is unable to move her right arm very well at all) - Psychiatric Psychiatric exam: Absent: anxious - Skin Skin exam: Present: warm, dry Results - Labs CBC & BMP: 11/17/16 04:17 11/17/16 04:17 Assessment and Plan (1) Right upper lobe pneumonia Status: Acute Assessment and plan: Patient looks like she has right upper lobe pneumonia. She is growing pneumococcus out of her sputum and this is certainly consistent with a pneumococcal pneumonia. Her chest x-ray suggested some volume loss on the right so will take a quick look at her airway. Otherwise we will continue antibiotics. Current Visit: Yes Qualifiers: Pneumonia type: due to Pneumococcus Qualified Code(s): J13 - Pneumonia due to Streptococcus pneumoniae (2) Atrial fibrillation with rapid ventricular response Status: Acute Assessment and plan: Her heart rate is back in a sinus rhythm now. She appears to be hemodynamically stable. Current Visit: Yes (3) Hypertension Status: Acute Assessment and plan: Her blood pressure is a little more elevated lately. Current Visit: Yes (4) Acute CVA (cerebrovascular accident) Status: Acute Assessment and plan: She has had a CVA and is unable to move her right arm. Otherwise she seems relatively stable. She has not had much neurological change Current Visit: Yes
--- NOTE | 2016-11-17 07:42 | Operative Note ---
Date of procedure: 11/17/16 Pre-op diagnosis: Right upper lobe consolidation Post-op diagnosis: other (Mild mucosal swelling right upper lobe but no endobronchial lesion. Mucous plugging.) Procedure: Patient is an 86-year-old that has had a recent CVA. She has right upper lobe consolidation with some volume loss. A bronchoscope will be done to assess her airways. Timeout was performed to identify the patient. The patient is in the bronchoscopy lab. Preop: Demerol 50 mg, Phenergan 25 mg IM Anesthesia: Versed 2 mg IVP, topical lidocaine. Procedure: The fiberoptic bronchoscope was passed transnasally through the vocal cords into the lungs. The bronchopulmonary segments were identified and specimens were obtained. Findings: The vocal cords close normally and the trachea is unremarkable. The left upper lobe, lingula, and left lower lobe are all normal. The right upper lobe has some mucosal swelling and collapses easily. However it opens up normal and there are no definite endobronchial lesion seen. There is some thick mucus and plugs that were washed and cleared. Washings and brushings were taken from the right upper lobe and sent for cytology and culture. The right lower lobe and right middle lobe look unremarkable. The mucosa is a little inflamed and bled easily. This was controlled with saline. She coughs some but tolerated the procedure well. Impression: Right upper lobe pneumonia with some mucosal inflammation. Mild mucous plugging. Plan we will continue antibiotics and observation. Anesthesia: conscious sedation Surgeon / Physician: Redd Méndez Estimated blood loss: none Specimens: other (Washings and brushings were sent for culture and cytology) Condition: stable Disposition: floor Results - Labs CBC & BMP: 11/17/16 04:17 11/17/16 04:17 Discharge Plan - Discharge Medications No Action Sertraline [Zoloft] 50 mg PO BEDTIME Lovastatin 80 mg PO AC LUNCH tiZANidine [Zanaflex] 2 mg PO Q8HR PRN PRN Reason: Muscle Spasm Levothyroxine Tab [Synthroid Tab] 0.025 mg PO DAILY Lisinopril/Hydrochlorothiazide [Lisinopril-Hctz 10-12.5 mg Tab] 1 tablet PO DAILY rOPINIRole [Requip] 0.5 mg PO BEDTIME - Follow Up or Referral - Forms/Instructions
[2016-11-17] MEDS ORDERED: LIDOCAINE 1% 20 ML VIAL MISC INJ ONE (08:00)
[2016-11-17] MEDS ORDERED: LIDOCAINE 4% TOP SOLN 50 ML BOTTLE RESP TX ONE (08:00)
[2016-11-17] MEDS ORDERED: LIDOCAINE 2% VISCOUS 100 ML BOTTLE SWISH/SPIT ONE (08:00)
[2016-11-17] MEDS ORDERED: MIDAZOLAM 2 MG/2 ML VIAL IV ONE (08:00)
[2016-11-17] MEDS: PANTOPRAZOLE 40 MG VIAL IV SCH (10:29)
[2016-11-17] MEDS: METOPROLOL TARTRATE 50 MG TABLET PO SCH ×2 (10:30→21:26)
[2016-11-17] MEDS: ASPIRIN 325 MG TABLET PO SCH (10:30)
--- NOTE | 2016-11-17 15:42 | Hospitalist Progress Note ---
Assessment and Plan (1) Altered mental status Status: Acute Assessment and plan: due to a moderate to large acute infarction mainly in the left MCA distribution , but a watershed type infarction should be considered. 11/10/2016 CT head x2- showed no acute changes. Patient is less conversive, her right UE is flaccid. Her WBC is up,no fever documented. Her sodium is higher at 150. 11/11/2016- She is scheduled for an MRI this am.Carotid dopplers showed findings consistent with less than 50% stenosis on the right,greater than 70% stenosis on the left, suggested possibility of stenosis at the origin of the left common carotid artery.Vascular Surgery has seen her and they have ordered a CT angiogram. Echo showed normal left ventricular cavity size, mild left ventricular hypertrophy. EF-65%. Neuro has seen-they think it is likely acute CVA in the left MCA distribution. Risk factors included atrial fibrillation as well as left ICA stenosis. Sodium level is slowly improving.Sputum culture grew gram positive cocci- microstrep 11/12/2016 Patient is more alert, oriented x3. MRI showed a moderate to large acute infarction mainly in the left MCA distribution, but a watershed type infarction should be considered. MRA- Limited exam without convincing evidence of significant intracranial arterial abnormalities 11/13/2016 Patient is talking and obeying commands but has no use of the right upper extremity 11/14/2016 Patient is talking, obeying commands. 11/15/2016 She is alert, obeys commands, gets disoriented every now and then. She has no use of the RUE 11/16/2016 Stable 11/17/2016 STABLE Plan Continue with Neuro's recommendations t Current Visit: Yes (2) Hypernatremia Status: Acute Assessment and plan: improved Current Visit: Yes (3) Right upper lobe pneumonia Status: Acute Assessment and plan: Sputum grew Strep pneumoniae. BC-negative so far. CXR report-noted. s/P multiple bronchoscopies plan continue with IV Zosyn. Current Visit: Yes Qualifiers: Pneumonia type: due to Pneumococcus Qualified Code(s): J13 - Pneumonia due to Streptococcus pneumoniae (4) Acute respiratory distress Status: Resolved Assessment and plan: improving. Plan continue with IV steroids, nebs treatment and IV antibiotics Current Visit: Yes (5) Right sided weakness Status: Acute Assessment and plan: This is due to an acute moderate to large acute infarction mainly in the left MCA distribution, but a watershed type infarction should be considered. Risk factors included atrial fibrillation as well as left ICA stenosis. CT head x2-no active changes Carotid dopplers showed findings consistent with less than 50% stenosis on the right,greater than 70% stenosis on the left, suggested possibility of stenosis at the origin of the left common carotid artery.Vascular Surgery has seen her and they have ordered a CT angiogram. Echo showed normal left ventricular cavity size, mild left ventricular hypertrophy. EF-65%. Neurology and CT surgery are following-will not pursue a carotid artery stenosis at this time and wait for few weeks 11/11/2016 Speech therapy re-evaluated patient and recommended a pureed diet. Patient is more alert and oriented x3. MRI showed a moderate to large acute infarction mainly in the left MCA distribution, but a watershed type infarction should be considered. MRA- Limited exam without convincing evidence of significant intracranial arterial abnormalities 11/13/2016 Patient is talking and obeying commands. She has no use of the right upper extremity yet. 11/14/2016 RUE weakness RLE-slowly improving 11/15/2016 &11/16/2016 She is alert, obeys commands, gets disoriented every now and then. She has no use of the RUE Plan Continue anticoagulation Continue PT/OT Continue other management and Follow Neuro's recommendations Ok to transfer to Telemetry Current Visit: Yes (6) Atrial fibrillation with rapid ventricular response Status: Acute Assessment and plan: Patient has been switched to po metoprolol.INR is therapeutic.She converted to sinus rhythm. plan Continue to follow Cardiology's recommendations. Current Visit: Yes (7) Septic shock Status: Acute Assessment and plan: -improved Sputum grew Strep pneumoniae. Plan See treatment plan above Current Visit: Yes (8) Lung mass Status: Acute Assessment and plan: Family members requested for a CT chest because they've been told in the past that patient has a mass. They want to know details about the mass so they can plan if necessary end of life issues. CT chest showed area of dense consolidation involving the right upper lobe with air bronchograms and several cystic changes concerning for developing cavities.Area of faint alveolar density developing with in the lateral upper lobe and more central left lobe favouring infection. Soft tissue mantle encasing the right hilium without narrowing the associated pulmonary arteries or airway. Bibasilar atelectasis, scarring and tiny bilateral pleural effusions. Pulm has seen. They do not see definite obstruction. She may need a bronchoscope later. Plan continue IV antibiotics Appreciates Pulm's input Current Visit: Yes (9) Hypokalemia Status: Acute Assessment and plan: resolved, bmp in am Current Visit: Yes (10) Carotid stenosis Status: Acute Assessment and plan: Carotid dopplers showed findings consistent with less than 50% stenosis on the right,greater than 70% stenosis on the left, suggested possibility of stenosis at the origin of the left common carotid artery. Vascular surgery has seen. Current Visit: Yes Hospitalist: Subjective Interval history: Patient seen, she was sleeping. She had a bronchoscopy today. Nursing staff reports she was sat up on a chair earlier on but still has no use of her RUE. I updated daughter about patient's condition and her swing bed disposition Exam - Constitutional Vitals: Period Temp Pulse Resp BP Sys/Aquino Pulse Ox Last 24 Hr 97.1 F-97.6 F 48-85 16-18 148-189/09-110 90-100 General appearance: no acute distress - Head Head exam: Present: normal inspection - Respiratory Respiratory exam: Present: rales - Cardiovascular Cardiovascular exam: Present: regular rate and rhythm - GI/Abdominal GI/Abdominal exam: Present: normal bowel sounds - Extremities Exam Extremities exam: Present: normal inspection - Neurological Exam Neurological exam: Present: other (RUE flacidity) Results - Labs CBC & BMP: 11/17/16 04:17 11/17/16 04:17 Lab Results: I have reviewed the past 24 hour labs
--- NOTE | 2016-11-17 16:57 | Cardiology Progress Note ---
Assessment and Plan (1) Atrial fibrillation with rapid ventricular response Status: Acute Assessment and plan: 86-year-old female, presenting with acute MCA CVA, carotid artery stenosis, episode of A. fib/RVR, anemia, pneumonia. Mildly elevated cardiac biomarkers, without significant ischemic EKG changes or arrhythmia. -Atrial fib. No recurrence. Cont metoprolol 50 mg bid. Amiodarone is an option for recurrent AF. I would pursue intensive rate/rhythm control, the heart rate was significantly elevated in AF. -Elevated cardiac biomarkers. No clinical findings for ACS. LV EF 65%. Continue ASA. I would hold off statin, LDL 30, frail pt. -Anticoagulation. Coumadin held for 2 days now. INR goal 2-3. -RIGO. Was seen by vascular surgery. On ASA Current Visit: Yes (2) Acute respiratory distress Status: Resolved Current Visit: Yes (3) Altered mental status Status: Acute Current Visit: Yes (4) Anemia Status: Acute Current Visit: Yes (5) Hypertension Status: Acute Current Visit: Yes (6) Hypothyroidism Status: Chronic Current Visit: Yes (7) Right sided weakness Status: Acute Current Visit: Yes (8) Right upper lobe pneumonia Status: Acute Current Visit: Yes Qualifiers: Pneumonia type: due to Pneumococcus Qualified Code(s): J13 - Pneumonia due to Streptococcus pneumoniae (9) Dyslipidemia Status: Chronic Assessment and plan: Resume statin when able Current Visit: Yes Cardiology - PN: Subj Interval history: Bronchoscopy identified pneumonia. She is still quite sedated No recurrence of sustained A. fib on telemetry. Exam (Progress Note) - Constitutional Vitals: Period Temp Pulse Resp BP Sys/Aquino Pulse Ox Last 24 Hr 97.1 F-97.6 F 48-85 16-18 111-189/09-110 90-100 General appearance: over weight - Head Head exam: Present: normal inspection - Eye Eye exam: Absent: conjunctival injection Pupils: Absent: dilated - ENT ENT exam: Present: normal external ear exam - Neck Neck exam: Present: normal inspection - Respiratory Respiratory exam: Present: decreased breath sounds - Cardiovascular Cardiovascular exam: Present: regular rate and rhythm, systolic murmur - GI/Abdominal GI/Abdominal exam: Present: normal bowel sounds - Extremities Exam Extremities exam: Present: normal inspection, normal capillary refill, edema (1+ ) - Neurological Exam Neurological exam: Present: alert - Psychiatric Psychiatric exam: Present: normal affect - Skin Skin exam: Present: normal color, warm. Absent: cyanosis Result/EKG - Labs CBC & BMP: 11/17/16 04:17 11/17/16 04:17 Lab Results: I have reviewed the past 24 hour labs Labs: Laboratory Results - last 24 hr 11/16/16 11/16/16 11/17/16 17:54 23:20 04:17 WBC RBC Hgb Hct MCV MCH MCHC RDW Plt Count MPV Neut % (Auto) Lymph % (Auto) [place] % (Auto) Eos % (Auto) Baso % (Auto) Neut # (Auto) Lymph # (Auto) [place] # (Auto) Eos # (Auto) Baso # (Auto) Total Counted Immature Gran % Nucleated RBC % Immature Gran # Segmented Neutrophils Lymphocytes Monocytes Nucleated RBCs # Platelet Estimate Hypochromasia Elliptocytes Morphology Comment INR 3.3 PT Patient/Control Mix 37.2 Sodium Potassium Chloride Carbon Dioxide Anion Gap BUN Creatinine GFR Calculation BUN/Creatinine Ratio Glucose POC Glucose 201 H 155 H Calculated Osmolality Calcium Magnesium 11/17/16 11/17/16 11/17/16 04:17 04:17 04:17 WBC 8.5 D RBC 3.29 L Hgb 9.4 L Hct 29.3 L MCV 89.1 MCH 29 MCHC 32.1 RDW 17.1 Plt Count 293 D MPV 11.2 Neut % (Auto) 94.4 H Lymph % (Auto) 1.9 L [place] % (Auto) 1.8 Eos % (Auto) 0.0 Baso % (Auto) 0.0 Neut # (Auto) 8.0 H Lymph # (Auto) 0.2 L [place] # (Auto) 0.2 Eos # (Auto) 0.0 Baso # (Auto) 0.0 Total Counted 100 Immature Gran % 1.9 Nucleated RBC % 0.0 Immature Gran # 0.16 Segmented Neutrophils 95 H Lymphocytes 3 L Monocytes 2 Nucleated RBCs # 0.00 Platelet Estimate Adequate Hypochromasia 1+ Elliptocytes Few Morphology Comment INR PT Patient/Control Mix Sodium 143 143 Potassium 4.2 4.2 Chloride 108 H 108 H Carbon Dioxide 24 27 Anion Gap 15.2 H 12.2 BUN 23 H 24 H Creatinine 0.50 L 0.60 GFR Calculation 84 79 BUN/Creatinine Ratio 46.00 H 40.00 H Glucose 122 H 124 H POC Glucose Calculated Osmolality 289.0 289.0 Calcium 7.8 L 7.5 L Magnesium 2.2 11/17/16 11:31 WBC RBC Hgb Hct MCV MCH MCHC RDW Plt Count MPV Neut % (Auto) Lymph % (Auto) [place] % (Auto) Eos % (Auto) Baso % (Auto) Neut # (Auto) Lymph # (Auto) [place] # (Auto) Eos # (Auto) Baso # (Auto) Total Counted Immature Gran % Nucleated RBC % Immature Gran # Segmented Neutrophils Lymphocytes Monocytes Nucleated RBCs # Platelet Estimate Hypochromasia Elliptocytes Morphology Comment INR PT Patient/Control Mix Sodium Potassium Chloride Carbon Dioxide Anion Gap BUN Creatinine GFR Calculation BUN/Creatinine Ratio Glucose POC Glucose 96 Calculated Osmolality Calcium Magnesium
[2016-11-18] MEDS: INSULIN LISPRO 100 UNIT/ML SUBCUT SCH ×4 (01:37→17:39)
[2016-11-18] MEDS: methylPREDNISolone SOD SUC 40 MG/1 ML VIAL IV SCH ×2 (01:54→09:32)
[2016-11-18] MEDS: PIPERACILLIN/TAZOBACTAM 3,375 MG in SODIUM CHLORIDE 0.9% 100 ML IV SCH ×2 (03:45→10:50)
[2016-11-18 06:14] LABS: Basophils % 0.1 % (0.0-0.8); Hematocrit 31.2 VOL% (35.7-47.0); Hemoglobin 9.7 GM/DL (12.0-16.0); Immature Granulocytes % 1.1 %; Immature Granulocytes Absolute 0.12 #; Lymphocytes # 0.1 10*3/uL (1.4-4.0); Lymphocytes % 1.1 % (21.3-54.2); Mean Corpuscular HGB Conc 31.1 GM/DL (32-36); Mean Corpuscular Hemoglobin 29 PG (27-34); Mean Platelet Volume 10.6 FL (9.6-12.0); Monocytes # 0.1 10*3/uL (0.11-0.8); Monocytes % 1.1 % (1.7-12.7); Neutrophils # 10.4 10*3/uL (1.4-7.4); Neutrophils % 96.6 % (38.7-73.9); Platelet Count 307 T/CUMM (130-400); Red Blood Count 3.39 MC/CUMM (3.8-5.5); Red Cell Distribution Width 17.1 % (9.3-17.3); White Blood Count 10.8 T/CUMM (4-12)
[2016-11-18 06:23] LABS: INR 2.7
[2016-11-18 06:30] LABS: PT Patient Result 30.1 SECS
[2016-11-18 06:40] LABS: Burr Cells Slight; Hypochromasia 1+; Lymphocytes 1 % (20-55); Platelet Estimate Adequate; Segmented Neutrophils 99 % (50-85); Total Cells Counted 100
[2016-11-18 06:47] LABS: Calcium 7.5 MG/DL (8.5-10.1); Osmolality,Calculated 287.1 MOS/KG (273-304); Potassium 4.1 MMOL/L (3.5-5.1)
--- NOTE | 2016-11-18 06:50 | XRay Report ---
History is post bronchoscopy. The heart is enlarged with diffuse prominence of the thoracic aorta There is being increasing mediastinal shift to the right with increasing diffuse hazy opacity in the right lung with more focal consolidation and/or effusion in the right base. Minimal reticular opacities in the left base are unchanged Impression: Worsening right lung opacities and volume loss PROCEDURE INTERPRETED AT [facility] DEPARTMENT OF RADIOLOGY Final Report Signed by: Dr. Carmita Yoon
--- NOTE | 2016-11-18 09:02 | Neurology Progress Note ---
Neurology - PN : Subjective Interval history: Ms. Lake seems to be doing about the same. No new problems reported. Participating somewhat in therapy. She is admitted to be discharged to swing bed and family wants to go to [place]. Exam (Progress Note) - Constitutional Vitals: Period Temp Pulse Resp BP Sys/Aquino Pulse Ox Last 24 Hr 97.4 F-98.0 F 48-61 16-20 111-163/54-83 90-99 Exam: GENERAL: Patient is in no acute distress. NECK: Neck is supple. There is no JVD. No carotid bruits present. No thyroid masses. CVS: First and second heart sounds are normal. There is no S3 present. Regular rate and rhythm. RESPIRATORY: Lungs are clear to auscultation without any rales or rhonchi. ABDOMEN: Soft and non-tender. Bowel sounds are present. There is no hepatosplenomegaly. EXT: There is no palpable edema. Peripheral pulses are present. Skin: No rashes Central Nervous system: General: Alert, awake Speech: Non-fluent Comprehension: Fair Facial expressions: Normal Cranial Nerves: CN1/Olfactory: Normal CN II/ Optic: Normal, Visual [place] right homonymous hemianopia. CN III, and : ROMANA & EOMI Motor: Bulk and Tone is normal. Strength in the right 1-2/5 Strength in the left 3-4/5 Sensory: Unreliable Reflexes: 1+ and symmetrical Cerebellar function: Not tested Toes: Equivocal Gait: Taking few steps with max assist Results - Labs CBC & BMP: 11/18/16 06:04 11/18/16 06:04 Assessment and Plan (1) Acute CVA (cerebrovascular accident) Status: Acute Assessment and plan: Left MCA acute CVA INR is 2.7 Coumadin is on hold. Continue current treatment with PT and OT. Okay to go to swing bed Current Visit: Yes (2) Carotid artery disease Status: Acute Assessment and plan: Continue watchful observation Current Visit: Yes Specialty Discharge - Follow Up or Referrals Follow up with: Fredis Lentz MD [Physician] - 1 Month
--- NOTE | 2016-11-18 09:08 | Pulmonology Progress Note ---
Pulmonary - PN: Subj Interval history: Patient is an 86-year-old white lady that came in with atrial fibrillation and had a CVA. She has been stabilized and back in a sinus rhythm. She is off the heparin drip although her INR is 2.7. She has been reasonably stable but still does not talk much. She does not have any respiratory distress. She did fairly well with the bronchoscope yesterday and we were able to clear some secretions. The right upper lung looks better today although she still has some volume loss on the right. Will continue with respiratory therapy. Overall she looks quite comfortable. Exam (Progress Note) - Constitutional Vitals: Period Temp Pulse Resp BP Sys/Aquino Pulse Ox Last 24 Hr 97.4 F-98.0 F 48-61 16-20 111-163/54-83 90-99 Exam: General appearance: normal weight, other (She does look somewhat chronically ill , she looks around but will not talk much. She is resting comfortably.) - Head Head exam: Present: normal inspection, normocephalic - Eye Eye exam: Present: EOMI. Absent: scleral icterus Pupils: Present: ROMANA - ENT ENT exam: Present: normal exam - Neck Neck exam: Present: normal inspection. Absent: lymphadenopathy, thyromegaly - Respiratory Respiratory exam: Present: She has good breath sounds bilaterally is moving air well. She has better breath sounds on the right although she still has some rhonchi. - Cardiovascular Cardiovascular exam: Present: regular rhythm. She had no loud murmur or gallop. - GI/Abdominal GI/Abdominal exam: Present: normal bowel sounds, soft. Absent: organomegaly, tenderness - Extremities Exam Extremities exam: Absent: calf tenderness, edema - Neurological Exam Neurological exam: Present: altered (She will answer questions but gets confused easily), other (She is unable to move her right arm very well at all) - Psychiatric Psychiatric exam: Absent: anxious - Skin Skin exam: Present: warm, dry Results - Labs CBC & BMP: 11/18/16 06:04 11/18/16 06:04 - Diagnostic Findings Procedure: Chest x-ray: image reviewed by me, report reviewed by me (Chest x- ray shows improvement in the right upper lobe is still some consolidation on the right with volume loss) Assessment and Plan (1) Right upper lobe pneumonia Status: Acute Assessment and plan: Patient looks like she has right upper lobe pneumonia. She is growing pneumococcus out of her sputum and this is certainly consistent with a pneumococcal pneumonia. Her chest x-ray shows some volume loss but not as dense of consolidation. Clinically she seems to be doing okay. Current Visit: Yes Qualifiers: Pneumonia type: due to Pneumococcus Qualified Code(s): J13 - Pneumonia due to Streptococcus pneumoniae (2) Atrial fibrillation with rapid ventricular response Status: Acute Assessment and plan: Her heart rate is back in a sinus rhythm now. She appears to be hemodynamically stable. Current Visit: Yes (3) Hypertension Status: Acute Assessment and plan: Her blood pressure is a little more elevated lately. Current Visit: Yes (4) Acute CVA (cerebrovascular accident) Status: Acute Assessment and plan: She has had a CVA and is unable to move her right arm. Otherwise she seems relatively stable. She has not had much neurological change. She will need a swing bed and more physical therapy. Current Visit: Yes Specialty Discharge - Follow Up or Referrals Follow up with: Fredis Lentz MD [Physician] - 1 Month
[2016-11-18] MEDS: PANTOPRAZOLE 40 MG VIAL IV SCH (09:32)
[2016-11-18] MEDS: METOPROLOL TARTRATE 50 MG TABLET PO SCH ×2 (09:33→22:07)
[2016-11-18] MEDS: ASPIRIN 325 MG TABLET PO SCH (09:36)
--- NOTE | 2016-11-18 11:15 | Pathology Report from [facility] ---
ACCESSION # : [id number] PATIENT NAME : Jacy Lake ORDERING DR : LEIGHA HUSSEIN MD CLINICAL HX: Right Upper Lung Pneumonia POST-OP DX: Same SPECIMEN INFO: Washing,Bronchial,RUL - 15 ml's bloody, cloudy with white pieces. CLASS: II CLASS COMMENTS: Reactive respiratory cells, inflammation, yeastCELL BLOCK: Same CLASS LEGEND: CLASS 0 Material inadequate for diagnosis because of (see comment) CLASS I Absence of atypical or abnormal cells CLASS II Atypical Cytology but no evidence of malignancy CLASS III Cytology suggestive of but not conclusive for malignancy CLASS IV Cytology strongly suggestive of malignancy CLASS V Cytology conclusive for malignancy SERVICE DATE: 11/17/2016 REPORT DATE: 11/18/2016 PATHOLOGIST: Lelia Garcia M.D. [facility] CENTERLin
--- NOTE | 2016-11-18 11:16 | Pathology Report from [facility] ---
ACCESSION # : [id number] PATIENT NAME : Jacy Lake ORDERING DR : LEIGHA HUSSEIN MD CLINICAL HX: Right Upper Lung Pneumonia POST-OP DX: Same SPECIMEN INFO: Brushing,Bronchial,RUL - 1 brush (Received in [facility]) CLASS: II CLASS COMMENTS: Reactive bronchial epithelium, squamous metaplasia, inflammation.CELL BLOCK: Same CLASS LEGEND: CLASS 0 Material inadequate for diagnosis because of (see comment) CLASS I Absence of atypical or abnormal cells CLASS II Atypical Cytology but no evidence of malignancy CLASS III Cytology suggestive of but not conclusive for malignancy CLASS IV Cytology strongly suggestive of malignancy CLASS V Cytology conclusive for malignancy SERVICE DATE: 11/17/2016 REPORT DATE: 11/18/2016 PATHOLOGIST: Summer Garcia
--- NOTE | 2016-11-18 11:31 | Case Mgmt Physician Query Form ---
TB Signs and Symptoms Screening ([place]) INSTRUCTIONS: To be completed annually on residents/staff with a significant Tuberculin Skin Test (TST) upon admission/hire or a prior significant TST. To be completed on all staff at hire. Please respond to each listed symptom with an (X) in either the "YES" or "NO" box. Do you currently have any of the following symptoms: YES NO ( ) ( x) A cough If yes, is it: ( ) Productive ( ) Non- productive ( ) ( x) Hemoptysis (spitting up blood) ( ) (x ) Chest pains ( ) (x ) Weight Loss ( ) ( x) Fever ( ) (x ) Night Sweats ( ) (x ) Weakness ( ) (x ) Loss of Appetite ( ) ( x) Difficulty Breathing If you answered YES" to any of the above questions, how long have symptoms been present? Comments: If you have any questions ,please contact me. Thank You RICK Arzola, COMPUTER [employer] EXAMINER Email :[email or web address]
[2016-11-18] MEDS ORDERED: TUBERCULIN SKIN TEST 0.1 ML SYRINGE INTRADERM ONE (13:45)
[2016-11-18] MEDS: ALBUTEROL/IPRATROPIUM 3 ML NEB RESP TX SCH ×2 (14:21→20:03)
--- NOTE | 2016-11-18 15:50 | Hospitalist Progress Note ---
Assessment and Plan (1) Altered mental status Status: Acute Assessment and plan: due to a moderate to large acute infarction mainly in the left MCA distribution , but a watershed type infarction should be considered. 11/10/2016 CT head x2- showed no acute changes. Patient is less conversive, her right UE is flaccid. Her WBC is up,no fever documented. Her sodium is higher at 150. 11/11/2016- She is scheduled for an MRI this am.Carotid dopplers showed findings consistent with less than 50% stenosis on the right,greater than 70% stenosis on the left, suggested possibility of stenosis at the origin of the left common carotid artery.Vascular Surgery has seen her and they have ordered a CT angiogram. Echo showed normal left ventricular cavity size, mild left ventricular hypertrophy. EF-65%. Neuro has seen-they think it is likely acute CVA in the left MCA distribution. Risk factors included atrial fibrillation as well as left ICA stenosis. Sodium level is slowly improving.Sputum culture grew gram positive cocci- microstrep 11/12/2016 Patient is more alert, oriented x3. MRI showed a moderate to large acute infarction mainly in the left MCA distribution, but a watershed type infarction should be considered. MRA- Limited exam without convincing evidence of significant intracranial arterial abnormalities 11/13/2016 Patient is talking and obeying commands but has no use of the right upper extremity 11/14/2016 Patient is talking, obeying commands. 11/15/2016 She is alert, obeys commands, gets disoriented every now and then. She has no use of the RUE 11/16/2016 Stable 11/17/2016 &11/18/2016 STABLE. Patient is back to her baseline. Plan Continue with Neuro's recommendations For swing bed dc in am t Current Visit: Yes (2) Hypernatremia Status: Acute Assessment and plan: improved Current Visit: Yes (3) Right upper lobe pneumonia Status: Acute Assessment and plan: Sputum grew Strep pneumoniae. BC-negative so far. CXR report-noted. s/P multiple bronchoscopies plan Switch IV Zosyn to po levaquin. Current Visit: Yes Qualifiers: Pneumonia type: due to Pneumococcus Qualified Code(s): J13 - Pneumonia due to Streptococcus pneumoniae (4) Acute respiratory distress Status: Resolved Assessment and plan: improving. Plan Switch IV steroids and Zosyn to po continue with nebs treatment Current Visit: Yes (5) Right sided weakness Status: Acute Assessment and plan: This is due to an acute moderate to large acute infarction mainly in the left MCA distribution, but a watershed type infarction should be considered. Risk factors included atrial fibrillation as well as left ICA stenosis. CT head x2-no active changes Carotid dopplers showed findings consistent with less than 50% stenosis on the right,greater than 70% stenosis on the left, suggested possibility of stenosis at the origin of the left common carotid artery.Vascular Surgery has seen her and they have ordered a CT angiogram. Echo showed normal left ventricular cavity size, mild left ventricular hypertrophy. EF-65%. Neurology and CT surgery are following-will not pursue a carotid artery stenosis at this time and wait for few weeks 11/11/2016 Speech therapy re-evaluated patient and recommended a pureed diet. Patient is more alert and oriented x3. MRI showed a moderate to large acute infarction mainly in the left MCA distribution, but a watershed type infarction should be considered. MRA- Limited exam without convincing evidence of significant intracranial arterial abnormalities 11/13/2016 Patient is talking and obeying commands. She has no use of the right upper extremity yet. 11/14/2016 RUE weakness RLE-slowly improving 11/15/2016 -11/18/2016 She is alert, obeys commands, gets disoriented every now and then. She has no use of the RUE Plan Continue anticoagulation Continue PT/OT Continue other management and Follow Neuro's recommendations For possible dc to swing in am Current Visit: Yes (6) Atrial fibrillation with rapid ventricular response Status: Acute Assessment and plan: Patient has been switched to po metoprolol.INR is therapeutic.She converted to sinus rhythm. plan Continue to follow Cardiology's recommendations. Current Visit: Yes (7) Septic shock Status: Acute Assessment and plan: -improved Sputum grew Strep pneumoniae. Plan See treatment plan above Current Visit: Yes (8) Lung mass Status: Acute Assessment and plan: Family members requested for a CT chest because they've been told in the past that patient has a mass. They want to know details about the mass so they can plan if necessary end of life issues. CT chest showed area of dense consolidation involving the right upper lobe with air bronchograms and several cystic changes concerning for developing cavities.Area of faint alveolar density developing with in the lateral upper lobe and more central left lobe favouring infection. Soft tissue mantle encasing the right hilium without narrowing the associated pulmonary arteries or airway. Bibasilar atelectasis, scarring and tiny bilateral pleural effusions. Pulm has seen. They do not see definite obstruction. She may need a bronchoscope later. Plan continue po antibiotics Appreciates Pulm's input Current Visit: Yes (9) Hypokalemia Status: Acute Assessment and plan: resolved, bmp in am Current Visit: Yes (10) Carotid stenosis Status: Acute Assessment and plan: Carotid dopplers showed findings consistent with less than 50% stenosis on the right,greater than 70% stenosis on the left, suggested possibility of stenosis at the origin of the left common carotid artery. Vascular surgery has seen. Current Visit: Yes Hospitalist: Subjective Interval history: Patient seen. She had no new complaints. She is slowly progressing with PT. She will be going to the swing bed in am. Exam - Constitutional Vitals: Period Temp Pulse Resp BP Sys/Aquino Pulse Ox Last 24 Hr 97.4 F-98.0 F 53-112 16-20 111-163/54-83 96-99 General appearance: no acute distress - Head Head exam: Present: normal inspection - Respiratory Respiratory exam: Present: clear to auscultation bilaterally - Cardiovascular Cardiovascular exam: Present: irregular rhythm - GI/Abdominal GI/Abdominal exam: Present: normal bowel sounds - Extremities Exam Extremities exam: Present: edema (RUE) - Neurological Exam Neurological exam: Present: alert, oriented X3 Results - Labs CBC & BMP: 11/18/16 06:04 11/18/16 06:04 Lab Results: I have reviewed the past 24 hour labs Specialty Discharge - Follow Up or Referrals Follow up with: Fredis Lentz MD [Physician] - 1 Month
[2016-11-18] MEDS ORDERED: LEVOFLOXACIN 750 MG TABLET PO SCH (16:00)
--- NOTE | 2016-11-18 17:23 | Cardiology Progress Note ---
I, Elsy Luna RN, am scribing for, and in the presence of, Juan Antonio Gibbs MD 17 :23. Assessment and Plan - Time spent with patient Time spent with patient: Greater than 30 minutes (1) Atrial fibrillation with rapid ventricular response Status: Acute Assessment and plan: 86-year-old female, presenting with acute MCA CVA, carotid artery stenosis, episode of A. fib/RVR, anemia, pneumonia. Mildly elevated cardiac biomarkers, without significant ischemic EKG changes or arrhythmia. -Atrial fib. Now in SR, mild SB. Amiodarone is an option for recurrent AF. Cont intensive rate/rhythm control, the heart rate was significantly elevated in AF. -Elevated cardiac biomarkers. No clinical findings for ACS. LV EF 65%. Continue ASA. I would hold off statin, LDL 30, frail pt. -Anticoagulation. Coumadin held for 4 days now. INR goal 2-3 and is 2.7. -RIGO. Was seen by vascular surgery. On ASA Current Visit: Yes (2) Acute respiratory distress Status: Resolved Current Visit: Yes (3) Altered mental status Status: Acute Assessment and plan: Urine and blood cultures were negative. Sputum culture with gram-positive cocci. Carotid doppler US with significant stenosis of right ICA. Vascular surgery has evaluated patient, CTA to be obtained. MRA head (-) for acute process. MRI brain 11/11/16 with scattered areas of restriction within left cerebral hemisphere concerning for moderate to large acute infarct, mainly in a left MCA distribution. Neurology is also following patient. Current Visit: Yes (4) Anemia Status: Acute Assessment and plan: Anemia panel results reviewed. Current Visit: Yes (5) Hypertension Status: Acute Assessment and plan: Patient was actually hypotensive on presentation. Antihypertensives previously held. BP is increased now and SBP is 110-140 mm Hg. Adjust medication regimen. Current Visit: Yes (6) Hypothyroidism Status: Chronic Assessment and plan: TSH level 2.03. Current Visit: Yes (7) Right sided weakness Status: Acute Current Visit: Yes (8) Right upper lobe pneumonia Status: Acute Assessment and plan: Agree with IV steroids and IV antibiotics and DuoNebs. WBC noted to be improved today. Defer primary management to hospital medicine. 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 No recurrence of AF or other sustained arrhythmia. Neuro is unchanged and she seems comfortable. Planned for discharge to swing bed facility next 1-2 days. Exam (Progress Note) - Constitutional Vitals: Period Temp Pulse Resp BP Sys/Aquino Pulse Ox Last 24 Hr 97.4 F-98.0 F 48-61 16-20 111-163/54-83 90-99 General appearance: no acute distress, over weight - Head Head exam: Present: normal inspection - Eye Eye exam: Absent: conjunctival injection Pupils: Absent: dilated - ENT ENT exam: Present: normal external ear exam - Neck Neck exam: Present: normal inspection. Absent: tenderness - Respiratory Respiratory exam: Present: decreased breath sounds. Absent: prolonged expiratory phase - Cardiovascular Cardiovascular exam: Present: regular rate and rhythm, systolic murmur - GI/Abdominal GI/Abdominal exam: Present: normal bowel sounds. Absent: distended - Extremities Exam Extremities exam: Present: normal inspection, normal capillary refill. Absent: edema - Neurological Exam Neurological exam: Present: alert, oriented X3, other (R hand paralyzed) - Psychiatric Psychiatric exam: Present: normal affect, flat affect - Skin Skin exam: Present: normal color, warm, other (ecchimoses) Result/EKG - Labs CBC & BMP: 11/18/16 06:04 11/18/16 06:04 Lab Results: I have reviewed the past 24 hour labs Labs: Laboratory Results - last 24 hr 11/17/16 11/17/16 11/18/16 11:31 17:46 01:22 WBC RBC Hgb Hct MCV MCH MCHC RDW Plt Count MPV Neut % (Auto) Lymph % (Auto) Harney % (Auto) Eos % (Auto) Baso % (Auto) Neut # (Auto) Lymph # (Auto) Harney # (Auto) Eos # (Auto) Baso # (Auto) Total Counted Immature Gran % Nucleated RBC % Immature Gran # Segmented Neutrophils Lymphocytes Nucleated RBCs # Platelet Estimate Hypochromasia Allen Cells Morphology Comment INR PT Patient/Control Mix Sodium Potassium Chloride Carbon Dioxide Anion Gap BUN Creatinine GFR Calculation BUN/Creatinine Ratio Glucose POC Glucose 96 317 H 147 H Calculated Osmolality Calcium 11/18/16 11/18/16 11/18/16 06:04 06:04 06:04 WBC 10.8 RBC 3.39 L Hgb 9.7 L Hct 31.2 L MCV 92.0 MCH 29 MCHC 31.1 L RDW 17.1 Plt Count 307 MPV 10.6 Neut % (Auto) 96.6 H Lymph % (Auto) 1.1 L Harney % (Auto) 1.1 L Eos % (Auto) 0.0 Baso % (Auto) 0.1 Neut # (Auto) 10.4 H Lymph # (Auto) 0.1 L Harney # (Auto) 0.1 L Eos # (Auto) 0.0 Baso # (Auto) 0.0 Total Counted 100 Immature Gran % 1.1 Nucleated RBC % 0.0 Immature Gran # 0.12 Segmented Neutrophils 99 H Lymphocytes 1 L Nucleated RBCs # 0.00 Platelet Estimate Adequate Hypochromasia 1+ Allen Cells Slight Morphology Comment INR 2.7 PT Patient/Control Mix 30.1 Sodium 142 Potassium 4.1 Chloride 109 H Carbon Dioxide 26 Anion Gap 11.1 BUN 22 H Creatinine 0.60 GFR Calculation 79 BUN/Creatinine Ratio 36.00 H Glucose 132 H POC Glucose Calculated Osmolality 287.1 Calcium 7.5 L 11/18/16 06:04 WBC RBC Hgb Hct MCV MCH MCHC RDW Plt Count MPV Neut % (Auto) Lymph % (Auto) Harney % (Auto) Eos % (Auto) Baso % (Auto) Neut # (Auto) Lymph # (Auto) Harney # (Auto) Eos # (Auto) Baso # (Auto) Total Counted Immature Gran % Nucleated RBC % Immature Gran # Segmented Neutrophils Lymphocytes Nucleated RBCs # Platelet Estimate Hypochromasia Allen Cells Morphology Comment INR PT Patient/Control Mix Sodium Potassium Chloride Carbon Dioxide Anion Gap BUN Creatinine GFR Calculation BUN/Creatinine Ratio Glucose POC Glucose 137 H Calculated Osmolality Calcium - EKG EKG results: interpreted by me EKG shows: bradycardia (sinus bradycardia, HR 50S) Specialty Discharge - Follow Up or Referrals Follow up with: Fredis Lentz MD [Physician] - 1 Month Bernie Romero Attila, MD, personally performed the services described in this documentation, ascribed by Elsy Luna RN in my presence, and it is both accurate and complete 723 .
[2016-11-19] MEDS: INSULIN LISPRO 100 UNIT/ML SUBCUT SCH ×3 (01:03→12:00)
[2016-11-19] MEDS: ALBUTEROL/IPRATROPIUM 3 ML NEB RESP TX SCH ×2 (01:09→07:38)
--- NOTE | 2016-11-19 08:41 | Pulmonology Progress Note ---
Pulmonary - PN: Subj Interval history: Patient is an 86-year-old white lady that came in with atrial fibrillation and had a CVA. She has been stabilized and back in a sinus rhythm. She is off the heparin drip although her INR is 2.7. She has been reasonably stable but still does not talk much. She does not have any respiratory distress. She rested fairly well last night. She coughs some but has no distress. Overall she is reasonably stable. She does have pneumococcal pneumonia and will need to continue with antibiotics. She will probably go to a swing bed today Exam (Progress Note) - Constitutional Vitals: Period Temp Pulse Resp BP Sys/Aquino Pulse Ox Last 24 Hr 96.8 F-97.9 F 53-112 16-20 133-167/64-72 92-99 Exam: General appearance: normal weight, other (She does look somewhat chronically ill , she looks around but will not talk much. She is resting comfortably.) - Head Head exam: Present: normal inspection, normocephalic - Eye Eye exam: Present: EOMI. Absent: scleral icterus Pupils: Present: ROMANA - ENT ENT exam: Present: normal exam - Neck Neck exam: Present: normal inspection. Absent: lymphadenopathy, thyromegaly - Respiratory Respiratory exam: Present: She has good breath sounds bilaterally is moving air well. She has diminished breath sounds on the right but she has got air movement. - Cardiovascular Cardiovascular exam: Present: regular rhythm. She had no loud murmur or gallop. - GI/Abdominal GI/Abdominal exam: Present: normal bowel sounds, soft. Absent: organomegaly, tenderness - Extremities Exam Extremities exam: Absent: calf tenderness, edema - Neurological Exam Neurological exam: Present: altered (She will answer questions but gets confused easily), other (She is unable to move her right arm very well at all) - Psychiatric Psychiatric exam: Absent: anxious - Skin Skin exam: Present: warm, dry Results - Labs CBC & BMP: 11/18/16 06:04 11/18/16 06:04 Assessment and Plan (1) Right upper lobe pneumonia Status: Acute Assessment and plan: Patient looks like she has right upper lobe pneumonia. She is growing pneumococcus out of her sputum and this is certainly consistent with a pneumococcal pneumonia. Her chest x-ray shows some volume loss but not as dense of consolidation. Clinically she seems to be doing okay. She can probably go on oral antibiotics and go to the swing bed. Current Visit: Yes Qualifiers: Pneumonia type: due to Pneumococcus Qualified Code(s): J13 - Pneumonia due to Streptococcus pneumoniae (2) Atrial fibrillation with rapid ventricular response Status: Acute Assessment and plan: Her heart rate is back in a sinus rhythm now. She appears to be hemodynamically stable. Current Visit: Yes (3) Hypertension Status: Acute Assessment and plan: Her blood pressure has been stable lately. Current Visit: Yes (4) Acute CVA (cerebrovascular accident) Status: Acute Assessment and plan: She has had a CVA and is unable to move her right arm. Otherwise she seems relatively stable. She has not had much neurological change. She will need a swing bed and more physical therapy. Current Visit: Yes Specialty Discharge - Follow Up or Referrals Follow up with: Fredis Lentz MD [Physician] - 1 Month
--- NOTE | 2016-11-19 08:58 | Discharge Summary ---
<Riley Calderon - Last Filed: 11/19/16 08:48> Hospital Course - Hospital Course Hospital Course: Ms. Lake is an 86-year-old white female who was admitted to the hospital on with right-sided weakness, altered mental status, shortness of breath, lethargic. On admission, patient had a head CT which revealed possible lacunar infarction. Follow-up MRI revealed results concerning for moderate to large acute infarction with left MCA distribution. Neurology was consulted. Carotid Doppler showed greater than 70% stenosis in the left ICA. Echocardiogram revealed an EF of 65% with no significant valvular abnormality. Patient was found to have new onset atrial fibrillation with RVR. Cardiology was consulted and the patient was started on IV Cardizem for rate control and amiodarone for rhythm control. Chest x-ray on admission revealed consolidation in the right upper lobe. Pulmonology was consulted and performed a bronchoscopy on 2016. Bronchoscopy revealed right upper lobe pneumonia with mucosal inflammation. Sputum grew strep pneumoniae, blood culture negative. Patient was continued on IV antibiotics, Zosyn. Over the course of her stay, the patient did show mild signs of improvement. While her right upper extremity remains flaccid, patient has begun to move her right lower extremity. At this time, the patient has reached maximal benefit from hospitalization and is ready for discharge. She will be discharged to swing bed facility in [facility] with further physical therapy and medical management today. - Time spent with patient Time with patient DS: Greater than 30 minutes Specialty Discharge - Follow Up or Referrals Follow up with: Fredis Lentz MD [Physician] - 1 Month Discharge Plan - Discharge Data Disposition: Swing Bed, [facility], [facility] - Discharge Medications New Metoprolol Tartrate Tab [Lopressor Tab] 50 mg PO BID tablet Acetaminophen Tab [Tylenol Tab] 325 mg PO Q4H PRN #0 tablet PRN Reason: fever, headache/body aches Albuterol/Ipratropium Neb [Duoneb] 3 ml RESP TX RT Q6H Aspirin Tab 325 mg PO DAILY tablet Insulin Lispro [HumaLOG] See Protocol SUBCUT Q6HR unit Levofloxacin Tab [Levaquin Tab] 750 mg PO Q24H tablet Pantoprazole Tab [Protonix Tab] 40 mg PO DAILY #30 tablet guaiFENesin/DM ER 600-30 [Mucinex Dm 600-30 MG] 1 tablet PO BID PRN #0 tablet PRN Reason: Congestion predniSONE TAB [PredniSONE] 40 mg PO DAILY tablet tiZANidine [Zanaflex] 2 mg PO Q8H PRN #0 tablet PRN Reason: Muscle Spasm Continue Sertraline [Zoloft] 50 mg PO BEDTIME Lovastatin 80 mg PO AC LUNCH tiZANidine [Zanaflex] 2 mg PO Q8HR PRN PRN Reason: Muscle Spasm Levothyroxine Tab [Synthroid Tab] 0.025 mg PO DAILY rOPINIRole [Requip] 0.5 mg PO BEDTIME Discontinued Lisinopril/Hydrochlorothiazide [Lisinopril-Hctz 10-12.5 mg Tab] 1 tablet PO DAILY - Follow Up or Referral Follow Up: Fredis Lentz MD [Physician] - 1 Month - Forms/Instructions Exam - Constitutional Vitals: Period Temp Pulse Resp BP Sys/Aquino Pulse Ox Last 24 Hr 96.8 F-97.9 F 53-112 16-20 133-167/64-72 92-99 Discharge Results Procedures and tests throughout hospitalization: Pending Orders 11/16/16 21:36 Occult Blood, Stool Routine 11/17/16 07:30 AFB Culture/Smears Routine Bronchial Washings C & Gram St Routine Fungal Culture w/ Prep Routine 11/17/16 07:43 Cytology Request Routine Labs on day of discharge: Labs from last 24 hours 11/19/16 11/19/16 11/18/16 07:56 05:36 23:44 POC Glucose 65 L 80 129 H 11/18/16 11/18/16 17:37 11:22 POC Glucose 180 H 287 H Preliminary micro results at discharge 11/17/16 07:30 Bronchial Washings Culture - Preliminary Bronchial Washings Yeast DS: Provider Date of admission: 11/09/16 16:02 Primary care physician: . No PCP Attending physician on admission: Randi Hagen MD Consults: 11/09/16 17:45 Consult to Pharmacy [CONS] Routine Reason for Pharmacy Consult: Adjust Meds Renal Funct 11/09/16 19:00 Consult to Physician [CONS] Routine Comment: Consulting Provider: Fredis Lentz 11/10/16 09:54 Consult to Occupational Therapy [CONS] Routine Reason for Occupational Therapy: Evaluate and Treat Consult to Physical Therapy [CONS] Routine Reason for Physical Therapy: Evaluate and Treat 11/10/16 11:22 Consult to Physician [CONS] Routine Comment: rapid afib Consulting Provider: Kieran Mcgowan Consulting Provider Notified: Yes Consult to Specialist Group: Cardiology When should Consulting Provider be notified: Now Person Notified: OLYA Date Notified: 11/10/16 Time Notified: 11:55 11/10/16 14:35 Consult to Dietitian [CONS] Routine Reason for Dietitian: TF-Initiate/Manage 11/11/16 08:00 Consult to Physician [CONS] Routine Comment: left carotid >70% occluded Consulting Provider: Fransisco Stuart Consulting Provider Notified: Yes Consult to Specialist Group: Surgery When should Consulting Provider be notified: Now Person Notified: DONYA Date Notified: 11/11/16 Time Notified: 08:35 11/12/16 11:18 Consult to Pharmacy [CONS] Routine Reason for Pharmacy Consult: Other Comment: coumadin dosing 11/13/16 08:32 Consult to Physician [CONS] Routine Comment: lung mass Consulting Provider: Redd Méndez Consulting Provider Notified: Yes When should Consulting Provider be notified: Now Person Notified: Dr. Méndez Date Notified: 11/13/16 Time Notified: 08:34 11/17/16 15:40 Consult to Case Mgmt/Social Srvs [CONS] Routine Reason for Case Mgmt/Social Srvs: Swingbed/SNF/Care Home Rehab Discharging clinician: Riley GIRARD Expected date of discharge: 11/19/16 <Randi Hagen - Last Filed: 11/19/16 09:52> Hospital Course - Hospital Course Hospital Course: Time spent: 40mins - Time spent with patient Time with patient DS: Greater than 30 minutes (40mins) Diagnosis - Discharge Diagnosis (1) Altered mental status Status: Acute (2) Hypernatremia Status: Acute (3) Right upper lobe pneumonia Status: Acute (4) Acute respiratory distress Status: Resolved (5) Right sided weakness Status: Acute (6) Atrial fibrillation with rapid ventricular response Status: Acute (7) Septic shock Status: Acute (8) Lung mass Status: Acute (9) Hypokalemia Status: Acute (10) Carotid stenosis Status: Acute Discharge Plan - Discharge Data Condition at Discharge: Stable Discharge Diet: heart healthy Activity: resume usual activities as tolerated Exam - Constitutional General appearance: no acute distress - Respiratory Respiratory exam: Present: clear to auscultation bilaterally - Cardiovascular Cardiovascular exam: Present: irregular rhythm - GI/Abdominal GI/Abdominal exam: Present: normal bowel sounds - Extremities Exam Extremities exam: Present: other (RUE flaccid) - Neurological Exam Neurological exam: Present: alert, oriented X3
[2016-11-19] MEDS ORDERED: predniSONE 20 MG TABLET PO SCH (09:00)
[2016-11-19] MEDS: PANTOPRAZOLE 40 MG VIAL IV SCH (09:24)
[2016-11-19] MEDS: METOPROLOL TARTRATE 50 MG TABLET PO SCH (09:24)
[2016-11-19] MEDS: ASPIRIN 325 MG TABLET PO SCH (09:24)
[2016-11-19 11:58] VITALS: BP 145/80
== END 2016-11-19 12:22 | DRG 871 ==
LOC: N.ED 13:50 → N.EDINP 16:02 → N.ICU 17:38 → N.TELEN 11-15 14:52
PROVIDERS: ADMIT Internal Medicine; ATTEND Internal Medicine